=== PATIENT | male | born 1945 | race Caucasian/White ===

== ENCOUNTER → 2016-08-21 19:12 | Outpatient (CLI) | payer OTHER, MEDICAID ==
[2015-01-04 08:40] VITALS: BMI 33.6
[~2016-08-21 19:12] MED LIST: ECOTRIN325 MG PO; HYDROCHLOROTHIA25 MG GT; LANTUS SOL100 UNIT/1; NOVOLOG MIX 70/10 ML SQ; PLAVIX75 MG PO; PLETAL50 MG PO; TRIGLIDE160 MG PO; ZESTRIL40 MG PO; ZOCOR40 MG PO
== END | disposition home or self-care (01) ==
LOC: D.LABREF 19:12
DX: R82.71 Bacteriuria (principal)

== ENCOUNTER 2016-09-04 15:16 | Inpatient (IN) | payer MEDICARE, MEDICAID ==
[~2016-09-04] VITALS: Ht 188 cm; Wt 127.0 kg
--- NOTE | 2016-09-04 15:43 | NUR ---
1535-RECEIVED VIA DIRECT ADMIT IN WHEELCHAIR TO ROOM WITH PATIENT TELLING ME "MY SPEECH IS SLURRED". WHEN ASKED HE SAID THAT IT STARTED THIS AM. SMALL SCAB AREA SEEN TO UPPER BACK, HEALING SCABBED AREA UNDER RIGHT CHIN AREA (STATES HE CUTS HIMSELF SHAVING). LEFT HAND SUPREME COURT JUDGE AND LEFT PUSHING WITH FOOT IS SLIGHLTY WEAKER THAN RIGHT. LEFT HAND IS 2-3+ THAN RIGHT. RIGHT HAND 1-2+ EDEMA. INSTRCUTED TO USE CALL LIGHT FOR ALL NEEDS, BED ALARM SET. NON SKID SOCKS PLACED ON PATIENT ALONG WITH YELLOW ARM BAND. WILL ADMIT.
[2016-09-04] MEDS ORDERED: LANTUS SOL100 UNIT/1 SC ×2 (15:50→15:51)
[2016-09-04] MEDS ORDERED: NOVOLIN 70/30 110 ML SC (15:52)
[2016-09-04 15:53] VITALS: BP 146/88; BMI 36.0
[2016-09-04 16:12] LABS: BASOPHILS 0.4 % (0-2); EOSINOPHILS 4.2 % (0-7); HEMATOCRIT 35.9 % (42.0-54.0); HEMOGLOBIN 11.8 g/dL (13.5-17.5); IMMATURE GRANULOCYTES 0.3 % (0-5); MCH 30.7 pg (26.0-34.0); MCHC 32.9 g/dL (31.0-37.0); MCV 93.5 fL (80.0-100.0); MEAN PLATELET VOLUME 11.6 fL (7.4-10.4); NEUTROPHILS 68.1 % (40-80); PLATELET COUNT 204 10x3/uL (130-400); RBC 3.84 10x6/uL (4.20-6.10); RDW 13.1 % (11.5-14.5)
--- NOTE | 2016-09-04 16:16 | NUR ---
SALINE LOCK X 1 STICK WITH 22G PER CHAYA SINHA, RN
[2016-09-04 16:30] LABS: ALBUMIN 3.6 g/dL (3.4-5.0); ALKALINE PHOSPHATASE 57 U/L (46-116); ALT (SGPT) 26 U/L (10-68); BILIRUBIN - TOTAL 0.34 mg/dL (0.2-1.3); CALC OSMOLALITY 297 mosm/kg (275-300); CALCIUM 8.5 mg/dL (8.5-10.1); CARBON DIOXIDE 22.9 mmol/L (21.0-32.0); CHLORIDE - SERUM 109 mmol/L (98-107); CREATININE - SERUM 2.6 mg/dL (0.6-1.3); POTASSIUM - SERUM 5.6 mmol/L (3.5-5.1); PROTEIN - SERUM 6.9 g/dL (6.4-8.2); SODIUM 141 mmol/L (136-145); UREA NITROGEN 55 mg/dL (7-18); eGFR NON AFRICAN AMERICAN 26 mL/min (90-120)
[2016-09-04 16:31] LABS: GLUCOSE 132 mg/dL (74-106)
[2016-09-04 16:36] VITALS: BP 146/88
[2016-09-04 16:41] LABS: CKMB 6.2 U/L (0.0-3.6); CREATINE KINASE 236 UL (21-232); PRO BNP 863 pg/mL (0-125); THYROID STIMULATING HORMONE 1.38 uIU/mL (0.36-3.74)
[2016-09-04 16:44] LABS: TROPONIN-I < 0.017 ng/mL (0.000-0.060)
[2016-09-04 19:00] VITALS: BP 146/63
--- NOTE | 2016-09-04 19:49 | NUR ---
ASSESSMENT COMPLETE, PT A&O. RESPERATIONS EVEN ON RA. IV TO LEFT AC WITH NS INFUSING AT KVO. SITE CLEAN AND DRY. PT ASKING FOR ASSIST TO BR, ASKED IF HE WOULD USE HIS URINAL, PT INSISTED ON GETTING UP TO BR. GOT SECOND NURSE, STOOD PT WITH MAX ASSIST, PT WEAK, BUT STILL INSISTED ON WALKING TO BR. PT VOIDED 300 CC INTO URINAL. BACK TO BED WITH 2 PEOPLE ASSIST.
[2016-09-04 22:37] LABS: CREATINE KINASE 213 UL (21-232)
[2016-09-04 22:38] LABS: TROPONIN-I < 0.017 ng/mL (0.000-0.060)
[2016-09-05] VITALS: BP 163/75
--- NOTE | 2016-09-05 01:00 | NUR ---
CALL LIGHT IN REACH, WILL CONTINUE WITH PLAN OF CARE.
[2016-09-05 04:00] VITALS: BP 106/70
[2016-09-05 05:55] LABS: BASOPHILS 0.4 % (0-2); EOSINOPHILS 4.7 % (0-7); HEMATOCRIT 35.7 % (42.0-54.0); IMMATURE GRANULOCYTES 0.3 % (0-5); MCH 31.3 pg (26.0-34.0); MCHC 33.6 g/dL (31.0-37.0); MONOCYTES 9.1 % (2-11); NEUTROPHILS 62.5 % (40-80); PLATELET COUNT 191 10x3/uL (130-400); RBC 3.84 10x6/uL (4.20-6.10); WBC 7.5 10x3/uL (4.8-10.8)
[2016-09-05 07:19] LABS: ALBUMIN 3.3 g/dL (3.4-5.0); ALKALINE PHOSPHATASE 63 U/L (46-116); ALT (SGPT) 27 U/L (10-68); BILIRUBIN - TOTAL 0.31 mg/dL (0.2-1.3); CALCIUM 8.5 mg/dL (8.5-10.1); CARBON DIOXIDE 20.8 mmol/L (21.0-32.0); CHLORIDE - SERUM 104 mmol/L (98-107); CKMB 4.7 U/L (0.0-3.6); CREATINE KINASE 211 UL (21-232); CREATININE - SERUM 2.2 mg/dL (0.6-1.3); POTASSIUM - SERUM 5.3 mmol/L (3.5-5.1); PRO BNP 467 pg/mL (0-125); PROTEIN - SERUM 6.9 g/dL (6.4-8.2); SODIUM 136 mmol/L (136-145); UREA NITROGEN 52 mg/dL (7-18); eGFR NON AFRICAN AMERICAN 32 mL/min (90-120)
[2016-09-05 07:20] LABS: CALC OSMOLALITY 294 mosm/kg (275-300); GLUCOSE 269 mg/dL (74-106); TROPONIN-I < 0.017 ng/mL (0.000-0.060)
[2016-09-05 08:11] VITALS: BP 158/61
--- NOTE | 2016-09-05 08:27 | NUR ---
IV FLUIDS INCREASED TO 75 CC/HR ORDERED.
[2016-09-05 10:25] VITALS: Ht 188 cm; Wt 127.0 kg
[2016-09-05 12:08] VITALS: BP 167/55
[2016-09-05 15:17] VITALS: BP 159/60
--- NOTE | 2016-09-05 15:28 | NUR ---
SCD'S ON EUGENIO LE
--- NOTE | 2016-09-05 17:42 | NUR ---
SALINE LOCK REMOCED WITH CATH TIP INTACT. VERBAL AND WRITTEN DISCHARGE INSTRUCTIONS GIVEN TO PATIENT. DISCHARGED HOME VIA WHEELCHAIR.
--- NOTE | 2016-09-05 18:13 | NUR ---
Patient Name: STEW AARON Admission Status: Urgent Accout number: [id number] Admission Date: 09-04-2016 : 1945 Admission Diagnosis:SHORTNESS OF BREATH Attending: LUCINA Current LOS: 1 Anticipated DC Date: 09-05-2016 Planned Disposition: Home Primary Insurance: [facility] LATE ENTRY: Discharge Planning Comments: * Is the patient Alert and Oriented? Yes 0 * How many steps to enter\exit or inside your home? 3 0 * PCP DR. JOHN 0 * Pharmacy [facility] 0 * Preadmission Environment Home Alone 0 * ADLs Independent 0 * Equipment Cane Shower Chair Walker 0 * Other Equipment NO MEDICAL EQUIPMENT PROVIDER PREFERENCE 0 * List name and contact numbers for known caregivers / representatives who currently or will assist patient after discharge: JULIETA CHAPA, BROTHER IN LAW, (LIVES NEXT DOOR TO PT) 0 * Community resources currently utilized None 0 * Please name any agencies selected above. NONE 0 * Additional services required to return to the preadmission environment? No 0 * Can the patient safely return to the preadmission environment? Yes 0 * Has this patient been hospitalized within the prior 30 days at any hospital? No 0 CM MET WITH PT IN ROOM TO DISCUSS DISCHARGE PLANNING AND NEEDS. PT REPORTS LIVING AT HOME INDEPENDENTLY AND ALONE. PT HAS CANE, SHOWER CHAIR AND WALKER. PT HAS NO OUTSIDE SERVICES ASSISTING IN THE HOME. CM DISCUSSED AVAILABILITY OF HOME HEALTH, REHAB SERVICES AND MEDICAL EQUIPMENT. PT DENIES DISCHARGE NEEDS, REPORTS IS DRIVING HIMSELF HOME AT DISCHARGE TODAY. Oil [employer] Caser: Shar Osborn
--- NOTE | 2016-09-08 15:02 | CN ---
PATIENT NAME:STEW AARON MEDICAL RECORD: [id number] : [birth year] LOCATION:D.M2 D.2104 ADMIT DATE: 09/04/16 ACCOUNT: [id number] CONSULTING PHYSICIAN: DOMINIC LYNCH MD REFERRING PHYSICIAN: VERONICA JOHN DO DATE OF CONSULTATION: 09/04/2016 Cardiology Consultation DIAGNOSES: 1. Dyspnea on exertion and shortness of breath. 2. Coronary artery disease. 3. Previous cardiac stenting. 4. Hypertension. 5. Hyperlipidemia. HISTORY OF PRESENT ILLNESS: This is a gentleman who was previously followed by Dr. Narayan, PTCA stent 1 year ago and he has been short of breath; however, after the stent, the shortness of breath did not change. He is markedly overweight and out of shape. He has not had any chest pain or chest discomfort. Troponin is normal. EKG is with no acute ST-T abnormalities. Blood pressure is controlled on Zestril, hyperlipidemia is controlled on Zocor. He does remain on aspirin and Plavix. PHYSICAL EXAMINATION: GENERAL APPEARANCE: Well-nourished, well-developed, appears stated age. Level of distress, comfortable. PSYCHIATRIC: Mental status, alert, normal affect. Orientation, oriented to time, place and person. EYES: Lids and conjunctiva, noninjected. No discharge, no pallor. ENT: Lips, teeth, gums, normal dentition. Oropharynx, no cyanosis, no pallor. NECK: Carotid arteries, bilateral normal upstroke, no bruits, no thrills. JUGULAR VEINS: No jugular venous pressure or distention. CERVICAL LYMPH NODES: Nontender, nonenlarged. THYROID: Not enlarged. Nontender. No nodules. LUNGS: Respiratory effort, unlabored. CHEST: Normal curvature. No thoracic deformity. No chest wall tenderness. Percussion, resonant. Auscultation, clear. No wheezes, no rales, no rhonchi. CARDIOVASCULAR: Precordial exam, nondisplaced. No heaves or pericardial thrills. Rate and rhythm, regular. Heart sounds, normal S1, normal S2. No S3, no gallop, no rub. Systolic murmur, not heard. Diastolic murmur, not heard. EXTREMITIES: No cyanosis, no edema. Peripheral pulses, full and equal in all extremities, except as noted. No bruits appreciated. ABDOMEN: Soft, nondistended. Normal aorta. No bruit. Nontender. No masses. Liver, nontender, no hepatomegaly. Spleen, nontender, no splenomegaly. MUSCULOSKELETAL: No joint tenderness. No joint swelling. No erythema. NEUROLOGICAL: Normal gait, normal strength, normal tone. SKIN: Warm and dry. REVIEW OF SYSTEMS: The patient reports easy bruising but reports no swollen glands. The patient reports no fever, no night sweats, no significant weight gain, no significant weight loss. No significant exercise tolerance. The patient reports no dry eyes, no irritation, no vision change. Patient reports no difficulty hearing and no ear pain. Patient reports no frequent nose bleeds or nose and sinus problems. Patient reports on arm pain on exertion. No CONSULT REPORT [id number] STEW AARON shortness of breath while lying down. No history of heart murmur. Patient reports no cough, no wheezing or coughing up blood. Patient reports no abdominal pain, no vomiting. Normal appetite. No diarrhea and not vomiting blood. No nausea and no constipation. Patient reports no incontinence. No difficulty urinating. No hematuria. No increased frequency. Patient reports no muscle aches. No weakness, no arthralgias, no back pain. No swelling of the extremities. Patient reports no abnormal mole, no jaundice, no rashes. Reports no loss of consciousness. No weakness and no numbness. No seizures, dizziness, or headaches. The patient reports no depression, no sleep disturbance, feeling safe in a relationship and no alcohol abuse. Patient reports on fatigue. Reports no runny nose or sinus pressure. No itching, no hives, and no frequent sneezing. OVERALL IMPRESSION: Shortness of breath, dyspnea on exertion, this is more of chronic issue. According to his history, this is nothing acute and has not worsened with no chest pain and shortness of breath was no different after the percutaneous transluminal coronary angioplasty stent for single-vessel disease. I do not feel strongly that he needs continued workup from the standpoint of ischemic heart disease. I do not think that his shortness of breath is secondary to his ongoing ischemic heart disease. TRANSINT:[id number] Voice Confirmation ID: [id number] DOCUMENT ID: [id number] DOMINIC LYNCH MD at [id number] CC: [id number] DICTATION DATE: 09/04/16 165 STUDENT DEVELOPMENT SPECIALIST: 09/05/16 0036 DIS IN 09/05/16 [facility] [address] [place], [facility]
== END 2016-09-05 17:43 | disposition home or self-care (01) | DRG 684 ==
LOC: D.M2 15:16
PROVIDERS: ADMIT Family Medicine
DX: N19 Unspecified kidney failure (principal); I25.10 Atherosclerotic heart disease of native coronary artery without angina pectoris; I10 Essential (primary) hypertension; E78.5 Hyperlipidemia, unspecified; E11.9 Type 2 diabetes mellitus without complications; Z95.5 Presence of coronary angioplasty implant and graft; Z86.73 Personal history of transient ischemic attack (TIA), and cerebral infarction without residual deficits; Z87.891 Personal history of nicotine dependence

== ENCOUNTER → 2016-10-02 20:22 | Outpatient (CLI) | payer MEDICARE, MEDICAID ==
[2016-09-05 10:25] VITALS: BMI 35.9
[~2016-10-02 20:22] MED LIST changes: +LANTUS SOL100 UNIT/1 SC; +NOVOLIN 70/30 110 ML SC
== END | disposition home or self-care (01) ==
LOC: D.LABREF 20:22
DX: Z13.89 Encounter for screening for other disorder (principal)

== ENCOUNTER 2016-11-10 14:48 | Inpatient (IN) | payer MEDICARE, MEDICAID ==
[~2016-11-10] VITALS: Ht 188 cm; Wt 122.3 kg
[~2016-11-10 14:48] MED LIST changes: -HYDROCHLOROTHIA25 MG GT; +HYDROCHLOROTHIA25 MG PO
[2016-11-10 15:51] LABS: BASOPHILS 0.2 % (0-2); EOSINOPHILS 2.2 % (0-7); HEMATOCRIT 37.6 % (42.0-54.0); HEMOGLOBIN 12.1 g/dL (13.5-17.5); IMMATURE GRANULOCYTES 0.3 % (0-5); LYMPHOCYTES 11.5 % (15-50); MCH 30.4 pg (26.0-34.0); MCHC 32.2 g/dL (31.0-37.0); MCV 94.5 fL (80.0-100.0); MEAN PLATELET VOLUME 10.9 fL (7.4-10.4); MONOCYTES 8.8 % (2-11); PLATELET COUNT 298 10x3/uL (130-400); RBC 3.98 10x6/uL (4.20-6.10); RDW 12.7 % (11.5-14.5); WBC 12.2 10x3/uL (4.8-10.8)
[2016-11-10 16:00] VITALS: BP 155/74
--- NOTE | 2016-11-10 17:01 | NUR ---
WOUND CARE CONSULT: LARGE NECROTIC WOUND NOTED TO LATERAL HEEL OF LEFT FOOT. FOUL SMELLING. MEASURES APPROX 10CM X 10CM X NECROTIC WET BLACK TISSUE. PERIWOUND IS RED WITH OOZING PUSTULES. WOUND CULTURES OBTAINED PER ORDERS AFTER CLEANSING WELL. APPLIED MAXORB AG TO WOUND BED COVERED WITH 4X4S AND SECURED WITH KERLIX. PT TOLERATED WELL.
[2016-11-10 17:09] LABS: ALBUMIN 3.7 g/dL (3.4-5.0); BILIRUBIN - TOTAL 0.3 mg/dL (0.2-1.3); CALCIUM 9.4 mg/dL (8.5-10.1); CARBON DIOXIDE 23.1 mmol/L (21.0-32.0); CREATININE - SERUM 2.7 mg/dL (0.6-1.3); POTASSIUM - SERUM 5.1 mmol/L (3.5-5.1); PROTEIN - SERUM 7.8 g/dL (6.4-8.2)
[2016-11-10 18:56] VITALS: BP 155/74; BMI 35.2
--- NOTE | 2016-11-10 19:35 | NUR ---
PT IN BED WITH HOB UP FOR COMFORT. WATCHING TV. ALERT & ORIENTED. NO O2. RIGHT AC NS @ 100ML/HR. UNITED AUBURN. BED IN LOWEST POSITION AND CALL LIGHT WITHIN REACH.
[2016-11-10 20:08] VITALS: BP 173/68
[2016-11-11 01:09] VITALS: BP 139/43
[2016-11-11 04:00] VITALS: BP 126/40
[2016-11-11 04:53] LABS: BASOPHILS 0.3 % (0-2); HEMATOCRIT 34.3 % (42.0-54.0); HEMOGLOBIN 10.9 g/dL (13.5-17.5); IMMATURE GRANULOCYTES 0.2 % (0-5); LYMPHOCYTES 17.5 % (15-50); MCH 29.8 pg (26.0-34.0); MCHC 31.8 g/dL (31.0-37.0); MCV 93.7 fL (80.0-100.0); MEAN PLATELET VOLUME 10.8 fL (7.4-10.4); MONOCYTES 9.1 % (2-11); NEUTROPHILS 69.9 % (40-80); PLATELET COUNT 248 10x3/uL (130-400); RBC 3.66 10x6/uL (4.20-6.10); RDW 12.6 % (11.5-14.5); WBC 10.6 10x3/uL (4.8-10.8)
[2016-11-11 05:27] LABS: ALBUMIN 2.9 g/dL (3.4-5.0); ANION GAP 14.4 mmol/L (8-16); BILIRUBIN - TOTAL 0.4 mg/dL (0.2-1.3); CALCIUM 8.9 mg/dL (8.5-10.1); CARBON DIOXIDE 22.5 mmol/L (21.0-32.0); CREATININE - SERUM 2.5 mg/dL (0.6-1.3); POTASSIUM - SERUM 4.9 mmol/L (3.5-5.1); PROTEIN - SERUM 6.9 g/dL (6.4-8.2)
--- NOTE | 2016-11-11 05:55 | NUR ---
RIGHT AC INFILTRATED. D/C WITH CATH TIP INTACT.
[2016-11-11 06:00] LABS: ERYTHROCYTE SEDIMENTATION RATE 48 mm/hr (0-20)
--- NOTE | 2016-11-11 06:11 | NUR ---
LEFT HAND 22GAUGE INSERTED ON X1 ATTEMPT BY JASWANT BASURTO.
[2016-11-11 08:00] VITALS: BP 143/56
[2016-11-11 09:57] VITALS: Ht 188 cm; Wt 122.3 kg
[2016-11-11 12:00] VITALS: BP 176/77
[2016-11-11 16:00] VITALS: BP 192/82
--- NOTE | 2016-11-11 16:03 | NUR ---
ALERT AND ORIENTED X4. RESTING IN BED WATCHING TV. LT FOOT DRESSING CHANGE COMPLETE PER ORDER. DENIES PAIN OR SOB. REFUSE SCDs. BED LOCKED AND LOW. CALL LIGHT IN REACH. TWO SIDERAILS UP.
[2016-11-11 19:00] VITALS: BP 154/61
--- NOTE | 2016-11-11 19:17 | NUR ---
Received patient in bed watching TV. Alert and oriented x 4. PIV in back of left hand, currently infusing Vancomycin IVPB. Dressing to left foot is C/D/I and dated. Denies any pain or discomfort at this time. Will continue to monitor.
--- NOTE | 2016-11-11 21:39 | NUR ---
HS Blood sugar = 317, given 12 Units of Regular Humulin insulin per sliding scale and given routine dose of 65 Units of Lantus. Last BP = 154/61, was 192/82 on previous shift and had been given Lisinopril 40mg @1820. Continues to deny pain or discomfort.
[2016-11-12] VITALS (7 sets, daily range): BP systolic 111–157; BP diastolic 52–79
--- NOTE | 2016-11-12 01:12 | NUR ---
Resting comfortably in bed, respirations unlabored, eyes closed, quiet, deemed to be sleeping.
--- NOTE | 2016-11-12 04:41 | NUR ---
Continues sleeping, no signs of distress.
[2016-11-12 05:09] LABS: BASOPHILS 0.4 % (0-2); EOSINOPHILS 4.5 % (0-7); HEMATOCRIT 34.2 % (42.0-54.0); IMMATURE GRANULOCYTES 0.2 % (0-5); LYMPHOCYTES 15.1 % (15-50); MCHC 32.2 g/dL (31.0-37.0); MCV 93.2 fL (80.0-100.0); MEAN PLATELET VOLUME 10.6 fL (7.4-10.4); MONOCYTES 9.4 % (2-11); NEUTROPHILS 70.4 % (40-80); PLATELET COUNT 240 10x3/uL (130-400); RBC 3.67 10x6/uL (4.20-6.10); RDW 12.5 % (11.5-14.5); WBC 8.9 10x3/uL (4.8-10.8)
[2016-11-12 05:16] LABS: HEMOGLOBIN A1C 10.1 % (4.8-6.0)
[2016-11-12 05:20] LABS: ANION GAP 15.5 mmol/L (8-16); BILIRUBIN - TOTAL 0.3 mg/dL (0.2-1.3); CALCIUM 8.5 mg/dL (8.5-10.1); CARBON DIOXIDE 24.4 mmol/L (21.0-32.0); CREATININE - SERUM 2.4 mg/dL (0.6-1.3); POTASSIUM - SERUM 4.9 mmol/L (3.5-5.1); PROTEIN - SERUM 6.6 g/dL (6.4-8.2); VANCOMYCIN - TROUGH 16.3 ug/mL (10.0-20.0)
--- NOTE | 2016-11-12 15:57 | NUR ---
ALERT AND ORIENTED X4. RESTING IN BED. CONSENTS FOR LT FOOT DEBRIDEMENT SIGNED ON CHART. SHOWER AND LINEN CHANGE COMPLETE. DENIES ANY NEEDS. BED LOCKED AND LOW. CALL LIGHT IN REACH. TWO SIDERAILS UP.
--- NOTE | 2016-11-12 17:00 | NUR ---
TAKEN TO PROCEDURE VIA BED. CONTINUE PLAN OF CARE AND SAFETY PRECAUTIONS.
--- NOTE | 2016-11-12 18:49 | NUR ---
ALERT AND ORIENTED X4. RETURN TO ROOM VIA BED FROM PROCEDURE. NS INFUSING LT HAND IV AT 100mL/HR. INSTRUCTED FROM OR-DOCTOR TO MAKE PATIENT CONTACT ISO. BP-147/67, T-97.8, R-18, O2-95% RA, P-70. ELEVATE LT FOOT ON PILLOW. DENIES PAIN. FOOT WRAPPED WITH RAVI BANDAGE. REPORT OFF TO SB GANDHI TO TAKE OVER PLAN OF CARE. BED LOCKED AND LOW. CALL LIGHT IN REACH. TWO SIDERAILS UP.
--- NOTE | 2016-11-12 20:35 | NUR ---
NURSE ROUNDS @ 19:30 - PT TRYING TO AMBULATE AFTER JUST RETURNING FROM SURGERY FOR I&D TO LEFT FOOT. I INSTRUCTED PT TO ALWAYS CALL WHEN NEEDING ANY ASSISTANCE, THE BLOCK IN HIS FOOT/LEG IS STILL ACTIVE AND HE IS AT GREAT RISK FOR FALLING. PT WAS ASSISTED TO BATHROOM BY TELECOMMUNICATION SYSTEMS DESIGNER AND RETURNED TO BED WITHOUT ANY DIFFICULTY. WILL ENCOURAGE PT TO USE A URINAL UNTIL HE IS MORE STABLE TO WALK. PT C/O BEING HUNGRY, SO I DID GIVE HIM A TURKEY SANDWICH WITH GRAPES AND DIET COLA. PT DENIES ANY NEEDS, DRESSING/WRAP CLEAN, DRY, AND INTACT. CONTINUE TO MONITOR PT CLOSELY. BED ALARM ON. BED LOW, CALL LIGHT IN REACH, SIDE RAILS X 2, HOB 40 DEGREES SO PT CAN EAT.
[2016-11-13] VITALS: BP 129/42
--- NOTE | 2016-11-13 01:24 | NUR ---
PT RESTING COMFORTABLY, EASILY ROUSABLE TO VERBAL STIMULI, DENIES ANY NEEDS. CONTINUE TO MONITOR CLOSELY. PT STATES HIS FOOT IS STILL "" FROM RECENT SURGERY AND NERVE BLOCK USED. CONTINUE TO MONITOR CLOSELY. BED LOW, CALL LIGHT IN REACH, SIDE RAILS X 2, HOB 20 DEGREES.
[2016-11-13 04:00] VITALS: BP 157/69
[2016-11-13 04:59] LABS: BASOPHILS 0.2 % (0-2); EOSINOPHILS 3.9 % (0-7); HEMATOCRIT 33.1 % (42.0-54.0); HEMOGLOBIN 10.8 g/dL (13.5-17.5); IMMATURE GRANULOCYTES 0.2 % (0-5); LYMPHOCYTES 14.3 % (15-50); MCH 30.2 pg (26.0-34.0); MCHC 32.6 g/dL (31.0-37.0); MCV 92.5 fL (80.0-100.0); MEAN PLATELET VOLUME 10.8 fL (7.4-10.4); MONOCYTES 8.6 % (2-11); NEUTROPHILS 72.8 % (40-80); PLATELET COUNT 258 10x3/uL (130-400); RBC 3.58 10x6/uL (4.20-6.10); RDW 12.5 % (11.5-14.5); WBC 9.1 10x3/uL (4.8-10.8)
[2016-11-13 05:24] LABS: ALBUMIN 2.7 g/dL (3.4-5.0); ANION GAP 12.3 mmol/L (8-16); BILIRUBIN - TOTAL 0.25 mg/dL (0.2-1.3); CALCIUM 8.3 mg/dL (8.5-10.1); CARBON DIOXIDE 26.2 mmol/L (21.0-32.0); CREATININE - SERUM 2.1 mg/dL (0.6-1.3); POTASSIUM - SERUM 4.5 mmol/L (3.5-5.1)
--- NOTE | 2016-11-13 08:08 | NUR ---
AM ROUNDS - PT IN BED AND APPEARS TO BE SLEEPING AT THIS TIME WITH EQUALA ND NON LABORED BREATHING. IV TO LEFT HAND, NS AT 100. PT ON CONTACT ISOLATION. PT IS ON ROOM AIR. WILL CONTINUE TO MONITOR
[2016-11-13 09:12] VITALS: BP 128/60
--- NOTE | 2016-11-13 10:43 | OP ---
PATIENT NAME: STEW CAVANAUGH MEDICAL RECORD: [id number] :[birth year] LOCATION:D. D.2105 ADMISSION DATE:11/10/16 SURGEON: JAYLAN DING DO DATE OF OPERATION: 11/12/2016 PROCEDURE PERFORMED: Left foot necrotic wound debridement. PREOPERATIVE DIAGNOSIS: Left foot, necrotic wound. POSTOPERATIVE DIAGNOSIS: Left foot, necrotic wound. INDICATIONS: Mr. Cavanaugh is a 71-year-old diabetic, who presented to the hospital 2 days ago after having been run over by a shopping cart 3 weeks prior, had had a wound on his left lateral foot. He did not seek any attention or any kind of care until it started to smell bad and he went to his primary care. The primary care admitted him to the hospital and that is where I saw him with a left lateral foot wound that had had some granulation tissue over it and a necrotic area of the inferior margin of the lateral foot just distal to the lateral malleolus and kind of over the lateral calcaneus. MRI was done, which did not show any osteomyelitis, it just showed wound and it was decided to do a debridement of the wound with cultures. He was consented for this procedure. SURGEON: Jaylan Ding DO. ASSISSTANT: None. DESCRIPTION OF PROCEDURE: The patient was given a popliteal block by anesthesia. He was then taken to the operative suite, placed in supine position and given some MAC anesthesia and he was prepped and draped in the left leg up to the knee with Betadine. A timeout was then performed. Everyone was in agreement. The patient has already been on antibiotics on the floor, which have been continued. The left lateral foot was then debrided all the excess skin and the granulation tissue was scraped with a curette to have bleeding surfaces and irrigated well. Then, a small area of necrosis at the inferior margin of that lateral foot just on the calcaneus, the necrotic tissue was debrided and curetted as well, curetted down to what appeared to be the calcaneal fat pad and all necrotic tissue was taken out at that time. Wound was then copiously irrigated. Once the necrotic tissue was all removed and the whole wound was scrubbed with a scrub brush and actually saline was used and then irrigate again. Cultures were taken prior to the irrigation. Three cultures, aerobic, anaerobic as well as Gram stain were all done at that time, three of each. The wound was then irrigated copiously and wet to dry dressing was placed after an Adaptic was placed over the wound and Tavo wraps placed on top of that, wet to dry 4 x 4s and Kerlix and Tavo wrap. The patient was then taken back to the PACU for recovery. Blood loss was minimal. TRANSINT:[id number] Voice Confirmation ID: [id number] DOCUMENT ID: [id number] OPERATIVE REPORT [id number] STEW CAVANAUGH,JAYLAN Buckner DO at 1043 CC: [id number] DICTATION DATE: 11/12/16 183 PORTAINER OPERATOR: 11/13/16 0056 ADM IN [place] [id number] [place] [address]
[2016-11-13 11:33] VITALS: BP 173/80
--- NOTE | 2016-11-13 13:36 | NUR ---
Patient Name: STEW AARON Admission Status: Urgent Accout number: [id number] Admission Date: 11-10-2016 : 1945 Admission Diagnosis:CELLULITIS OF LEFT LOWER LIMB Attending: VERONICA JOHN Current LOS: 3 Anticipated DC Date: 11-14-2016 Planned Disposition: Home with Home Health Primary Insurance: [facility] PLANNED EXTERNAL PROVIDER: [facility] Discharge Planning Comments: * Is the patient Alert and Oriented? Yes 0 * How many steps to enter\exit or inside your home? 3 0 * PCP DR. JOHN 0 * Pharmacy [facility] ON [address] 0 * Preadmission Environment Home Alone 0 * ADLs Independent 0 * Equipment Cane Shower Chair Walker 0 * Other Equipment NO MEDICAL EQUIPMENT PROVIDER PREFERENCE 0 * List name and contact numbers for known caregivers / representatives who currently or will assist patient after discharge: JULIETA CHAPA, BROTHER IN LAW, (LIVES NEXT DOOR TO PT) 0 * Community resources currently utilized None 0 * Please name any agencies selected above. NONE 0 * Additional services required to return to the preadmission environment? Yes * Can the patient safely return to the preadmission environment? Yes 0 * Has this patient been hospitalized within the prior 30 days at any hospital? No [address] JOHN WHO PROVIDED ORDER FOR DIABETIC SHOES AND WOULD LIKE THEM DELIVERED TO HOSPITAL IF POSSIBLE. CM MET WITH PT IN ROOM TO DISCUSS DISCHARGE PLANNING AND NEEDS. PT REPORTS LIVING AT HOME INDEPENDENTLY AND ALONE. PT HAS CANE, SHOWER CHAIR AND WALKER WITH NO MEDICAL EQUIPMENT PROVIDER PREFERENCE. PT HAS NO OUTSIDE SERVICES ASSISTING IN THE HOME. CM DISCUSSED AVAILABILITY OF HOME HEALTH, REHAB SERVICES AND MEDICAL EQUIPMENT. PT HAS NO PREFERENCE ON HOME HEALTH PROVIDER IF HE NEEDS IT, CHOICE SIGNED. PT HAS NO PROVIDER PREFERNCE FOR DIABETIC SHOES. PT REPORTS HE IS DRIVING HIMSELF HOME FOR DISCHARGE. IMPORTANT MESSAGE FROM MEDICARE PROVIDED AND EXPLAINED. KAYLA CALLED [employer], , SPOKE TO NERISSA AND DISCUSSED ORDER. NERISSA ADVISED THAT PT WILL HAVE TO BE FITTED AND SHOES ORDERED, CAN TAKE A WEEK AND A HALF TO GET THEM IN. NERISSA WOULD LIKE TO PLACE A WOUND SHOE ON PT'S INURED FOOT UNTIL THE SHOES CAN BE OBTAINED. KAYLA INFORMED DR. JOHN WHO REPORTS THIS TO BE OK. CM CALLED [facility], NOTIFIED NERISSA VIA MESSAGE AND FAXED ORDER AND SUPPORTING DOCUMENTS TO SHANE AT [phone]. CM CALLED [facility], , NOTIFIED PT IS OUT OF NETWORK WITH INSURANCE. CM CALLED [facility], , SPOKE TO SURYA WHO REPORTS TO BE IN NETWORK WITH INSURANCE; SHE WILL FORWARD REFERRAL TO [facility] FOR ADMIT ON DISCHARGE. CM FAXED REFERRAL TO [facility] AT [place], . CM WAITING [facility] TO FIT PT WITH WOUND SHOE FOR LEFT FOOT; [facility] TO FIT AND ORDER DIABETIC SHOES FOR PT. FOR DISCHARGE WITH [facility], SPECIFIC HOME HEALTH ORDERS WILL BE NEEDED TO NOTIFY [facility] AT [phone], FAX ORDERS AND INSTRUCTIONS TO [place] AT [phone]. Final Inspector And Tester: Shar Osborn
--- NOTE | 2016-11-13 15:26 | NUR ---
DRESSING CHANGE TO LEFT LAT FOOT. WOUND APPROX SIZE IS 4CM X 2CM. PINK IN COLOR. SEROSANGUINEOUS DRAINAGE. WILL CONTINUE TO MONITOR
[2016-11-13 16:13] VITALS: BP 152/74
--- NOTE | 2016-11-13 18:14 | NUR ---
PT RESTING IN BED WITH NO NEEDS AT THIS TIME. WILL CONTINUE TO MONITOR
[2016-11-13 19:00] VITALS: BP 142/68
--- NOTE | 2016-11-13 20:39 | NUR ---
PT LYING IN BED, AWAKE, ALERT, ORIENTED, DENIES ANY NEEDS. PT STATES HE HAS AMBULATED TODAY WITHOUT DIFFICULTY. PT DENIES PAIN IN HIS LEFT FOOT, BUT STATES IT IS SORE AT TIMES. CONTINUE TO MONITOR CLOSELY. BED LOW, CALL LIGHT IN REACH, SIDE RAILS X 2, HOB 20 DEGREES.
--- NOTE | 2016-11-13 22:27 | NUR ---
DURING PTS INSULIN ADMINISTRATION @ 20:30, I NOTICED PTS IV TO LEFT HAND WAS LEAKING. UPON FURTHER ASSESSMENT, PT'S IV HAS IN FACT INFILTRATED DURING HIS ZOSYN ADMINISTRATION. WILL RESITE AND START HIS VANCOMYCIN SOON POSSIBLE.
[2016-11-13 22:37] LABS: APPEARANCE HAZY (CLEAR); BILIRUBIN NEGATIVE (NEGATIVE); COLOR STRAW (YELLOW); GLUCOSE 500 mg/dL (NEGATIVE); KETONE NEGATIVE (NEGATIVE); LEUKOCYTE ESTERASE 1+ (NEGATIVE); NITRITE NEGATIVE (NEGATIVE); PROTEIN 1+ mg/dL (NEGATIVE); SPECIFIC GRAVITY 1.015 (1.005-1.020); UROBILINOGEN NORMAL (NORMAL)
[2016-11-13 22:40] LABS: EPITHELIAL CELLS 0-5 /hpf (0-5); RED CELLS - URINE 0-5 /hpf (0-5); WHITE CELLS - URINE 25-50 /hpf (0-5)
[2016-11-13 22:41] LABS: BACTERIA MODERATE /hpf (NONE SEEN); YEAST RARE /hpf (NONE SEEN)
[2016-11-14] VITALS: BP 157/49
--- NOTE | 2016-11-14 00:06 | NUR ---
IV RESITED TO RIGHT FOREARM, 20 GAUGE, 1 ATTEMPT BY JASWANT BASURTO. VANCOMYCIN NOW RUNNING @ 100MLS/HR. PT TOLERATED WELL, CONTINUE TO MONITOR CLOSELY.
--- NOTE | 2016-11-14 05:15 | NUR ---
PT RESTING COMFORTABLY, EASILY ROUSABLE TO VERBAL STIMULI, DENIES ANY NEEDS. I HAD TO CHANGE PTS ZOSYN TIME, EVERYTHING GOT OFF TRACK WHEN PTS IV INFILTRATED TO LEFT HAND. ALSO NEEDED TO COORDINATE THE 4 HOUR ZOSYN INFUSION TO NOT OVER LAP WITH THE VANCOMYCIN INFUSION. CONTINUE TO MONITOR CLOSELY. BED LOW, CALL LIGHT IN REACH, SIDE RAILS X 2, HOB 10 DEGREES.
[2016-11-14 05:33] LABS: HEMATOCRIT 32.3 % (42.0-54.0); HEMOGLOBIN 10.4 g/dL (13.5-17.5)
[2016-11-14 07:59] VITALS: BP 171/63
--- NOTE | 2016-11-14 08:03 | NUR ---
AM ROUNDS - PT IN BED AND APPEARS TO BE SLEEPING WITH EQUAL AND NON LABORED BREATHING. IV TO RIGHT RA, NS AT 100CC/HR. PT IS ON CONTACT ISOLATION. BED AT LOWEST POSITION. CALL COKER IN USE/REACH. SIDE RAILS UP X2. WILL CONTINUE TO MONITOR
[2016-11-14 11:52] VITALS: BP 190/78
--- NOTE | 2016-11-14 13:32 | NUR ---
Nutrition Follow Up: Pt was asleep at the time of RD visit. Interview deferred at this time. Pt is eating 100% meal avg on a diabetic diet. +BM 11/11/16. Wt stable. Labs reviewed. Meds noted. Rec continue current diet. RD following.
--- NOTE | 2016-11-14 15:11 | NUR ---
ANKLE FOOT ORTHOSES, AFO, BOOT PLACE ON PT'S LEFT FOOT. HEAL IS FLOATING WITH NO PREASURE. WILL CONTINUE TO MONITOR
--- NOTE | 2016-11-14 15:46 | NUR ---
Rehab Note- Acute Rehab Prescreen order received. The patient has [facility] insrance and will require a PreAuth prior to acute rehab stay. Will begin PreAuth process. Will follow at this time. Thank you for this referral! Citlalli Brown RN Clinical Liaison, [facility] Rehab
[2016-11-14 16:12] VITALS: BP 157/83
--- NOTE | 2016-11-14 16:12 | NUR ---
Rehab Note- Began PreAuth process with [facility], Reference #[id number]. Will await contact for requested clinicals from [facility]. Will continue to follow at this time. Citlalli Brown RN Clinical Liaison, [facility] Rehab
--- NOTE | 2016-11-14 16:26 | NUR ---
Patient Name: STEW AARON Encounter No: [id number] : 1945 Primary Insurance: [id number] Anticipated DC Date: 11-14-2016 Planned Disposition: Home with Home Health External Planned Provider: [facility] DCP follow-up note: NERISSA ARRIVED, REPORTED SPEAKING TO DR. JOHN AND RECEIVING ORDERS; NERISSA FITTED PT WITH "AFO" BOOT ON LEFT FOOT AND WILL FIT PT FOR DIABETIC SHOES AND ORDER ONCE FOOT WOUND IS HEALED. CM RECEIVED ORDERS FOR INPATIENT REHAB PRESCREENING; CM MET WITH PT IN ROOM AND DISCUSSED INPATIENT REHAB LOCATIONS AND AVAILABILITY. PT INITIALLY STATED THAT HE WOULD LIKE TO BE CONSIDERED FOR REHAB HERE AT [place]. CM LATER SPOKE TO PHYSICAL THERAPIST WHO REPORTED THAT PT TOLD HIM THAT HE HAS BILLS TO PAY AND JUST WANTS TO GO HOME; CM MET WITH PT IN ROOM, PT REPORTS HE PREFERS TO GO HOME WITH HOME HEALTH; PT WILL NOT CONSIDER GOING TO [facility] FACILITY. CM CALLED [facility], , SPOKE TO MARTI WHO PUT PT ON SCHEDULE FOR WEEKEND IN CASE OF DISCHARGE. FOR DISCHARGE WITH HOME HEALTH, SPECIFIC HOME HEALTH ORDERS WILL BE NEEDED TO NOTIFY [facility] AT [phone], FAX ORDERS AND INSTRUCTIONS TO [facility] AT [phone]. Licensed Optician: Shar Osborn
--- NOTE | 2016-11-14 18:38 | NUR ---
PT IN BED WITH NO NEEDS AT THIS TIME. WILL CONTINUE TO MONITOR
[2016-11-14 19:00] VITALS: BP 199/80
--- NOTE | 2016-11-14 23:13 | NUR ---
NURSE ROUNDS 21:00 - PT AWAKE, ALERT, ORIENTED, DENIES ANY NEEDS. CONTINUE TO MONITOR CLOSELY. BED LOW, CALL LIGHT IN REACH, SIDE RAILS X 2, HOB 20 DEGREES.
[2016-11-15] VITALS: BP 172/71
--- NOTE | 2016-11-15 01:00 | NUR ---
PTS IV IN RIGHT FOREARM HAS INFILTRATED DURING THE ZOSYN INFUSION. IV REMOVED WITH CATH TIP INTACT. WILL RESITE.
--- NOTE | 2016-11-15 01:23 | NUR ---
IV RESITED TO LEFT FOREARM BY MERLE BASURTO, 20 GAUGE X 1 STICK.
[2016-11-15 04:00] VITALS: BP 167/68
[2016-11-15 04:47] LABS: BASOPHILS 0.6 % (0-2); EOSINOPHILS 4.6 % (0-7); HEMATOCRIT 32.4 % (42.0-54.0); HEMOGLOBIN 10.7 g/dL (13.5-17.5); IMMATURE GRANULOCYTES 0.4 % (0-5); LYMPHOCYTES 21.8 % (15-50); MCH 30.1 pg (26.0-34.0); MEAN PLATELET VOLUME 10.3 fL (7.4-10.4); MONOCYTES 8.3 % (2-11); NEUTROPHILS 64.3 % (40-80); PLATELET COUNT 271 10x3/uL (130-400); RBC 3.56 10x6/uL (4.20-6.10); RDW 12.4 % (11.5-14.5); WBC 8.1 10x3/uL (4.8-10.8)
[2016-11-15 05:26] LABS: ALBUMIN 2.7 g/dL (3.4-5.0); ANION GAP 10.7 mmol/L (8-16); BILIRUBIN - TOTAL 0.22 mg/dL (0.2-1.3); CALCIUM 8.4 mg/dL (8.5-10.1); CARBON DIOXIDE 26.1 mmol/L (21.0-32.0); CREATININE - SERUM 2.1 mg/dL (0.6-1.3); POTASSIUM - SERUM 3.8 mmol/L (3.5-5.1); PROTEIN - SERUM 6.8 g/dL (6.4-8.2)
--- NOTE | 2016-11-15 07:15 | NUR ---
Received report, assumed care of patient. Pt has no c/o pain and is alert and oriented with patent IV to left forearm. Chart to be reviewed for orders.
[2016-11-15 08:38] VITALS: BP 134/62
--- NOTE | 2016-11-15 10:43 | NUR ---
Pt is alert and oriented with no c/o pain. 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 Pt has no s/s of hypo- or hyperglycemia and consumed 100% of breakfast. AM glucose 198. Insulin administered sub-q to left arm as well as upper rt thigh with 2nd nurse witness, per protocol. Left forarm IV patent at this time. Pt is up ad sunitha in room, able to make needs known. PM shift reports this AM that pt is a possible discharge for today.
[2016-11-15 12:54] VITALS: BP 156/81
--- NOTE | 2016-11-15 13:37 | NUR ---
Per Dr. Hardwick request, spoke with Dr. Shultz who agrees to discharge today with IV antibiotics, to be prescribed by Dr. Hardwick. Paged Dr. Hardwick via his on-call service at 1340 to request new orders.
--- NOTE | 2016-11-15 14:47 | NUR ---
Orders received and processed for discharge. Per pt he drove himself from doctor's office to hospital for direct admit and has POV in front parking lot, will drive himself home. dry starch operator on unit and will correlate with pt. Home health agency is [facility], contact is Bryan at [phone], Pt understands his antibiotics will be PO rather than IV and his pharmacy is [facility] on [address]. Pt has no current c/o pain and IV will continue until discharge. Peripheral IV will be removed at that time. Per Dr. Hardwick, pt is weight-bearing with heel-touch. New orders processed for Augentin and Bactrim DS PO for 14 days (BID and qday, respectively).
[2016-11-15] MEDS ORDERED: AUGMENTIN 875-11 TAB PO (16:15)
[2016-11-15] MEDS ORDERED: BACTRIM DS TABL1 TAB PO (16:17)
[2016-11-15 16:37] VITALS: BP 169/76
--- NOTE | 2016-11-15 17:20 | NUR ---
PATIENT SITTING IN BED. PATIENT REMAINS IN CONTACT ISOLATION WHILE ON UNIT. PATIENT IS BEIN DISCHARGED TO HOME. NO DISTRESS AT THIS TIME.
--- NOTE | 2016-11-15 18:09 | NUR ---
1720: Peripheral IV removed with cath tip intact, bleeding controlled with "bandaid" dressing. 1725: Reviewed discharge instructions with pt, who verbalized understanding and willingness to make follow up appts with Drs. Shultz and Ronen. Meds called to pharmacy of choice ([address]) previously, and pt verbalized understanding of medications, will obtain from pharmacy on his way home, start first dose this evening. Pt will transport self via POV, was taken at 1730 downstairs via wheelchair with discharge papers and personal belongings, with no c/o pain, no bleeding, no obvious distress.
== END 2016-11-15 17:40 | disposition home health service (06) | DRG 264 ==
LOC: D.M2 14:48
PROVIDERS: Orthopaedic Surgery; Student in an Organized Health Care Education/Training Program; ADMIT Family Medicine
PROC: 0HBNXZZ Excision of Left Foot Skin, External Approach (ICD-10-PCS; principal; 2016-11-12 16:00)
DX: E11.52 Type 2 diabetes mellitus with diabetic peripheral angiopathy with gangrene (principal); L03.116 Cellulitis of left lower limb; E11.40 Type 2 diabetes mellitus with diabetic neuropathy, unspecified; E11.22 Type 2 diabetes mellitus with diabetic chronic kidney disease; I12.9 Hypertensive chronic kidney disease with stage 1 through stage 4 chronic kidney disease, or unspecified chronic kidney disease; N18.9 Chronic kidney disease, unspecified; B95.2 Enterococcus as the cause of diseases classified elsewhere; B96.4 Proteus (mirabilis) (morganii) as the cause of diseases classified elsewhere; B95.61 Methicillin susceptible Staphylococcus aureus infection as the cause of diseases classified elsewhere; N28.9 Disorder of kidney and ureter, unspecified; Z86.73 Personal history of transient ischemic attack (TIA), and cerebral infarction without residual deficits; Z87.891 Personal history of nicotine dependence

== ENCOUNTER 2016-12-15 12:25 | Inpatient (IN) | payer MEDICARE, MEDICAID ==
[~2016-12-15 12:25] MED LIST changes: +AUGMENTIN 875-11 TAB PO; +BACTRIM DS TABL1 TAB PO
[2016-12-15 16:24] LABS: HEMATOCRIT 33.6 % (42.0-54.0); HEMOGLOBIN 11.1 g/dL (13.5-17.5); MCH 29.9 pg (26.0-34.0); MCV 90.6 fL (80.0-100.0); MEAN PLATELET VOLUME 10.6 fL (7.4-10.4); PLATELET COUNT 394 10x3/uL (130-400); RBC 3.71 10x6/uL (4.20-6.10); RDW 13.2 % (11.5-14.5); WBC 24.6 10x3/uL (4.8-10.8)
[2016-12-15 16:34] LABS: ALBUMIN 2.8 g/dL (3.4-5.0); ANION GAP 19.1 mmol/L (8-16); BILIRUBIN - TOTAL 0.35 mg/dL (0.2-1.3); CALCIUM 9.2 mg/dL (8.5-10.1); CARBON DIOXIDE 23.4 mmol/L (21.0-32.0); CREATININE - SERUM 4.9 mg/dL (0.6-1.3); POTASSIUM - SERUM 5.5 mmol/L (3.5-5.1); PROTEIN - SERUM 7.5 g/dL (6.4-8.2)
--- NOTE | 2016-12-15 18:10 | NUR ---
ER CALLED REPORT ON PT. PT CURRENTLY STILL IN ER, ROOM SET UP AND WILL CPOC PER ORDERS.
[2016-12-15 18:33] LABS: EOSINOPHILS 2 % (0-7); LYMPHOCYTES 10 % (15-50); MONOCYTES 2 % (2-11); NEUTROPHILS 86 % (40-80)
[2016-12-15 18:34] LABS: PLATELET ESTIMATE NORMAL
[2016-12-15 19:13] VITALS: BP 128/78
--- NOTE | 2016-12-15 19:15 | NUR ---
PT ARRIVED TO ROOM FROM ER. PT A&O AND WE ORIENTED HIM TO ROOM AND OUR UNIT. SHIFT REPORT GIVEN TO NIGHTSHIFT NURSE SANJANA. PT WILL NEED ENTIRE ADMISSION WORK-UP.
[2016-12-15] MEDS ORDERED: DOXYCYCLINE HY100 M2 (19:49)
--- NOTE | 2016-12-15 19:59 | NUR ---
RECEIVED REPORT, WILL ASSUME CARE OF PT, PT SITTING UP EATING, BED IS LOW, SRX2, CALL LIGHT IN REACH, WILL CONTINUE PLAN OF CARE
--- NOTE | 2016-12-15 20:30 | NUR ---
ANSWERED CALL LIGHT ASSISTED PT TO RESTROOM AND BACK TO BED
[2016-12-16] VITALS: BP 118/51
--- NOTE | 2016-12-16 04:02 | NUR ---
PT IS SLEEPING, BED IS LOW, SRX2, CALL LIGHT IN REACH, WILL CONTINUE PLAN OF CARE
[2016-12-16 04:06] LABS: BASOPHILS 0.2 % (0-2); EOSINOPHILS 0.6 % (0-7); HEMATOCRIT 30.9 % (42.0-54.0); HEMOGLOBIN 10.1 g/dL (13.5-17.5); IMMATURE GRANULOCYTES 0.9 % (0-5); LYMPHOCYTES 9.4 % (15-50); MCH 29.6 pg (26.0-34.0); MCHC 32.7 g/dL (31.0-37.0); MCV 90.6 fL (80.0-100.0); MEAN PLATELET VOLUME 10.7 fL (7.4-10.4); NEUTROPHILS 81.9 % (40-80); PLATELET COUNT 393 10x3/uL (130-400); RBC 3.41 10x6/uL (4.20-6.10); RDW 13.4 % (11.5-14.5); WBC 19.3 10x3/uL (4.8-10.8)
[2016-12-16 04:25] LABS: ALBUMIN 2.4 g/dL (3.4-5.0); ANION GAP 14.3 mmol/L (8-16); BILIRUBIN - TOTAL 0.3 mg/dL (0.2-1.3); CALCIUM 8.6 mg/dL (8.5-10.1); CARBON DIOXIDE 23.9 mmol/L (21.0-32.0); CREATININE - SERUM 4.2 mg/dL (0.6-1.3); POTASSIUM - SERUM 4.2 mmol/L (3.5-5.1); PROTEIN - SERUM 7.2 g/dL (6.4-8.2)
--- NOTE | 2016-12-16 04:25 | NUR ---
SUPERVISOR VENDOR QUALITY AT BEDSIDE TO OBTAIN VITALS, CALL LIGHT IN REACH. WILL CONTINUE WITH PLAN OF CARE.
[2016-12-16 04:28] VITALS: BP 116/42
--- NOTE | 2016-12-16 07:00 | NUR ---
RECEIVED REPORT. ASSUMED CARE OF PATIENT. CALL LIGHT WITHIN REACH. DENIES NEEDS. IV FLUIDS INFUSING ORDERED. PATIENT ALERT/ORIENTED, RESP EVEN AND UNLABORED. NO DISTRESS.
[2016-12-16 07:58] VITALS: BP 125/50
[2016-12-16 09:33] VITALS: BMI 35.9
[2016-12-16 11:16] VITALS: BP 152/63
--- NOTE | 2016-12-16 12:02 | NUR ---
FSBS 301. 8 UNITS HUMULIN ADMINISTERED ORDERED AT THIS TIME. NO DISTRESS.
[2016-12-16 15:41] VITALS: BP 151/64
--- NOTE | 2016-12-16 16:30 | NUR ---
FSBS 304. 8 UNITS HUMULIN ADMINISTERED PER SLIDING SCALE.
[2016-12-16 19:00] VITALS: BP 145/56
--- NOTE | 2016-12-16 19:19 | NUR ---
RECEIVED REPORT, WILL ASSUME CARE OF PT, PT WATCHING TV, DENIES ANY NEEDS, BED IS LOW, SRX2, CALL LIGHT IN REACH, WILL CONTINUE TO MONITOR
[2016-12-17] VITALS: BP 119/42
--- NOTE | 2016-12-17 02:43 | NUR ---
ASSESSMENT COMPLETE, SEE FLOWSHEET, PT SLEEPING, NO DISTRESS NOTICED, BED IS LOW, SRX2, CALL LIGHT IN REACH, WILL CONTINUE PLAN OF CARE
--- NOTE | 2016-12-17 03:11 | NUR ---
PT LYING IN BED ON HIS RIGHT SIDE, RESPIRATIONS EVEN AND UNLABORED. CONTINUE TO MONITOR PT CLOSELY. BED LOW, CALL LIGHT IN REACH, SIDE RAILS X 2, HOB FLAT AT THIS TIME.
[2016-12-17 04:00] VITALS: BP 129/60
[2016-12-17 05:07] LABS: BASOPHILS 0.2 % (0-2); EOSINOPHILS 1.8 % (0-7); HEMATOCRIT 31.2 % (42.0-54.0); HEMOGLOBIN 10.1 g/dL (13.5-17.5); IMMATURE GRANULOCYTES 1.1 % (0-5); LYMPHOCYTES 9.2 % (15-50); MCH 29.4 pg (26.0-34.0); MCHC 32.4 g/dL (31.0-37.0); MEAN PLATELET VOLUME 10.5 fL (7.4-10.4); NEUTROPHILS 80.7 % (40-80); PLATELET COUNT 423 10x3/uL (130-400); RBC 3.43 10x6/uL (4.20-6.10); RDW 13.2 % (11.5-14.5); WBC 18.1 10x3/uL (4.8-10.8)
[2016-12-17 05:23] LABS: ANION GAP 13.3 mmol/L (8-16); CALCIUM 8.2 mg/dL (8.5-10.1); CARBON DIOXIDE 23.6 mmol/L (21.0-32.0); CREATININE - SERUM 3.2 mg/dL (0.6-1.3); GENTAMICIN - TROUGH 0.3 ug/mL (0.5-2.0); MAGNESIUM - SERUM 2.4 mg/dL (1.8-2.4)
[2016-12-17 05:36] LABS: POTASSIUM - SERUM 4.9 mmol/L (3.5-5.1)
--- NOTE | 2016-12-17 06:17 | NUR ---
UNABLE TO GIVE GENTAMICIN AT THIS TIME, WAITING FOR PHARMACY TO BRING
[2016-12-17 07:51] VITALS: BP 136/57
[2016-12-17 15:32] VITALS: BP 160/61
--- NOTE | 2016-12-17 17:14 | NUR ---
ALERT AND ORIENTED X4. RESTING IN BED. CONSENTS FOR PROCEDURE SIGNED ON CHART. DENIES SOB OR PAIN. DRESSING CHANGED BY DOCTOR. CONTINUE PLAN OF CARE AND SAFETY PRECAUTIONS.
--- NOTE | 2016-12-17 19:17 | NUR ---
PT IS LYING IN BED ON LEFT SIDE, BED IN LOW POSITION, CALL LIGHT IN REACH PT STATED NO NEEDS AT THIS TIME, CONTINUE WITH PLAN OF CARE
[2016-12-17 20:00] VITALS: BP 161/63
--- NOTE | 2016-12-18 02:07 | NUR ---
CALL LIGHT IN REACH, WILL CONTINUE WITH PLAN OF CARE.
[2016-12-18 04:00] VITALS: BP 115/56
--- NOTE | 2016-12-18 04:13 | NUR ---
PT IS LYING ON RT SIDE, ASKED TO BE COVERED UP, BED IN LOW POSITION NO OTHER NEEDS VOICED AT THIS TIME
[2016-12-18 04:25] LABS: BASOPHILS 0.2 % (0-2); EOSINOPHILS 1.3 % (0-7); HEMATOCRIT 31.2 % (42.0-54.0); HEMOGLOBIN 10.1 g/dL (13.5-17.5); IMMATURE GRANULOCYTES 1.2 % (0-5); LYMPHOCYTES 9.9 % (15-50); MCH 29.5 pg (26.0-34.0); MCHC 32.4 g/dL (31.0-37.0); MCV 91.2 fL (80.0-100.0); MEAN PLATELET VOLUME 10.4 fL (7.4-10.4); MONOCYTES 5.8 % (2-11); NEUTROPHILS 81.6 % (40-80); PLATELET COUNT 436 10x3/uL (130-400); RBC 3.42 10x6/uL (4.20-6.10); WBC 19.4 10x3/uL (4.8-10.8)
[2016-12-18 04:56] LABS: ALBUMIN 2.1 g/dL (3.4-5.0); ANION GAP 12.3 mmol/L (8-16); BILIRUBIN - TOTAL 0.27 mg/dL (0.2-1.3); CALCIUM 8.3 mg/dL (8.5-10.1); CARBON DIOXIDE 24.1 mmol/L (21.0-32.0); CREATININE - SERUM 2.8 mg/dL (0.6-1.3); GENTAMICIN - TROUGH 1.6 ug/mL (0.5-2.0); MAGNESIUM - SERUM 2.2 mg/dL (1.8-2.4); POTASSIUM - SERUM 4.4 mmol/L (3.5-5.1); VANCOMYCIN - RANDOM 22.3 ug/mL (10.0-20.0)
--- NOTE | 2016-12-18 07:15 | NUR ---
RECIEVED REPORT ON PATIENT, PATIENT IS ALERT AND ORIENTED AT THIS TIME. PATIENT HAS A L AC IV WITH NS INFUSING AT 100ML/HR. PATIENT DENIES ANY NEEDS OR PAIN AT THIS TIME. BED LOW AND LOCKED. CALL LIGHT IN REACH. CPOC
[2016-12-18 08:00] VITALS: BP 146/55
--- NOTE | 2016-12-18 08:25 | NUR ---
PATIENT PREOP AND READY FOR SURGERY. CPOC
--- NOTE | 2016-12-18 08:45 | NUR ---
PATIENT GONE FOR SURGERY. CPOC
--- NOTE | 2016-12-18 11:50 | NUR ---
PATIENT BACK TO ROOM FROM SURGERY, PATIENT IS ALERT AND ORIENTED. VS STABLE. DRESSING APPLIED TO L FOOT. PATIENT DENIES ANY NEEDS. CPOC
[2016-12-18 11:52] VITALS: BP 137/62
[2016-12-18 12:00] VITALS: BP 137/62
--- NOTE | 2016-12-18 12:57 | NUR ---
Nutrition Consult: Consult received for DM education. Pt was in surgery at the time of RD visit. Written information was left in pt room and RD will attempt edu again at a later time. Pt is eating 96% meal avg on a diabetic diet. +BM 12/16/16. Wt stable. Meds and labs reviewed. Rec resuming diabetic diet when medically feasible. RD following.
--- NOTE | 2016-12-18 14:43 | NUR ---
SPOKE WITH ISSA AT DR JOHN OFFICE, PATIENT IS REQUESTING PAIN MEDICATION AND THERE IS NOT ANY ORDERED. WAITING FOR CALL BACK. CPOC
--- NOTE | 2016-12-18 15:00 | NUR ---
SPOKE WITH DR HOPE REGARDING PATIENT FOOT IS BLEEDING THROUGH DRESSING, HE STATED TO REINFORCE DRESSING WITH ABD PAD, AND CONT TO MONITOR. HE EXPECTS BLEEDING. FOOT ELEVATED AT THIS TIME. CPOC
[2016-12-18 16:00] VITALS: BP 123/63
--- NOTE | 2016-12-18 16:34 | NUR ---
PATIENT BLOOD SUGAR TOO HIGH TO READ ON GLUCOMETER, ORDERED A GLUCOSE FOR LAB TO CHECK. CPOC
--- NOTE | 2016-12-18 16:35 | NUR ---
Patient Name: STEW AARON Admission Status: ER Accout number: [id number] Admission Date: 12-15-2016 : 1945 Admission Diagnosis:CELLULITIS OF LEFT LOWER LIMB Attending: VERONICA JOHN Current LOS: 3 Anticipated DC Date: Planned Disposition: Chcf Facility Primary Insurance: [facility] PLANNED EXTERNAL PROVIDER: [facility], MEDICARE REHAB BED Discharge Planning Comments: * Is the patient Alert and Oriented? Yes 0 * How many steps to enter\\exit or inside your home? 3 0 * PCP DR. JOHN 0 * Pharmacy [facility] [address] * Preadmission Environment Home Alone 0 * ADLs Independent 0 * Equipment Cane Other Shower Chair Walker 0 * Other Equipment [facility] [employer] AFO BOOT 0 * List name and contact numbers for known caregivers / representatives who currently or will assist patient after discharge: JULIETA CHAPA, BROTHER IN LAW, 0 * Community resources currently utilized Home Health 0 * Please name any agencies selected above. [facility] 0 * Additional services required to return to the preadmission environment? Yes * Can the patient safely return to the preadmission environment? Yes 0 * Has this patient been hospitalized within the prior 30 days at any hospital? Yes 0 CM RECEIVED ORDER FOR REHAB PLACEMENT. CM MET WITH PT IN ROOM TO DISCUSS DISCHARGE PLANNING AND NEEDS. PT REPORTS LIVING AT HOME INDEPENDENTLY AND ALONE. PT HAS CANE, SHOWER CHAIR, WALKER AND THAT "WORTHLESS BOOT" (AFO BOOT) FROM [facility]. PT HAS HOME HEALTH WITH [facility]. CM DISCUSSED AVAILABILITY OF HOME HEALTH, REHAB SERVICES AND MEDICAL EQUIPMENT. PT IS AGREEABLE WITH [facility]ENTIARY REHAB, CHOICE SIGNED FOR [facility]. IMPORTANT MESSAGE FROM MEDICARE PROVIDED AND EXPLAINED. CM CALLED [facility], CLINICAL LIAISON FOR [facility], , ASKED FOR ASSESSMENT FOR REHAB ADMISSION. CM FAXED REFERRAL TO [facility] VIA [facility] AT [phone]. Email Producer: Shar Osborn
--- NOTE | 2016-12-18 17:15 | NUR ---
20 UNITS OF HUMULIN GIVEN PER DR JOHN FOR BS OF 432. ALSO ORDERED TO INCREASE LANTUS TO 75UNITS QHS. CPOC
--- NOTE | 2016-12-18 17:45 | NUR ---
PATIENT EATING DINNER, DENIES ANY NEEDS OR PAIN. BED IS LOW AND LOCKED. CALL LIGHT IN REACH. CPOC
[2016-12-18 19:00] VITALS: BP 179/76
--- NOTE | 2016-12-19 01:23 | NUR ---
PT IN BED RESTING. EVEN AND UNLABORED RESPIRATIONS NOTED.
--- NOTE | 2016-12-19 03:40 | NUR ---
CALL LIGHT IN REACH, WILL CONTINUE WITH PLAN OF CARE.
[2016-12-19 04:00] VITALS: BP 105/37
[2016-12-19 06:10] LABS: ANION GAP 13.5 mmol/L (8-16); BILIRUBIN - TOTAL 0.33 mg/dL (0.2-1.3); CALCIUM 7.8 mg/dL (8.5-10.1); POTASSIUM - SERUM 4.5 mmol/L (3.5-5.1); PROTEIN - SERUM 6.8 g/dL (6.4-8.2); VANCOMYCIN - TROUGH 27.7 ug/mL (10.0-20.0)
[2016-12-19 06:21] LABS: BASOPHILS 0.2 % (0-2); EOSINOPHILS 0.7 % (0-7); HEMATOCRIT 30.2 % (42.0-54.0); HEMOGLOBIN 9.5 g/dL (13.5-17.5); IMMATURE GRANULOCYTES 0.8 % (0-5); MCHC 31.5 g/dL (31.0-37.0); MCV 92.1 fL (80.0-100.0); MEAN PLATELET VOLUME 10.6 fL (7.4-10.4); MONOCYTES 5.1 % (2-11); NEUTROPHILS 84.2 % (40-80); PLATELET COUNT 403 10x3/uL (130-400); RBC 3.28 10x6/uL (4.20-6.10); WBC 21.8 10x3/uL (4.8-10.8)
--- NOTE | 2016-12-19 07:00 | NUR ---
RECIEVED REPORT ON PATIENT, PATIENT IS ALERT AND ORIENTED AT THIS TIME. PATIENT HAD LEFT FOOT DANGLING AT BEDSIDE, INFORMED PATIENT HE HAS TO KEEP HIS FOOT ELEVATED ABOVE HIS HEART. ELEVATED PATIENTS FOOT. DRESSING IS CLEAN AT THIS TIME. PATIENT HAS A L AC IV WITH NS INFUSING AT 100ML/HR. PATIENT C/O OF PAIN 5/10. WILL GET PATIENT PAIN MEDICATION. DENIES ANY OTHER NEEDS. CPOC
--- NOTE | 2016-12-19 07:21 | NUR ---
NORCO GIVEN FOR PAIN 5/10 IN FOOT, DULL PAIN THAT COMES AND GOES. WILL CONT TO MONITOR. CPOC
[2016-12-19 08:00] VITALS: BP 130/45
--- NOTE | 2016-12-19 09:00 | NUR ---
PATIENT RESTING IN BED, DENIES ANY NEEDS AT THIS TIME. WILL CONT TO MONITOR PATIENT. CPOC
--- NOTE | 2016-12-19 11:08 | NUR ---
FSBS 362. 10 UNITS OF HUMULIN GIVEN. CPOC
[2016-12-19 12:00] VITALS: BP 155/57
--- NOTE | 2016-12-19 13:00 | NUR ---
PATIENT RESTING, EYES CLOSED. AROUSES TO VOICE. PATIENT DENIES ANY NEEDS. CPOC
[2016-12-19 15:39] VITALS: BP 170/60
--- NOTE | 2016-12-19 16:58 | NUR ---
PATIENT FSBS WAS 415, DR JOHN NOTIFIED AND ORDERED TO GIVE 20UNITS. AND INCREASE LANTUS TO 80 UNITS QHS. WILL CONT TO MONITOR PATIENT. CPOC
--- NOTE | 2016-12-19 17:24 | NUR ---
OT NOTE: PT COMPLETED BUE AROM EXS FOR INCREASED I WITH BED MOB. THANK YOU, SOFIA DAVIS/Nakia
--- NOTE | 2016-12-19 18:29 | NUR ---
PATIENT EATING DINNER, DENIES ANY NEEDS. CPOC. BED LOW AND LOCKED CALL LIGHT IN REACH
--- NOTE | 2016-12-19 18:30 | NUR ---
PATIENT RESTING, AROUSES TO VOICE DENIES ANY NEEDS. CPOC
[2016-12-19 19:00] VITALS: BP 162/64
--- NOTE | 2016-12-19 19:31 | NUR ---
PT IN BED WATCHING TELEVISION. DENIES NEEDS AT THIS TIME.
[2016-12-20] VITALS: BP 125/38
--- NOTE | 2016-12-20 01:46 | NUR ---
PT RESTING QUEITLY IN BED. WILL CONTINUE WITH CARE PLAN. BED IN LOW POSITION, CALL LIGHT WITHIN REACH.
[2016-12-20 04:00] VITALS: BP 132/61
[2016-12-20 08:00] VITALS: BP 125/48
--- NOTE | 2016-12-20 08:10 | NUR ---
AM ROUNDS - PT IS AWAKE AND IN BED AT THIS TIME. NON SKID SOCKS ON RIGHT FOOT. DRESSING TO LEFT FOOT. IV TO LEFT AC, NS AT 100CC/HR. IV IS OFF AT THIS TIME DO TO IV PUMP ALARMING OCCLUSION. WILL REASSESS IV. BED AT LOWEST POSITION. CALL COKER IN USE/REACH. SIDE RAILS UP X2. NO NEEDS AT THSI TIME. WILL CONTINUE TO MONITOR.
[2016-12-20 09:20] LABS: BASOPHILS 0.1 % (0-2); EOSINOPHILS 0.8 % (0-7); HEMATOCRIT 29.3 % (42.0-54.0); HEMOGLOBIN 9.3 g/dL (13.5-17.5); IMMATURE GRANULOCYTES 0.7 % (0-5); LYMPHOCYTES 6.2 % (15-50); MCH 29.2 pg (26.0-34.0); MCHC 31.7 g/dL (31.0-37.0); MCV 91.8 fL (80.0-100.0); MEAN PLATELET VOLUME 9.8 fL (7.4-10.4); MONOCYTES 5.6 % (2-11); NEUTROPHILS 86.6 % (40-80); PLATELET COUNT 376 10x3/uL (130-400); RBC 3.19 10x6/uL (4.20-6.10); RDW 13.1 % (11.5-14.5)
[2016-12-20 09:28] LABS: ANION GAP 12.9 mmol/L (8-16); CALCIUM 7.7 mg/dL (8.5-10.1); CARBON DIOXIDE 22.4 mmol/L (21.0-32.0); CREATININE - SERUM 2.8 mg/dL (0.6-1.3); POTASSIUM - SERUM 4.3 mmol/L (3.5-5.1); VANCOMYCIN - RANDOM 18.1 ug/mL (10.0-20.0)
[2016-12-20 12:00] VITALS: BP 134/52
--- NOTE | 2016-12-20 12:53 | NUR ---
PATIENT GIVEN NORCO FOR PAIN 5/10 IN L FOOT. DENIES ANY FURTHER NEEDS. CPOC
--- NOTE | 2016-12-20 14:58 | NUR ---
PT IN BED WITH NO NEEDS AT THIS TIME. WILL CONTINUE TO MONITOR
[2016-12-20 16:39] VITALS: BP 131/53
[2016-12-20 20:00] VITALS: BP 140/48
--- NOTE | 2016-12-20 23:58 | NUR ---
PT RESTING WELL WITHOUT C/O OR DISTRESS NOTED. FEW NEEDS VOICED. CALL LIGHT WITHIN REACH.
[2016-12-21 04:00] VITALS: BP 130/59
[2016-12-21 05:13] LABS: BASOPHILS 0.2 % (0-2); EOSINOPHILS 1.4 % (0-7); HEMOGLOBIN 9.2 g/dL (13.5-17.5); IMMATURE GRANULOCYTES 0.4 % (0-5); LYMPHOCYTES 6.9 % (15-50); MCH 29.1 pg (26.0-34.0); MCHC 31.7 g/dL (31.0-37.0); MCV 91.8 fL (80.0-100.0); MEAN PLATELET VOLUME 10.2 fL (7.4-10.4); MONOCYTES 6.4 % (2-11); NEUTROPHILS 84.7 % (40-80); PLATELET COUNT 386 10x3/uL (130-400); RBC 3.16 10x6/uL (4.20-6.10); RDW 12.8 % (11.5-14.5); WBC 18.4 10x3/uL (4.8-10.8)
[2016-12-21 05:18] LABS: ANION GAP 15.5 mmol/L (8-16); BILIRUBIN - TOTAL 0.24 mg/dL (0.2-1.3); CALCIUM 7.9 mg/dL (8.5-10.1); CARBON DIOXIDE 23.8 mmol/L (21.0-32.0); CREATININE - SERUM 2.3 mg/dL (0.6-1.3); POTASSIUM - SERUM 4.3 mmol/L (3.5-5.1); PROTEIN - SERUM 6.4 g/dL (6.4-8.2)
--- NOTE | 2016-12-21 06:06 | NUR ---
WOUND DRESSING CHANGED ON LEFT FOOT.
--- NOTE | 2016-12-21 07:19 | NUR ---
AM ROUNDS - PT IN BED AND APPEARS TO BE SLEEPING WITH EQUAL AND NON LABORED BREATHING. IV TO LEFT AC, SL. PT REFUSES IV FLUIDS. DRESSING TO LEFT FOOT. BED AT LOWEST POSITION. SIDE RAILS UP X2. CALL COKER IN USE/REACH. WILL CONTINUE TO MONITOR
[2016-12-21 09:09] VITALS: BP 128/65
[2016-12-21 12:42] VITALS: BP 127/42
--- NOTE | 2016-12-21 14:50 | NUR ---
PT IN BED AND APPEARS TO BE SLEEPING AT THIS TIME WITH EQUAL AND NON LABORED BREATHING. IV MED CURRENTLY RUNNING. NON SKID SOCK ON. BED AT LOWEST POSITION. CALL COKER IN USE/REACH. SIDE RAILS UP X2. WILL CONTINUE TO MONITOR
[2016-12-21 16:39] VITALS: BP 158/45
[2016-12-21 19:00] VITALS: BP 139/41
--- NOTE | 2016-12-21 19:38 | NUR ---
PT IN ROOM ASLEEP. RESPIRATIONS EVEN AND UNLABORED. PT HAS NO S/S OF DISTRESS. BED LOW AND CALL LIGHT IN REACH WILL CPOC
[2016-12-22] VITALS: BP 108/36; BP 142/62
--- NOTE | 2016-12-22 02:43 | NUR ---
PT RESTING IN BED. ZOSYN STILL INFUSING AAT 12.5. PT DENIES ANY NEEDS AT THIS TIME. NO S/S OF DISTRESS. WILL CPOC
[2016-12-22 04:38] LABS: BASOPHILS 0.2 % (0-2); EOSINOPHILS 2.1 % (0-7); HEMATOCRIT 29.9 % (42.0-54.0); HEMOGLOBIN 9.7 g/dL (13.5-17.5); IMMATURE GRANULOCYTES 0.5 % (0-5); LYMPHOCYTES 8.7 % (15-50); MCH 29.5 pg (26.0-34.0); MCHC 32.4 g/dL (31.0-37.0); MCV 90.9 fL (80.0-100.0); MEAN PLATELET VOLUME 10.2 fL (7.4-10.4); MONOCYTES 5.3 % (2-11); NEUTROPHILS 83.2 % (40-80); PLATELET COUNT 439 10x3/uL (130-400); RBC 3.29 10x6/uL (4.20-6.10); RDW 12.9 % (11.5-14.5); WBC 16.5 10x3/uL (4.8-10.8)
[2016-12-22 04:58] LABS: ANION GAP 11.9 mmol/L (8-16); BILIRUBIN - TOTAL 0.3 mg/dL (0.2-1.3); CALCIUM 8.4 mg/dL (8.5-10.1); CARBON DIOXIDE 25.8 mmol/L (21.0-32.0); CREATININE - SERUM 2.4 mg/dL (0.6-1.3); POTASSIUM - SERUM 3.7 mmol/L (3.5-5.1); PROTEIN - SERUM 7.1 g/dL (6.4-8.2)
--- NOTE | 2016-12-22 07:20 | NUR ---
REPORT RECIEVED. RR EVEN AND UNLABORED. PT IS REPORTING SORENESS OF THE LEFT FOOT. WILL GIVE PRN PAIN MED WITH MORNING MEDS. PT RESTING QUIETLY, WILL CTM.
[2016-12-22 08:00] VITALS: BP 141/59
[2016-12-22 12:00] VITALS: BP 117/48
--- NOTE | 2016-12-22 13:19 | NUR ---
Nutrition Follow Up: Pt was asleep at the time of RD visit. Interview deferred. Noted pt to have I&D 12/23/16. Pt is eating 86% meal avg on a renal ADA diet. Wt loss noted. +BM 12/20/16. Labs reviewed - Glucose elevated. Meds noted. Rec continue current diet. Will send Pasquale BID to promote wound healing. RD following.
--- NOTE | 2016-12-22 15:00 | NUR ---
PTS IV LEAKING. RESITED 22 G IV TO RIGHT FA X2 STICK. PTS ABX STARTED. WILL CTM.
[2016-12-22 16:00] VITALS: BP 154/57
--- NOTE | 2016-12-22 18:22 | NUR ---
PT RESTING QUIELTY, RR EVEN AND UNLABORED. PT DENIES NEEDS AT THIS TIME. WILL GIVE REPORT ON PT CONDTION FOR THE DAY.
--- NOTE | 2016-12-22 19:30 | NUR ---
PT IN BED RESTING QUIETLY. BREATHING EVEN AND UNLABORED. IV SALINE LOCKED AT THIS TIME. PT DENIES ANY PAIN OR NEEDS AT THIS TIME. BED IN LOW POSITION, CALL LIGHT WITHIN REACH.
[2016-12-22 20:45] VITALS: BP 144/45
--- NOTE | 2016-12-22 23:27 | NUR ---
PT IN BED RESTING QUEITLY. IV ZOSYN RESTARTED AT 12.5ML/HR TO INFUSE OVER 4 HRS. DENIES ANY PAIN OR NEEDS AT THIS TIME.
--- NOTE | 2016-12-23 00:18 | NUR ---
IV RESITED TO LEFT ARM. 22G. ONE ATTEMPT. ZOSYN INFUSING AT 12.5ML/HR PER ORDER. DENIES ANY PAIN OR NEEDS AT THIS TIME. BED IN LOW POSITION, CALL LIGHT WITHIN REACH.
[2016-12-23 00:37] VITALS: BP 144/39
--- NOTE | 2016-12-23 02:51 | NUR ---
PT IN BED RESTING QUIETLY. DENIES ANY NEEDS AT THIS TIME. BED IN LOW POSITION, CALL LIGHT WITHIN REACH.
[2016-12-23 04:21] LABS: BASOPHILS 0.2 % (0-2); EOSINOPHILS 0.9 % (0-7); HEMATOCRIT 29.2 % (42.0-54.0); HEMOGLOBIN 9.4 g/dL (13.5-17.5); IMMATURE GRANULOCYTES 0.4 % (0-5); LYMPHOCYTES 9.5 % (15-50); MCH 29.1 pg (26.0-34.0); MCHC 32.2 g/dL (31.0-37.0); MCV 90.4 fL (80.0-100.0); MEAN PLATELET VOLUME 10.4 fL (7.4-10.4); MONOCYTES 5.6 % (2-11); NEUTROPHILS 83.4 % (40-80); PLATELET COUNT 444 10x3/uL (130-400); RBC 3.23 10x6/uL (4.20-6.10); RDW 12.9 % (11.5-14.5); WBC 17.7 10x3/uL (4.8-10.8)
[2016-12-23 04:38] VITALS: BP 150/57
[2016-12-23 04:43] LABS: ANION GAP 13.4 mmol/L (8-16); BILIRUBIN - TOTAL 0.3 mg/dL (0.2-1.3); CALCIUM 8.3 mg/dL (8.5-10.1); CARBON DIOXIDE 24.3 mmol/L (21.0-32.0); CREATININE - SERUM 2.6 mg/dL (0.6-1.3); POTASSIUM - SERUM 3.7 mmol/L (3.5-5.1); PROTEIN - SERUM 7.1 g/dL (6.4-8.2)
[2016-12-23 05:40] LABS: ERYTHROCYTE SEDIMENTATION RATE 135 mm/hr (0-20)
--- NOTE | 2016-12-23 06:09 | NUR ---
PT GIVEN 2 UNITS INSULIN PER SLIDING SCALE FOR FSBS OF 183. ZOSYN STARTED AT 12.5 ML/HR TO INFUSE OVER 4 HOURS PER ORDER. PT IN BED RESTING QUEITLY. DENIES ANY PAIN OR NEEDS AT THIS TIME. BED IN LOW POSITION, CALL LIGHT WITHIN REACH.
--- NOTE | 2016-12-23 07:00 | NUR ---
REPORT RECIEVED FROM OFF GOING NURSE. SEE ASSESSMENT FLOW SHEET FOR MORE DETAILS. PT RESTING IN BED. BREATHING NORMALLY AND UNLABORED. DENIES PAIN VERBALLY. 0 S/SX OF DISTRESS/DISCOMFORT NOTED. DRESSING TO LEFT FOOT C/D/I. PT MISSING THE TIP OF HIS LEFT POINTER FINGER. 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 REMAINS NPO FOR DEBRIDMENT OF LEFT FOOT. WILL CONT POC.
[2016-12-23 07:38] VITALS: BP 128/49
[2016-12-23 11:47] VITALS: BP 163/75
--- NOTE | 2016-12-23 12:00 | NUR ---
PT RESTING IN BED WATCHINGTV. DENIES PAIN AT THIS TIME. BREATHING NORMAL AND UNLABORED. CALL LIGHT IN REACH. WILL CONT POC.
--- NOTE | 2016-12-23 13:17 | NUR ---
Patient Name: STEW AARON Admission Status: ER Accout number: [id number] Admission Date: 12-15-2016 : 1945 Admission Diagnosis:CELLULITIS OF LEFT LOWER LIMB Attending: VERONICA JOHN Current LOS: 8 Anticipated DC Date: Planned Disposition: Correction Facility Primary Insurance: [facility] PLANNED EXTERNAL PROVIDER: [facility] DCP FOLLOW UP Comments: CM RECEIVED DISCHARGE PLANNING ORDER, NOTIFIED [facility], , CLINICAL LIAISON FOR THE [facility], OF PENDING DISCHARGE IN NEXT COUPLE OF DAYS; CM FAXED UPDATE TO THE [facility] VIA [facility] AT [phone]. PT HAS MANAGED MEDICARE, THE [facility] TO SUBMIT FOR REHAB AUTHORIZATION; CM WAITING INSURANCE AUTHORIZATION FOR REHAB AT [facility]. Chief Chemist: Shar Osborn
--- NOTE | 2016-12-23 16:00 | NUR ---
AT BED SIDE FOR DRESSING CHANGE. DRESSING C/D/I. WILL CONT POC
[2016-12-23 16:24] VITALS: BP 184/80
--- NOTE | 2016-12-23 17:02 | NUR ---
REPORT CALLED INTO [facility]A IN REHAB. IV DC'D WITH CATHETER TIP INTACT. PT AWARE OF GOING DOWN FOR REHAB. PT BREATHING NORMAL AND UNLABORED. TRANSFERED VIA BED.
--- NOTE | 2016-12-23 17:50 | NUR ---
REQUESTED PAIN PILL FOR PAIN TO LEFT FOOT. DRESSING C/D/I. BREATHING NORMAL AND UNLABORED. CALL LIGHT IN REACH. WILL CONT POC
--- NOTE | 2016-12-23 19:43 | NUR ---
PT IN BED RESTING QUEITLY. BED RAILS UP X2. DENIES ANY PAIN OR NEEDS AT THIS TIME. ZOSYN INFUSING AT 12.5 ML/HR PER ORDER. BED IN LOW POSITION, CALL LIGHT WITHIN REACH.
[2016-12-23 20:46] VITALS: BP 167/52
--- NOTE | 2016-12-23 22:34 | NUR ---
WENT IN PTS ROOM TO START ZOSYN IV INFUSION. NOTICED THAT PREVIOUS BAG HAD NOT RUN DUE TO BEING CLAMPED. UNCLAMPED AND STARTED AT 12.5ML/HR TO INFUSE OVER 4 HRS PER ORDER. PT DENIES ANY NEEDS AT THIS TIME. BED IN LOW POSITION, CALL LIGHT WITHIN REACH.
[2016-12-24 00:46] VITALS: BP 126/54
--- NOTE | 2016-12-24 00:56 | NUR ---
PT IN BED RESTING QUIETLY. DENIES ANY PAIN OR NEEDS AT THIS TIME. BED RAILS UP X2. BED IN LOW POSITION, CALL LIGHT WITHIN REACH.
[2016-12-24 04:25] VITALS: BP 131/57
[2016-12-24 05:09] LABS: BASOPHILS 0.2 % (0-2); EOSINOPHILS 1.3 % (0-7); HEMATOCRIT 29.4 % (42.0-54.0); HEMOGLOBIN 9.4 g/dL (13.5-17.5); IMMATURE GRANULOCYTES 0.3 % (0-5); LYMPHOCYTES 8.3 % (15-50); MCH 29.1 pg (26.0-34.0); MEAN PLATELET VOLUME 10.1 fL (7.4-10.4); MONOCYTES 7.5 % (2-11); NEUTROPHILS 82.4 % (40-80); PLATELET COUNT 423 10x3/uL (130-400); RBC 3.23 10x6/uL (4.20-6.10); RDW 13.1 % (11.5-14.5); WBC 16.2 10x3/uL (4.8-10.8)
[2016-12-24 05:25] LABS: ALBUMIN 1.9 g/dL (3.4-5.0); ANION GAP 12.7 mmol/L (8-16); BILIRUBIN - TOTAL 0.3 mg/dL (0.2-1.3); CALCIUM 8.7 mg/dL (8.5-10.1); CARBON DIOXIDE 26.2 mmol/L (21.0-32.0); CREATININE - SERUM 2.2 mg/dL (0.6-1.3); POTASSIUM - SERUM 3.9 mmol/L (3.5-5.1); PROTEIN - SERUM 7.2 g/dL (6.4-8.2)
--- NOTE | 2016-12-24 06:30 | NUR ---
PT IN BED RESTING QUIETLY. 4 UNITS INSULIN GIVEN FOR FSBS OF 238 PER SLIDING SCALE. ZOSYN IV INFUSION STARTED AT 12.5 ML/HR TO INFUSE OVER 4 HRS PER ORDER. DENIES ANY NEEDS AT THIS TIME. BED RAILS UP X2. BED IN LOW POSITION, CALL LIGHT WITHIN REACH.
--- NOTE | 2016-12-24 07:00 | NUR ---
REPORT RECEIEVED FROM OFF GOING NURSE. PT IN ROOM REMAINS NPO. SEE ASSESSMENT FLOW SHEET. PREOP MEDICATION GIVEN AND BEET END SUPERVISOR AT BED SIDE. PREOP CHECK LIST COMPLETED. LEFT VIA BED TO OR FOR LEFT FOOT DEBRIDMENT. BREATHING NORMAL AND UNLABORED. 0 S/SX OF DISTRESS/DISCOMFORT NOTED.
[2016-12-24 08:04] VITALS: BP 141/55
--- NOTE | 2016-12-24 10:55 | NUR ---
REPORT RECEIEVED FROM AUBREY FROM RECOVERY. PT BACK IN ROOM VIA BED. C/O LEFT FOOT PAIN. PRN DILAUDID GIVEN PER ORERS. NO S/SX OF ASE NOTED. VSS. DRESSING TO LEFT HEEL C/D/I. BREATHING NORMAL AND UNLABORED. CALL LIGHT IN REACH. WILL CONT POC
[2016-12-24 11:37] VITALS: BP 148/68
--- NOTE | 2016-12-24 12:00 | NUR ---
PT RESTING IN BED WATCHING TV. DENIES PAIN. LEFT FOOT ELEVATED ON PILLOWS. DRESSING REMAINS C/D/I. BREATHING NORMAL AND UNLABORED. CALL LIGHT IN REACH. WILL CONT POC.
[2016-12-24 15:31] VITALS: BP 182/76
--- NOTE | 2016-12-24 15:42 | NUR ---
IN BED WATCHING TV. DENIES PAIN. BREATHING NORMAL AND UNLABORED. LEFT FOOT ELEVATED. DRESSING C/D/I. CALL LIGHT IN REACH. WILL CONT POC
--- NOTE | 2016-12-24 16:12 | NUR ---
BP 193/78, PULSE 101. DR JOHN NOTIFED. DR JOHN STATED HE WILL ADD MEDICATIONS FROM HIS OFFICE. WAITING FOR NEW ORDERS.
--- NOTE | 2016-12-24 16:13 | NUR ---
PT RESTING WITH EYES CLOSED. DENIES PAIN.
--- NOTE | 2016-12-24 16:30 | NUR ---
Patient Name: STEW AARON Encounter No: [id number] : 1945 Primary Insurance: [facility] Anticipated DC Date: Planned Disposition: Retirement Facility External Planned Provider: [facility], MEDICARE REHAB BED DCP follow-up note: CM RECEIVED ORDER TO CONTACT DR. HOPE TO FACILITATE DISCHARGE PLANNING. KAYLA CALLED DR. HOPE IN CLINIC, . DR. HOPE ADVISED THAT HE PLANS TO CLOSE PT'S WOUND NEXT WEEK ON THURSDAY OR THURSDAY OF NEXT WEEK DEPENDING ON OR AVAILABILITY AND HAS NO PLAN FOR WOUND VAC. DR. HOPE ALSO ADVISED THAT PT'S CULTURE HAS GROWN SOMETHING ELSE AND PT HAS HAD A CHANGE IN ANTIBIOTIC. CM CALLED DR. JOHN[facility]S CLIN[facility], NOTIFIED DR. JOHN'S NURSE OF ABOVE. CM RECEIVED A CALL A SHORT TIME LATER FROM NURSE TARANGO OF DR. JOHN'S OFFICE; DR. JOHN DIRECTED CM TO HAVE DR. HOPE CALL HIM AT CLINIC. CM CALLED DR. HOPE'S CLINIC, LEFT REQUEST AND DR. JOHN'S NUMBER FOR DR. HOPE TO CALL. CM NOTIFIED NAY, , CLINICAL LIAISON FOR THE [facility], OF PENDING DISCHARGE IN NEXT WEEK. CM FAX DISCHARGE WHEN CLOSER TO DISCHARGE AND NEEDS ARE KNOWN. PT HAS MANAGED MEDICARE, THE [facility] WILL HAVE TO SUBMIT FOR FOR REHAB AUTHORIZATION WHICH IS TYPICALLY GOOD FOR 48 HOURS ONCE RECEIVED. Cost Accounting Clerk: Shar Osborn
--- NOTE | 2016-12-24 17:17 | NUR ---
R/T HYPERTENSION. DR JOHN PRESCRIBED SCHEDUALED COREG 6.25 BID. TAKEN FIRST DOSE
--- NOTE | 2016-12-24 18:29 | NUR ---
BP 157/69
[2016-12-24 19:00] VITALS: BP 147/61
--- NOTE | 2016-12-24 20:16 | NUR ---
PT IN BED RESTING QUEITLY. VSS. BREATHING EVEN AND UNLABORED. DENIES ANY PAIN OR NEEDS AT THIS TIME. BED RAILS UP X2. BED IN LOW POSITION, CALL LIGHT WITHIN REACH.
[2016-12-25] VITALS: BP 123/49
--- NOTE | 2016-12-25 03:02 | NUR ---
PT IN BED RESTING QUEITLY. IV HAS BEEN SALINE LOCKED PER PT REQUEST SO THAT HE COULD SLEEP. DENIES ANY OTHER NEEDS AT THIS TIME. BED IN LOW POSITION, CALL LIGHT WITHIN REACH.
[2016-12-25 04:00] VITALS: BP 114/53
[2016-12-25 05:21] LABS: BASOPHILS 0.1 % (0-2); EOSINOPHILS 0.7 % (0-7); HEMATOCRIT 26.3 % (42.0-54.0); HEMOGLOBIN 8.3 g/dL (13.5-17.5); IMMATURE GRANULOCYTES 0.4 % (0-5); LYMPHOCYTES 9.6 % (15-50); MCH 28.8 pg (26.0-34.0); MCHC 31.6 g/dL (31.0-37.0); MCV 91.3 fL (80.0-100.0); MEAN PLATELET VOLUME 10.3 fL (7.4-10.4); NEUTROPHILS 82.2 % (40-80); PLATELET COUNT 419 10x3/uL (130-400); RBC 2.88 10x6/uL (4.20-6.10); RDW 13.1 % (11.5-14.5); WBC 16.9 10x3/uL (4.8-10.8)
[2016-12-25 05:38] LABS: ALBUMIN 1.7 g/dL (3.4-5.0); ANION GAP 11.5 mmol/L (8-16); BILIRUBIN - TOTAL 0.27 mg/dL (0.2-1.3); CARBON DIOXIDE 24.3 mmol/L (21.0-32.0); CREATININE - SERUM 2.6 mg/dL (0.6-1.3); POTASSIUM - SERUM 3.8 mmol/L (3.5-5.1); PROTEIN - SERUM 6.7 g/dL (6.4-8.2)
[2016-12-25 08:00] VITALS: BP 108/36
--- NOTE | 2016-12-25 08:21 | NUR ---
AM ROUNDS COMPLETED. INTRODUCED MYSELF PRIMARY RN FOR TODAYS SHIFT. PT A&O SITTING UP ON EDGE OF BED RESTING EATING BREAKFAST. INTIATED PTS IVPB ANBX INFUSING OVER 30 MINS VIA L.FA PIV. ACCESS CDI AND SWAB CAPS IN USE, ALL TUBING CHANGED PER POLICY [id number] AND DATE AND INTIALED APPROPRIATELY. PT HAS DRSG TO HIS L.FOOT HE STATES ONLY THE DOCTOR CAN TOUCH, WILL CHECK FOR ORDERS. PT DENIES ANY CURRENT PAIN OR NEEDS AT THIS TIME. CL IN REACH, BED IN LOWEST, SIDE RAILS X2 WILL CPOC.
--- NOTE | 2016-12-25 09:15 | NUR ---
CUPOLA REPAIRER AT BEDSIDE PERFORMING WOUND DRSG CHANGE. PT TOLERATING WITHOUT ANY ISSUES AND STATES HE CANT FEEL IT. PT DENIES ANY CURRENT NEEDS. WILL CPOC.
--- NOTE | 2016-12-25 11:41 | NUR ---
FSBS 222 PT REC'D 4 UNITS OF SS INSULIN. PT LYING BACK IN BED RESTING QUIETLY AND WAITING ON LUNCH TRAY. CL IN REACH. WILL CPOC.
[2016-12-25 12:00] VITALS: BP 122/39
--- NOTE | 2016-12-25 15:36 | NUR ---
Nutrition Follow Up: Pt stated that his appetite is good. He agreed to try Pasquale BID. Noted pt is POD 1 I&D. Pt is eating 79% meal avg on a diabetic diet. Wt stable. +BM 12/22/16. Meds noted. Labs reviewed. Rec continue current diet. Will send Pasquale BID to promote wound healing. RD following.
[2016-12-25 16:00] VITALS: BP 131/44
--- NOTE | 2016-12-25 17:30 | NUR ---
PT SITTING UP IN BED EATING DINNER RESTING QUIETLY. PT DENIES ANY CURRENT PAIN OR NEEDS AT THIS TIME CL IN REACH, WILL CPOC.
--- NOTE | 2016-12-25 19:39 | NUR ---
TUBE MAN AT BEDSIDE TO OBTAIN VITALS, CALL LIGHT IN REACH. WILL CONTINUE WITH PLAN OF CARE.
--- NOTE | 2016-12-25 19:45 | NUR ---
PT IN BED. AROUSES TO VOICE. REQUESTS CREAM FOR LEFT HIP. SMALL PINK SPOT NOTED WITH SCAB. DENIES FURTHER NEEDS AT THIS TIME.
[2016-12-26] VITALS: BP 127/45
[2016-12-26 04:00] VITALS: BP 132/54
--- NOTE | 2016-12-26 07:39 | NUR ---
AM ROUNDS - PT IS IN BED AND AWAKE AT THIS TIME. BED AT LOWEST POSITION. CALL COKER IN USE/REACH. SIDE RAILS UP X2. IV TO LEFT FA, NS AT 100CC/HR. NO NEEDS AT THIS TIME. WILL CONINUTE TO MONITOR
[2016-12-26 08:03] VITALS: BP 122/41
--- NOTE | 2016-12-26 09:47 | NUR ---
Patient Name: STEW AARON Admission Status: ER Accout number: [id number] Admission Date: 12-15-2016 : 1945 Admission Diagnosis:CELLULITIS OF LEFT LOWER LIMB Attending: VERONICA JOHN Current LOS: 11 Anticipated DC Date: 12-26-2016 Planned Disposition: Fdc Facility Primary Insurance: [facility] PLANNED EXTERNAL PROVIDER: [facility], MEDICARE SKILLED BED Discharge Planning Comments: CM UPDATED NAY, , CLINICAL LIAISON FOR THE [facility], OF PENDING DISCHARGE IN NEXT WEEK. CM FAXED UPDATE FOR THE [facility] AND INSURANCE AUTHORIZATION. PT HAS MANAGED MEDICARE, THE [facility] WILL HAVE TO SUBMIT FOR REHAB AUTHORIZATION WHICH IS TYPICALLY GOOD FOR 48 HOURS ONCE RECEIVED. Record Pressman: Shar Osborn
[2016-12-26 10:18] LABS: BASOPHILS 0.2 % (0-2); EOSINOPHILS 1.4 % (0-7); HEMATOCRIT 26.6 % (42.0-54.0); HEMOGLOBIN 8.4 g/dL (13.5-17.5); IMMATURE GRANULOCYTES 0.2 % (0-5); LYMPHOCYTES 10.3 % (15-50); MCH 28.9 pg (26.0-34.0); MCHC 31.6 g/dL (31.0-37.0); MCV 91.4 fL (80.0-100.0); MEAN PLATELET VOLUME 9.8 fL (7.4-10.4); MONOCYTES 7.1 % (2-11); NEUTROPHILS 80.8 % (40-80); PLATELET COUNT 392 10x3/uL (130-400); RBC 2.91 10x6/uL (4.20-6.10); RDW 13.2 % (11.5-14.5)
[2016-12-26 10:28] LABS: WBC 12.6 10x3/uL (4.8-10.8)
[2016-12-26 10:42] LABS: % SATURATION 16 % (15-55); IRON 19 ug/dl (35-150); TOTAL IRON BIND CAPACITY 117 ug/dl (260-445); UNSAT IRON BIND CAPACITY 98 ug/dl (150-375)
[2016-12-26 10:50] LABS: ALBUMIN 1.7 g/dL (3.4-5.0); ANION GAP 12.7 mmol/L (8-16); BILIRUBIN - TOTAL 0.18 mg/dL (0.2-1.3); CARBON DIOXIDE 23.3 mmol/L (21.0-32.0); PHOSPHOROUS 3.1 mg/dL (2.5-4.9); PROTEIN - SERUM 6.7 g/dL (6.4-8.2)
[2016-12-26 10:59] LABS: CREATININE - SERUM 1.9 mg/dL (0.6-1.3)
[2016-12-26 12:38] VITALS: BP 161/57
--- NOTE | 2016-12-26 14:24 | NUR ---
PT IN BED AT THIS TIME AND APPEARS TO BE SLEEPING WITH EQUAL AND NON LABORED BREATHING. WILL CONTINUE TO MONITOR
[2016-12-26 16:14] VITALS: BP 177/64
--- NOTE | 2016-12-26 19:36 | NUR ---
PT IN BED RESTING. AROUSES TO VOICE. DENIES NEEDS AT THIS TIME.
[2016-12-26 20:00] VITALS: BP 153/47
[2016-12-27] VITALS: BP 135/54
--- NOTE | 2016-12-27 01:06 | NUR ---
PT RESTING COMFORTABLY ON LEFT SIDE, EYES CLOSED, RESPIRATIONS EVEN AND UNLABORED. CONTINUE TO MONITOR CLOSELY.
[2016-12-27 04:00] VITALS: BP 159/55
[2016-12-27 06:13] LABS: FOLATE (FOLIC ACID) - SERUM 4.7 ng/mL (>3.0)
[2016-12-27 06:20] LABS: BASOPHILS 0.2 % (0-2); EOSINOPHILS 2.2 % (0-7); HEMATOCRIT 29.5 % (42.0-54.0); HEMOGLOBIN 9.4 g/dL (13.5-17.5); IMMATURE GRANULOCYTES 0.4 % (0-5); LYMPHOCYTES 11.1 % (15-50); MCHC 31.9 g/dL (31.0-37.0); MONOCYTES 6.7 % (2-11); NEUTROPHILS 79.4 % (40-80); PLATELET COUNT 436 10x3/uL (130-400); RBC 3.24 10x6/uL (4.20-6.10); WBC 12.7 10x3/uL (4.8-10.8)
[2016-12-27 06:44] LABS: ANION GAP 14.7 mmol/L (8-16); BILIRUBIN - TOTAL 0.17 mg/dL (0.2-1.3); CALCIUM 8.6 mg/dL (8.5-10.1); CARBON DIOXIDE 22.6 mmol/L (21.0-32.0); CREATININE - SERUM 1.8 mg/dL (0.6-1.3); POTASSIUM - SERUM 4.3 mmol/L (3.5-5.1); PROTEIN - SERUM 7.7 g/dL (6.4-8.2)
[2016-12-27 08:00] VITALS: BP 165/53
--- NOTE | 2016-12-27 09:35 | NUR ---
MORNING ROUNDS COMPLETED. AM MEDICATIONS GIVEN. PT A&O RESTING QUIETLY IN BED AND STATES HE IS FEELING GOOD AND HAD A GOOD NIGHT. INTIATED PTS IVPB ANBX INFUSING OVER 30 MINS VIA R.FA PIV ACCESS. DRSG CDI AND SWAB CAPS IN USE WITH TUBING DATED. PTS L.FOOT DRSG CDI WILL NEED CHANGED TODAY THE ASSISTANT ART DIRECTOR HAS ORDERED, HE HAS BEEN CHANGING DURING THE WEEK BUT NURSES DO IT OVER THE WEEKEND. WILL CHANGE IT TODAY. EMPTIED BEDSIDE URINAL OF 375ML CLEAR YELLOW URINE. PT DENIES ANY CURRENT PAIN OR NEEDS. CL IN REACH, BED IN LOWEST, SIDE RAILS X2. WILL CPOC.
[2016-12-27 12:00] VITALS: BP 134/42
--- NOTE | 2016-12-27 12:00 | NUR ---
URINE SPECIMEN COLLECTED AND SENT TO LAB ORDERED.
--- NOTE | 2016-12-27 12:26 | NUR ---
FSBS 223 PT REC'D 12 UNITS OF INSULIN PER SS. PT C/O HIS L.FOOT HURTING, WANTS ME TO CHANGE DRSG AT A LATER TIME, PRN PAIN PILL PROVIDED FOR PAIN. PT SITTING UP ON EDGE OF BED EATING LUNCH AND DENIES ANY FURTHER NEEDS AT THIS TIME. CL IN REACH, BED IN LOWEST, SIDE RAILS X2, WILL CPOC.
[2016-12-27 12:39] LABS: CREATININE - URINE 51.7 mg/dL (30-125); PROTEIN - URINE 93.3 mg/dL (0.0-11.9)
[2016-12-27 16:00] VITALS: BP 160/67
--- NOTE | 2016-12-27 16:50 | NUR ---
FSBS 267 PT REC'D 16UNITS PER SS AND IS SITTING ON EDGE OF BED EATING DINNER. DRSG CHANGE STILL NEEDS DONE AND PT PREFERS AFTER A SHOWER AND DINNER. WILL TRY TO GET TO THIS IS POSSIBLE BEFORE MY SHIFT ENDS, IF NOT WILL PASS TO NIGHTSHIFT R/T IT HAS TO BE DONE DAILY OVER THE WEEKEND.
--- NOTE | 2016-12-27 19:42 | NUR ---
RECEIVED REPORT, WILL ASSUME CARE OF PT, PT SLEEPING, BED IS LOW,SRX2, CALL LIGHT IN REACH, WILL CONTINUE PLAN OF CARE
[2016-12-27 20:00] VITALS: BP 122/56
--- NOTE | 2016-12-27 21:33 | NUR ---
DRESSING CHANGE TO L. HEEL PER ORDER
--- NOTE | 2016-12-28 00:19 | NUR ---
ASSESSMENT COMPLETE, SEE FLOWSHEET, PT SLEEPING, BED IS LOW, SRX2, CALL LIGHT IN REACH, WILL CONTINUE PLAN OF CARE
[2016-12-28 04:00] VITALS: BP 156/51
[2016-12-28 04:45] LABS: BASOPHILS 0.4 % (0-2); EOSINOPHILS 2.3 % (0-7); HEMATOCRIT 27.5 % (42.0-54.0); HEMOGLOBIN 8.6 g/dL (13.5-17.5); IMMATURE GRANULOCYTES 0.4 % (0-5); LYMPHOCYTES 13.7 % (15-50); MCH 28.6 pg (26.0-34.0); MCHC 31.3 g/dL (31.0-37.0); MCV 91.4 fL (80.0-100.0); MEAN PLATELET VOLUME 9.9 fL (7.4-10.4); MONOCYTES 9.5 % (2-11); NEUTROPHILS 73.7 % (40-80); PLATELET COUNT 412 10x3/uL (130-400); RBC 3.01 10x6/uL (4.20-6.10); RDW 13.1 % (11.5-14.5)
[2016-12-28 04:46] LABS: WBC 9.2 10x3/uL (4.8-10.8)
[2016-12-28 05:07] LABS: ALBUMIN 1.9 g/dL (3.4-5.0); ANION GAP 10.9 mmol/L (8-16); BILIRUBIN - TOTAL 0.2 mg/dL (0.2-1.3); CALCIUM 8.5 mg/dL (8.5-10.1); CARBON DIOXIDE 25.9 mmol/L (21.0-32.0); CREATININE - SERUM 1.5 mg/dL (0.6-1.3); POTASSIUM - SERUM 3.8 mmol/L (3.5-5.1)
--- NOTE | 2016-12-28 07:24 | NUR ---
AM ROUNDS- PT IN BED, WITH EYES CLOSED, EASILY AROUSES TO VOICE. RESP EVEN AND UNLABORED, RT FA INFUSING NS AT 30CC/HR. PT DENIES ANY NEEDS AT THIS TIME. BED LOW AND WHEELS LOCKED, BEDSIDE RAILS X2, CALL LIGHT IN REACH, NAD NOTED, WILL CONTINUE TO MONITOR.
[2016-12-28 08:00] VITALS: BP 157/59
--- NOTE | 2016-12-28 08:24 | NUR ---
AM MEDS GIVEN AT THIS TIME. PT IN BED, WATCHING TV, DENIES ANY NEEDS AT THIS TIME. CALL LIGHT IN REACH, NAD NOTED, WILL CONTINUE TO MONITOR.
--- NOTE | 2016-12-28 11:39 | NUR ---
BLOOD SUGAR OF 199, 8UNITS OF HUMULIN GIVEN PER S/S. ALSO PROVIDED DRESSING CHANGE TO BOTTOM OF LEFT FOOT. CLEANED SITE WITH BETADINE AND PACKED WITH 1/2 IN OF IODOFORM GAUZE AND COVERED WITH 4X4, ABD AND KERLIX. SIGNED AND DATED. PT TOLERATED PROCEDURE WELL, DENIES ANY NEEDS AT THIS TIME. CALL LIGHT IN REACH, NAD NOTED, WILL CONTINUE TO MONITOR.
[2016-12-28 16:00] VITALS: BP 167/66
--- NOTE | 2016-12-28 16:13 | NUR ---
BLOOD SUGAR OF 222, 12UNITS OF HUMULIN R GIVEN PER S/S. ALSO EMPTIED PT'S URINAL. PT DENIES ANY NEEDS AT THIS TIME. CALL LIGHT IN REACH, NAD NOTED, WILL CONTINUE TO MONITOR.
[2016-12-28 20:00] VITALS: BP 132/64
--- NOTE | 2016-12-28 22:12 | NUR ---
INITIAL ROUNDS COMPLETED AT 1920 HRS. PT DENIED ANY DISCOMFORT. ASSESSMENT COMPLETED T 2015 HRS. VSS. IV TO RFA/AC WITH NS AT 30CC/HR. IV PATENT. LUNGS DIMINISHED IN BASES BILAT. DRESSING TO L FOOT CLEAN, DRY AND INTACT. PM MEDS GIVEN. PM SNACK SERVED. PM FSBS 302. 20 UNITS HUMULIN R GIVEN SUB-Q TO UPPER L ABD. PT CURENTLY WATCHING TV. WILL CONTINUE TO MONITOR. SR UP X2, CALL LIGHT WITHIN REACH.
--- NOTE | 2016-12-28 23:54 | NUR ---
PT AWAKE; DENIES ANY DISCOMFORT. WILL CONTINUE TO MONITOR.
[2016-12-29] VITALS: BP 129/57; BP 158/52
--- NOTE | 2016-12-29 02:32 | NUR ---
PT RESTING WITH EYES CLOSED. RESP EVEN AND REGULAR. SR UP X2, CALL LIGHT WITHIN REACH.
--- NOTE | 2016-12-29 04:29 | NUR ---
PT RESTING WITH EYES CLOSED. RESP EVEN AND REGULAR. SR UP X2, CALL LIGHT WITHIN REACH.
[2016-12-29 04:35] LABS: BASOPHILS 0.5 % (0-2); EOSINOPHILS 2.3 % (0-7); HEMATOCRIT 28.7 % (42.0-54.0); IMMATURE GRANULOCYTES 0.4 % (0-5); LYMPHOCYTES 16.6 % (15-50); MCH 28.8 pg (26.0-34.0); MCHC 31.4 g/dL (31.0-37.0); MCV 91.7 fL (80.0-100.0); MEAN PLATELET VOLUME 9.8 fL (7.4-10.4); MONOCYTES 8.1 % (2-11); NEUTROPHILS 72.1 % (40-80); PLATELET COUNT 428 10x3/uL (130-400); RBC 3.13 10x6/uL (4.20-6.10); RDW 13.2 % (11.5-14.5); WBC 8.5 10x3/uL (4.8-10.8)
[2016-12-29 04:53] LABS: ALBUMIN 1.9 g/dL (3.4-5.0); ANION GAP 10.6 mmol/L (8-16); BILIRUBIN - TOTAL 0.2 mg/dL (0.2-1.3); CALCIUM 8.7 mg/dL (8.5-10.1); CARBON DIOXIDE 28.2 mmol/L (21.0-32.0); CREATININE - SERUM 1.4 mg/dL (0.6-1.3); POTASSIUM - SERUM 3.8 mmol/L (3.5-5.1); PROTEIN - SERUM 6.9 g/dL (6.4-8.2)
--- NOTE | 2016-12-29 06:02 | NUR ---
PT REQUESTING PAIN MEDS. NO PAIN MEDS AT THIS TIME. DR. ORONA PAGED.
--- NOTE | 2016-12-29 06:18 | NUR ---
MD RETURNS CALL AT 0610. EXPLAINED PAIN MEDS FELL OF PER PHARMACY. NEW ORDERS RECEIVED AND NOTED. NOCO 5/325 PO GIVEN FOR C/O L FOOT PAIN 4/10. AM FSBS 142. NO COVERGE NEEDED. BED BATH DONE, BED LINENS CAHNGED. NEEDS MET; WILL CONTINUE TO MONITOR.
[2016-12-29 07:03] VITALS: BP 146/43
[2016-12-29 08:05] VITALS: BP 149/44
[2016-12-29 12:07] VITALS: BP 124/46
[2016-12-29 15:42] VITALS: BP 153/59
--- NOTE | 2016-12-29 17:01 | NUR ---
ALERT AND ORIENTED X4. RESTING IN BED. REFUSE TO USE BEDSIDE COMMODE. AMBULATES TO RESTROOM ASSISTED BY WALKER. RT FA IV INFUSING NS KVO. FSBS 238 TREATED WITH 12 UNITS HUMULIN R ORDERED. DENIES ANY NEEDS AT THIS TIME. BED LOCKED AND LOW. CALL LIGHT IN REACH. TWO SIDERAILS UP.
[2016-12-29 19:00] VITALS: BP 145/41
--- NOTE | 2016-12-29 19:21 | NUR ---
RECEIVED REPORT, WILL ASSUME CARE OF PT, DENIES ANY NEEDS AT THIS TIME, BED IS LOW, SR2, CALL LIGHT IN REACH, WILL CONTINUE PLAN OF CARE
--- NOTE | 2016-12-30 02:21 | NUR ---
PT ASLEEP. RESPIRATIONS EVEN AND UNLABORED. NS INFUSING @ 30 TO RIGHT FOREARM. PT HAS NO S/S OF DISTRESS. BED LOW AND CALL LIGHT IN REACH. WILL CPOC
--- NOTE | 2016-12-30 03:13 | NUR ---
ASSESSMENT COMPLETE, SEE FLOWSHEET, PT SLEEPING, BEEN NPO SINCE MIDNIGHT, BED IS LOW, SR2, CALL LIGHT IN REACH, WILL CONTINUE PLAN OF CARE
[2016-12-30 04:00] VITALS: BP 144/47
[2016-12-30 04:17] LABS: BASOPHILS 0.5 % (0-2); EOSINOPHILS 2.3 % (0-7); HEMATOCRIT 28.4 % (42.0-54.0); HEMOGLOBIN 8.8 g/dL (13.5-17.5); IMMATURE GRANULOCYTES 0.5 % (0-5); LYMPHOCYTES 17.8 % (15-50); MCH 28.7 pg (26.0-34.0); MCV 92.5 fL (80.0-100.0); MONOCYTES 8.6 % (2-11); NEUTROPHILS 70.3 % (40-80); PLATELET COUNT 394 10x3/uL (130-400); RBC 3.07 10x6/uL (4.20-6.10); RDW 13.1 % (11.5-14.5); WBC 8.2 10x3/uL (4.8-10.8)
[2016-12-30 04:39] LABS: ALBUMIN 1.8 g/dL (3.4-5.0); ANION GAP 11.5 mmol/L (8-16); BILIRUBIN - TOTAL 0.13 mg/dL (0.2-1.3); CALCIUM 8.5 mg/dL (8.5-10.1); CARBON DIOXIDE 27.4 mmol/L (21.0-32.0); CREATININE - SERUM 1.5 mg/dL (0.6-1.3); POTASSIUM - SERUM 3.9 mmol/L (3.5-5.1); PROTEIN - SERUM 6.9 g/dL (6.4-8.2)
--- NOTE | 2016-12-30 07:23 | NUR ---
AM ROUNDS - PT IN BED AT THIS TIME AND APPEARS TO BE SLEEPING WITH EQUAL AND NON LABORED BREATHING. IV TO RIGHT FA, NS @ 30CC/HR. BED AT LOWEST POSITION. CALL COKER IN USE/REACH. SIDE RAILS UP 2. WILL CONTINUE TO MONITOR
[2016-12-30 08:06] VITALS: BP 143/48
--- NOTE | 2016-12-30 09:04 | NUR ---
Patient Name: STEW AARON Encounter No: [id number] : 1945 Primary Insurance: [employer] Anticipated DC Date: 12-26-2016 Planned Disposition: Half-Way Facility External Planned Provider: [facility], MEDICARE REHAB BED DCP follow-up note: CM RECEIVED DISCHARGE PLANNING ORDER FOR TODAY; CM UPDATED NAY, , CLINICAL LIAISON FOR [facility], OF PENDING DISCHARGE POSSIBLY TODAY AFTER SURGERY. CM FAXED UPDATE TO THE [facility] FOR INSURANCE AUTHORIZATION. PT HAS MANAGED MEDICARE, [facility] WILL SUBMIT FOR REHAB / SKILLED CARE AUTHORIZATION FROM PT'S INSURANCE. Product Support Manager: Shar Osborn
--- NOTE | 2016-12-30 11:49 | NUR ---
CONCENTS ARE SIGNED AND IN THE CHART. PT HAS BEEN PROPED. WILL CONTINUE TO MONITOR
[2016-12-30 12:08] VITALS: BP 156/49
--- NOTE | 2016-12-30 12:54 | NUR ---
PT LEFT FLOOR VIA BED WITH OR STAFF FOR PROCEDURE.
--- NOTE | 2016-12-30 13:56 | NUR ---
PT IS CURRENTLY AT A PROCEDURE.
[2016-12-30 17:18] VITALS: BP 180/81
--- NOTE | 2016-12-30 19:30 | NUR ---
PT PULLED IV OUT AT THIS TIME. IV RESITED TO R FOREARM PT TOLERATED WELL
--- NOTE | 2016-12-30 19:30 | NUR ---
PT PULLED IV OUT AT THIS TIME. UNABLE TO RESITE WILL CONTINUE TO TRY
[2016-12-30 19:33] VITALS: BP 170/72
--- NOTE | 2016-12-30 23:15 | NUR ---
PT LYING IN BED ON HIS LEFT SIDE, EYES CLOSED, RESPIRATIONS EVEN AND UNLABORED. CONTINUE TO MONITOR CLOSELY.
[2016-12-31 00:30] VITALS: BP 139/51
--- NOTE | 2016-12-31 04:47 | NUR ---
IV RESITED TO RIGHT AC
[2016-12-31 04:49] VITALS: BP 141/49
[2016-12-31 05:51] LABS: BASOPHILS 0.5 % (0-2); EOSINOPHILS 2.2 % (0-7); HEMATOCRIT 29.9 % (42.0-54.0); HEMOGLOBIN 9.1 g/dL (13.5-17.5); IMMATURE GRANULOCYTES 0.4 % (0-5); LYMPHOCYTES 11.5 % (15-50); MCH 28.6 pg (26.0-34.0); MCHC 30.4 g/dL (31.0-37.0); MEAN PLATELET VOLUME 10.4 fL (7.4-10.4); MONOCYTES 9.9 % (2-11); NEUTROPHILS 75.5 % (40-80); PLATELET COUNT 430 10x3/uL (130-400); RBC 3.18 10x6/uL (4.20-6.10); RDW 13.2 % (11.5-14.5)
[2016-12-31 06:00] LABS: WBC 10.8 10x3/uL (4.8-10.8)
[2016-12-31 06:25] LABS: ANION GAP 11.4 mmol/L (8-16); BILIRUBIN - TOTAL 0.13 mg/dL (0.2-1.3); CALCIUM 8.5 mg/dL (8.5-10.1); CARBON DIOXIDE 28.7 mmol/L (21.0-32.0); CREATININE - SERUM 1.7 mg/dL (0.6-1.3); POTASSIUM - SERUM 4.1 mmol/L (3.5-5.1); PROTEIN - SERUM 7.6 g/dL (6.4-8.2)
--- NOTE | 2016-12-31 07:00 | NUR ---
AM ROUNDS- PT IN BED, DENIES ANY NEEDS AT THIS TIME. RESP EVEN AND UNLABORED, RT AC INFUSING NS AT 50CC/HR. BED LOW AND WHEELS LOCKED, SCD'S ON BILAT, BEDSIDE RAILS X2, CALL LIGHT IN REACH, NAD NOTED, WILL CONTINUE TO MONITOR.
[2016-12-31 08:11] VITALS: BP 143/50
--- NOTE | 2016-12-31 08:12 | NUR ---
AM MEDS GIVEN AT THIS TIME, ALSO GAVE 5MG OF NORCO FOR PAIN LEVEL OF 4/10. PT UP TO SIDE OF BED, EATING BREAKFAST, DENIES ANY NEEDS. CALL LIGHT IN REACH, NAD NOTED, WILL CONTINUE TO MONITOR.
--- NOTE | 2016-12-31 09:30 | NUR ---
Nutrition Follow Up: Pt is eating 96% meal avg on a diabetic diet. Pt is POD 1 I&D with closure. Wt stable. +BM 12/29/16. Meds and labs reviewed. Rec continue current diet. Will send Pasquale BID. RD following.
--- NOTE | 2016-12-31 09:54 | NUR ---
Patient Name: STEW AARON Encounter No: [id number] : 1945 Primary Insurance: [employer] Anticipated DC Date: 12-31-2016 Planned Disposition: Detention Facility External Planned Provider: [facility], MEDICARE SKILLED BED DCP follow-up note: CM RECEIVED ORDER FOR DISCHAGE PLANNING FOR TODAY. CM CALLED NAY, CLINICAL LIAISON FOR [facility], , WHO ADVISED HAVING INSURANCE AUTHORIZATION FOR SKILLED SERVICES AT [facility]. CM FAXED UPDATE TO [facility] VIA NAY AT [phone]. PATIENT WILL REQUIRE PICC LINE FOR IV ANTIBIOTICS. CM CALLED DR. RUFFIN OFFICE TO ASK FOR DISCHARGE ORDERS/PLAN, SPOKE TO NURSE DASIA WHO REPORTS DR. HOPE TO BE IN SURGERY AND HE IS OK WITH DISCHARGE FOR TODAY AND WILL COME TO FLOOR SHORTLY TO PROVIDE INSTRUCTIONS AND ORDERS. CM NOTIFIED DR. JOHN, ASKED FOR ORDER FOR PICC LINE. FOR DISCHARGE TO [facility], FAX DISCHARGE INFORMATION TO [facility] AT [phone]; NURSE REPORT TO BE CALLED TO [facility] AT [phone]. [facility] TO ARRANGE VAN TRANSPORATION. Shar Osborn, CASE MANAGEMENT
[2016-12-31] MEDS ORDERED: LISINOPRIL5 MG PO (10:02)
[2016-12-31] MEDS ORDERED: COREG6.25 MG PO (10:02)
[2016-12-31] MEDS ORDERED: LANTUS INSULIN10 ML SC (10:03)
[2016-12-31] MEDS ORDERED: MAXIPIME 2 GM/D52 G1 IV (10:18)
[2016-12-31 12:14] VITALS: BP 146/60
--- NOTE | 2016-12-31 12:16 | NUR ---
BLOOD SUGAR OF 215- 12UNITS GIVEN PER S/S. PT UP TO SIDE OF BED, FIXING TO EAT LUNCH, DENIES ANY NEEDS AT THIS TIME. CALL LIGHT IN REACH, NAD NOTED, WILL CONTINUE TO MONITOR.
--- NOTE | 2016-12-31 12:56 | NUR ---
Patient Name: STEW AARON Encounter No: [id number] : 1945 Primary Insurance: [employer] Anticipated DC Date: 12-31-2016 Planned Disposition: Long Term Facility External Planned Provider: [facility], MEDICARE SKILLED BED DCP follow-up note: CM SPOKE TO PT IN ROOM, IN AGREEMENT WITH DISCHARGE TO [facility] FOR REHAB AND SKILLED CARE. CM FAXED DISCHARGE INFORMATION TO [facility] AT [phone]. NURSE REPORT TO BE CALLED TO [facility] AT [phone]. [facility] TO ARRANGE VAN TRANSPORATION FOR 2PM TODAY. FLOW COODINATOR NURSE NOTIFIED. Shar Osborn, CASE MANAGEMENT
[2016-12-31] MEDS ORDERED: HUMULIN R100 U/ML SC (12:57)
--- NOTE | 2016-12-31 13:42 | NUR ---
PROVIDED VERBAL AND WRITTEN D/C TEACHING TO PT, PT VERBALIZED UNDERSTANDING REGARDING TEACHING. D/C RT AC IV, TIP INTACT. HELPED PT GET BELONGINGS READY. PHONE, WALLET, GLASSES, BELT, SHOES, AND CLOTHING PLACED IN BAG. PT DENIES ANY NEEDS AT THIS TIME. CALL LIGHT IN REACH, NAD NOTED, WILL CONTINUE TO MONITOR.
--- NOTE | 2016-12-31 14:12 | NUR ---
CALLED THE [facility], GAVE REPORT TO JOSÉ NOLASCO WHO WILL BE TAKING CARE OF PT. BRIA WILL PICK PT AROUND [phone].
--- NOTE | 2016-12-31 14:51 | NUR ---
[facility] DIAMOND POWDER TECHNICIAN HERE TO SHIPYARD HELPER PT. PT LEFT UNIT VIA WHEELCHAIR, NAD NOTED.
[2017-02-19] MEDS ORDERED: FERRETTS324 MG PO (15:38)
[2017-02-19] MEDS ORDERED: ASCORBIC ACID500 MG PO (15:38)
== END 2016-12-31 15:15 | DRG 638 ==
LOC: D.ER 12:25 → D.M2 16:57
PROVIDERS: Emergency Medicine; Family Medicine; Internal Medicine; Internal Medicine Nephrology; Nurse Practitioner Acute Care; Podiatrist Foot & Ankle Surgery; ADMIT Family Medicine
PROC: 0HBNXZZ Excision of Left Foot Skin, External Approach (ICD-10-PCS; 2016-12-24)
PROC: 0H9NXZZ Drainage of Left Foot Skin, External Approach (ICD-10-PCS; principal; 2016-12-24 08:00)
PROC: 0H9NXZZ Drainage of Left Foot Skin, External Approach (ICD-10-PCS; 2016-12-30)
PROC: 02HV33Z Insertion of Infusion Device into Superior Vena Cava, Percutaneous Approach (ICD-10-PCS; 2016-12-31)
PROC: B548ZZA Ultrasonography of Superior Vena Cava, Guidance (ICD-10-PCS; 2016-12-31)
DX: E11.69 Type 2 diabetes mellitus with other specified complication (principal); M86.172 Other acute osteomyelitis, left ankle and foot; Z79.4 Long term (current) use of insulin; I12.9 Hypertensive chronic kidney disease with stage 1 through stage 4 chronic kidney disease, or unspecified chronic kidney disease; E11.22 Type 2 diabetes mellitus with diabetic chronic kidney disease; N18.3 Chronic kidney disease, stage 3 (moderate); N17.9 Acute kidney failure, unspecified; Z86.73 Personal history of transient ischemic attack (TIA), and cerebral infarction without residual deficits; Z87.891 Personal history of nicotine dependence; B96.1 Klebsiella pneumoniae [K. pneumoniae] as the cause of diseases classified elsewhere; B96.5 Pseudomonas (aeruginosa) (mallei) (pseudomallei) as the cause of diseases classified elsewhere; E88.09 Other disorders of plasma-protein metabolism, not elsewhere classified

== ENCOUNTER 2017-01-03 07:00 | Emergency (ER) | payer MEDICARE, MEDICAID ==
[~2017-01-03 07:00] MED LIST changes: +COREG6.25 MG PO; +DOXYCYCLINE HY100 M2; +HUMULIN R100 U/ML SC; +LANTUS INSULIN10 ML SC; +LISINOPRIL5 MG PO; +MAXIPIME 2 GM/D52 G1 IV
[2017-02-19] MEDS ORDERED: ASCORBIC ACID500 MG PO (15:38)
[2017-02-19] MEDS ORDERED: FERRETTS324 MG PO (15:38)
== END 2017-01-03 11:00 | disposition home or self-care (01) ==
LOC: D.ER 07:00
DX: T82.898A Other specified complication of vascular prosthetic devices, implants and grafts, initial encounter (principal); L03.90 Cellulitis, unspecified; E11.9 Type 2 diabetes mellitus without complications; Z79.4 Long term (current) use of insulin; I10 Essential (primary) hypertension

== ENCOUNTER 2017-01-10 00:19 | Emergency (ER) | payer MEDICARE, MEDICAID ==
[2017-02-19] MEDS ORDERED: FERRETTS324 MG PO (15:38)
[2017-02-19] MEDS ORDERED: ASCORBIC ACID500 MG PO (15:38)
== END 2017-01-10 00:40 | disposition home or self-care (01) ==
LOC: D.ER 00:19
DX: Z45.2 Encounter for adjustment and management of vascular access device (principal); Z79.2 Long term (current) use of antibiotics

== ENCOUNTER → 2017-01-15 10:20 | Outpatient (CLI) | payer MEDICARE, MEDICAID ==
[~2017-01-15 10:20] MED LIST changes: +ACETAMINOPHEN325 MG PO; +ACIDOPHILUS LAC1 CAP PO; +ASCORBIC ACID500 MG PO; +CIPRO500 MG PO; +FERRETTS324 MG PO; +SENNA8.6 MG PO; +ULTRAM50 MG PO; +VANCOMYCIN 1 GM/1 G1 IV; +VIBRAMYCIN 100100 MG PO; +ZOFRAN4 MG PO
--- NOTE | 2017-01-15 11:04 | NUR ---
1100--PT STATES "I NEED MY BLOOD SUGAR CHECKED, I FELT LIKE I WAS GOING TO THROW UP A LITTLE BIT AGO AND LIKE I WAS DIZZY, THAT'S HOW I FEEL WHEN MY BLOOD SUGAR IS LOW." FSBS COMPLETE--287. HGRAVES RN
[2017-01-15 11:24] VITALS: BMI 32.9
--- NOTE | 2017-01-15 13:19 | NUR ---
PICC LINE PLACEMENT PICC LINE IN PLACE PER RADIOLOGY. CHAYA NOTIFIED.
== END | disposition home or self-care (01) ==
LOC: D.OPS 10:20
DX: L03.90 Cellulitis, unspecified (principal)

== ENCOUNTER 2017-02-20 05:29 | Day surgery (SDC) | payer MEDICARE, MEDICAID ==
[~2017-02-20] VITALS: Ht 188 cm; Wt 114.3 kg
[~2017-02-20 05:29] MED LIST changes: -ACETAMINOPHEN325 MG PO; -ACIDOPHILUS LAC1 CAP PO; -CIPRO500 MG PO; -SENNA8.6 MG PO; -ULTRAM50 MG PO; -VANCOMYCIN 1 GM/1 G1 IV; -VIBRAMYCIN 100100 MG PO; -ZOFRAN4 MG PO
[2017-02-20 06:33] VITALS: BP 131/68; Ht 188 cm; Wt 114.3 kg
[2017-02-20 06:38] LABS: HEMATOCRIT 30.1 % (42.0-54.0); HEMOGLOBIN 9.5 g/dL (13.5-17.5); MCH 28.2 pg (26.0-34.0); MCHC 31.6 g/dL (31.0-37.0); MCV 89.3 fL (80.0-100.0); MEAN PLATELET VOLUME 10.5 fL (7.4-10.4); RBC 3.37 10x6/uL (4.20-6.10); RDW 13.7 % (11.5-14.5); WBC 9.6 10x3/uL (4.8-10.8)
--- NOTE | 2017-02-20 13:43 | NUR ---
1100--PT VOIDS, IV DC'D. HECTOR BASURTO 1120--DISCHARGE INSTRUCTIONS GIVEN, PT VERBALIZES UNDERSTANDING. PT OFF UNIT VIA WC. HECTOR BASURTO
== END 2017-02-20 11:20 | disposition home or self-care (01) ==
LOC: D.OPS 05:29
PROVIDERS: Anesthesiology
DX: I96 Gangrene, not elsewhere classified (principal); I10 Essential (primary) hypertension; E11.9 Type 2 diabetes mellitus without complications; Z01.812 Encounter for preprocedural laboratory examination

== ENCOUNTER 2017-02-22 16:18 | Inpatient (IN) | payer MEDICARE, MEDICAID ==
[~2017-02-22] VITALS: Ht 188 cm; Wt 113.7 kg
--- NOTE | ~2017-02-22 | CN ---
PATIENT NAME:STEW AARON MEDICAL RECORD: [id number] : [birth year] LOCATION:[facility] [id number] ADMIT DATE: 02/22/17 ACCOUNT: [id number] CONSULTING PHYSICIAN: DOMINIC LYNCH MD REFERRING PHYSICIAN: VERONICA JOHN DO DATE OF CONSULTATION: 02/24/2017 DIAGNOSES: 1. Shortness of breath, dyspnea on exertion. 2. Elevated troponin. 3. Blood cultures positive for Gram-negative rods. 4. Hypertension. 5. Hyperlipidemia. HISTORY OF PRESENT ILLNESS: This is a gentleman with no previous cardiac history who presents with shortness of breath, has some mildly elevated troponin. EKG is with nonspecific ST-T abnormalities, no acute changes. He has a normal ejection fraction at 50% with no significant valvular disease. Chest x-ray is compatible with an infiltrate and possibly pulmonary edema as well. He has no previous history of cardiac disease. PHYSICAL EXAMINATION: GENERAL APPEARANCE: Well-nourished, well-developed, appears stated age. Level of distress, comfortable. PSYCHIATRIC: Mental status, alert, normal affect. Orientation, oriented to time, place and person. EYES: Lids and conjunctiva, noninjected. No discharge, no pallor. ENT: Lips, teeth, gums, normal dentition. Oropharynx, no cyanosis, no pallor. NECK: Carotid arteries, bilateral normal upstroke, no bruits, no thrills. JUGULAR VEINS: No jugular venous pressure or distention. CERVICAL LYMPH NODES: Nontender, nonenlarged. THYROID: Not enlarged. Nontender. No nodules. LUNGS: Respiratory effort, unlabored. CHEST: Normal curvature. No thoracic deformity. No chest wall tenderness. Percussion, resonant. Auscultation, clear. No wheezes, no rales, no rhonchi. CARDIOVASCULAR: Precordial exam, nondisplaced. No heaves or pericardial thrills. Rate and rhythm, regular. Heart sounds, normal S1, normal S2. No S3, no gallop, no rub. Systolic murmur, not heard. Diastolic murmur, not heard. EXTREMITIES: No cyanosis, no edema. Peripheral pulses, full and equal in all extremities, except as noted. No bruits appreciated. ABDOMEN: Soft, nondistended. Normal aorta. No bruit. Nontender. No masses. Liver, nontender, no hepatomegaly. Spleen, nontender, no splenomegaly. MUSCULOSKELETAL: No joint tenderness. No joint swelling. No erythema. NEUROLOGICAL: Normal gait, normal strength, normal tone. SKIN: Warm and dry. REVIEW OF SYSTEMS: The patient reports easy bruising but reports no swollen glands. The patient reports no fever, no night sweats, no significant weight gain, no significant weight loss. No significant exercise tolerance. The patient reports no dry eyes, no irritation, no vision change. Patient reports no difficulty hearing and no ear pain. Patient reports no frequent nose bleeds or nose and sinus problems. Patient reports on arm pain on exertion. No shortness of breath while lying down. No history of heart murmur. Patient reports no cough, no wheezing or coughing up blood. Patient reports no abdominal pain, no vomiting. Normal appetite. No diarrhea and not vomiting CONSULT REPORT [id number] STEW AARON blood. No nausea and no constipation. Patient reports no incontinence. No difficulty urinating. No hematuria. No increased frequency. Patient reports no muscle aches. No weakness, no arthralgias, no back pain. No swelling of the extremities. Patient reports no abnormal mole, no jaundice, no rashes. Reports no loss of consciousness. No weakness and no numbness. No seizures, dizziness, or headaches. The patient reports no depression, no sleep disturbance, feeling safe in a relationship and no alcohol abuse. Patient reports on fatigue. Reports no runny nose or sinus pressure. No itching, no hives, and no frequent sneezing. OVERALL IMPRESSION: Elevated troponin, very well likely has hemodynamically significant underlying coronary artery disease and would benefit from coronary angiography and revascularization; however, with Gram-negative rods, we will allow few more days of IV antibiotics prior to that. As well he has renal insufficiency, we will recheck his renal function. Plan for cardiac catheterization in the near future. TRANSINT:[id number] Voice Confirmation ID: [id number] DOCUMENT ID: [id number] DOMINIC LYNCH MD at 1215 CC: [id number] DICTATION DATE: 02/24/17 1019 BAGMAN/WOMAN: 02/24/17 1049 ADM IN [place] [id number] [place] [address]
--- NOTE | ~2017-02-22 | HP ---
PATIENT: STEW AARON MEDICAL RECORD: [id number] ACCOUNT: [id number] LOCATION:[address] : [birth year] ADMISSION DATE: 02/22/17 HISTORY AND PHYSICAL EXAMINATION Admission History and Physical HISTORY OF PRESENT ILLNESS: A 71-year-old male who presents from the longterm with progressive shortness of breath, orthopnea. The patient has a wound VAC on his left foot from a nonhealing wound. PAST MEDICAL HISTORY: Also significant for recurrent cellulitis, hypertension, insulin-dependent diabetes mellitus, peripheral vascular disease, and hyperlipidemia. Also history of chronic kidney disease. MEDICATIONS: Triglide 160 mg daily, lisinopril 5 mg daily, simvastatin 40 mg at bedtime, Lantus 90 units at bedtime, hydrochlorothiazide 25 mg daily, Plavix 75 mg daily, cefepime 2 grams per 50 mL b.i.d., Coreg 6.25 mg b.i.d., aspirin 325 mg daily. REVIEW OF SYSTEMS: GENERAL: The patient is somewhat limited historian. Reports that his breathing has improved a little bit since he arrived. HEENT: Denies cephalgia, visual changes, tinnitus, epistaxis, or dysphagia. CARDIOVASCULAR: History as above. PULMONARY: Denies hemoptysis. GASTROINTESTINAL: Denies hematemesis, hematochezia or melena. GENITOURINARY: Denies dysuria. MUSCULOSKELETAL: Nonhealing wound of left foot with wound VAC. PHYSICAL EXAMINATION: VITAL SIGNS: Temperature 100.2, blood pressure is 142/76, heart rate 94, respirations 24, and O2 sat 87% on room air. GENERAL: Alert and oriented, no present distress at rest. HEENT: Normocephalic and atraumatic. Eyes: Pupils equally round and reactive to light and accommodation. Extraocular muscles are intact. Conjunctivae are not injected. Ears: Canals patent. TMs are intact. Nose: Nares patent without drainage. Throat: No erythema, no exudates. NECK: Supple. No lymphadenopathy. No JVD. HEART: Regular rate and rhythm. No S3, S4. No rub. LUNGS: Breathing is nonlabored. No rhonchi. No wheeze. ABDOMEN: Soft, obese, and nontender. Bowel sounds in all 4 quadrants. EXTREMITIES: Present times 4. Trace edema. NEUROLOGIC: Intact. SKIN: Warm and dry. No rash. He has a nonhealing wound with wound VAC, left foot. EKG shows normal sinus rhythm, rate of 83, diffuse ST and T-wave abnormality, abnormal EKG, concern for lateral ischemia. LABORATORY DATA: Rapid influenza A and B is negative. CBC: White count 12.9, hemoglobin 8.7, hematocrit 27.2, platelets 241, neutrophils 84.5. D-dimer is elevated. VQ scan was negative. Sodium 138, potassium 4.2, chloride 102, bicarbonate 26.1, BUN 35, creatinine 1.9. CK-MB is 0.7. Troponin 0.208. ProBNP is significantly elevated at 10,489. Echocardiogram: LV function appeared normal with EF 55%. Chest x-ray: No acute cardiopulmonary process. Blood cultures are pending. HISTORY AND PHYSICAL [id number] STEW AARON ASSESSMENT AND PLAN: 1. Congestive heart failure with elevated enzymes, abnormal EKG. We will consult cardiology. For congestive heart failure, we will cautiously diurese. 2. Leukocytosis, febrile illness, nonhealing wound of left foot. Cultures are pending. Continue antibiotics. Await culture results. 3. Anemia. Stool for occult blood was likely related to wound VAC long-term, monitor. 4. Chronic kidney disease, improved from prior. TRANSINT:[id number] Voice Confirmation ID: [id number] DOCUMENT ID: [id number] BIRGIT ORONA DO at 0737 CC: [id number] DICTATION DATE: 02/23/17 1345 ENVIRONMENTAL ENGINEERING MANAGER: 02/23/17 1525 ADM IN [facility] [address] [place] [address]
--- NOTE | ~2017-02-22 | HEMODYNAMI ---
PATIENT:STEW AARON MEDICAL RECORD: [id number] : 49 LOCATION:D. [id number] ADMISSION DATE: 02/22/17 Generatedon:02/27/201713:59 Patient name: STEW AARON Patient #: [id number] SSN: DO B: 1945 Date of study: 02/27/2017 Page: Of Hemodynamic Procedure Report Patient Data Patient Demographics Procedure consent was obtained First Name: STEW Gender: Male Last Name: GALEN : 1945 Middle Initial: D Age: 71 year(s) Patient #: [id number] Race: Additional ID: [id number] Contact details Address: [address] [place] [address] State: [place] City: [place] Zip code: [address] Past Medical History Allergies: No known allergies Admission Admission Data Admission Date: 02/22/2017 Admission Time: 23:10 Admit Source: Other Room #: D.2228 Lab Results Lab Result Date: 02/27/2017 Lab Result Time: 4:46 Biochemistry Name Units Result Min Max BUN mg/dl 46 --(----)-* 7 18 Creatinine mg/dl 2.1 --(----)-* 0.6 1.3 CBC Name Units Result Min Max Hematocrit % 30.3 *-(----)-- 42 54 Hemoglobin g/dl 9.5 *-(----)-- 13.5 17.5 Procedure Procedure Types Cath Procedure Diagnostic Procedure C [facility] w/Coronaries PCI Procedure Coronary Stent Coronary Stent Initial Miscellaneous Procedures Moderate Sedation up to 15 minutes Procedure Description Procedure Date Procedure Date: 02/27/2017 Procedure Start Time: 13:40 Procedure End Time: 13:58 Procedure Staff Name Function Enrique Brock MD Performing Physician Ba Fowler RT Monitor Maria G Woods RT Scrub Carrie Hall RN Nurse Roselia Stahl RN Nurse Procedure Data Cath Procedure Fluoroscopy Diagnostic fluoroscopy Total fluoroscopy Time: 2.3 time: 2.3 min min Diagnostic fluoroscopy Total fluoroscopy dose: 726 dose: 726 mGy mGy Contrast Material Contrast Material Type Amount (ml) Isovue 300 40 Entry Location Entry Primary Successful Side Size Upsize Upsize Entry Closure Succes sful Closure Location (Fr) 1 (Fr) 2 (Fr) Remarks Device Remarks Femoral Right 5 Fr 6 Fr Exoseal artery Short Estimated blood loss: 10 ml Diagnostic catheters Device Type Used For End Catheter Placement MULTIPACK Pigtail 5 Fr Procedure catheter MULTIPACK JL 4.0 5Fr Procedure catheter MULTIPACK 3DRC 5Fr Procedure catheter Procedure Complications No complications Procedure Medications Medication Administration Route Dosage Oxygen NC 2 l/min Lidocaine 2% added to field 20 Heparin Flush Bag added to field 2 bags (1000units/500ml NS) 0.9% NaCl I.V. 300 ml/hr Versed I.V. 0.5 mg Fentanyl I.V. 25 mcg Heparin Bolus I.V. 4000 units Hemodynamics Rest HGB: 9.5 (g/dl) Heart Rate: 66 (bpm) Snapshots Pre Cath Intra NCS Post Cath Vital Signs Time Heart Resp SPO2 etCO2 NIBP (mmHg) Rhythm Pain Sedation Rate (ipm) (%) (mmHg) Status Level (bpm) 13:26:03 65 15 98 0 148/73(118) NSR 0 (11) 9(A) , No pain 13:30:29 64 16 98 33.1 156/75(116) NSR 0 (11) 9(A) , No pain 13:34:58 63 14 99 41.4 164/75(118) NSR 0 (11) 9(A) , No pain 13:39:16 62 14 98 40.6 136/61(109) NSR 0 (11) 9(A) , No pain 13:43:42 62 13 98 40.6 137/58(108) NSR 0 (11) 9(A) , No pain 13:48:08 70 15 98 42.1 132/59(100) NSR 0 (11) 9(A) , No pain 13:52:26 61 15 97 37.6 104/46(69) NSR 0 (11) 9(A) , No pain 13:56:46 39.9 No Cuff NSR 0 (11) 9(A) , No pain Medications Time Medication Route Dose Verified Delivered Reason Notes Effectiveness by by 13:40:16 Oxygen NC 2 Enrique Buffie used for l/min Vinod Hall RN procedure 13:40:23 Lidocaine 2% added 20ml Enrique Enrique for local to vial Vinod Brock MD anesthetic field 13:40:28 Heparin Flush added 2 Enriquemariana Nunez used for Bag to bags Vinod Brock MD procedure (1000units/500ml field NS) 13:40:37 0.9% NaCl I.V. 300 Enriquemariana Restrepoie Per physician ml/hr Vinod Hall RN 13:40:46 Versed I.V. 0.5 Enrique Buffie for sedation pt mg Vinod Hall RN appears drowsy upon arrival to cardiac cath tech, will answer questions when asked. 13:40:54 Fentanyl I.V. 25 Enrique Buffie for sedation mcg Vinod Hall RN 13:44:39 Heparin Bolus I.V. 4000 Enrique Buffie for verifi ed units Vinod Hall RN anticoagulation with dr brock Procedure Log Time Note 12:57:41 Informed consent obtained and on chart 12:59:01 Admit Source: Other 12:59:07 Time tracking: Regular hours 12:59:11 Plan of Care:Hemodynamics will remain stable., Cardiac rhythm will remain stable., Comfort level will be maintained., Respiratory function will remain adequate., Patient/ family verbilizes understanding of procedure., Procedure tolerated without complication., Recovers from procedure without complications.. 13:00:35 Ba Fowler RT(R) sent for patient. Start room use. 13:24:46 Patient received from Med/Surg to CCL 2 Alert and oriented. Tansferred to table in Supine position. 13:24:47 Warm blankets applied, and yvonne hugger turned on for patient comfort. 13:24:47 Correct patient and procedure confirmed by team. 13:24:48 ECG and BP/O2 sat monitors applied to patient. 13:24:49 Full Disclosure recording started 13:24:50 Vital chart was started 13:26:51 Baseline sample Acquired. 13:26:57 Rhythm: sinus rhythm 13:27:10 H&P Date Dictated: 02/24/2017 Within 30 days and on chart.. 13:27:12 Pre-procedure instructions explained to patient. 13:27:12 Pre-op teaching completed and patient verbalized understanding. 13:27:15 Family unavailable. 13:27:17 Patient NPO since Midnight. 13:27:23 Patient allergic to No known allergies 13:28:10 Is the patient allergic to Iodine/contrast media? No. 13:28:10 Is patient on blood thinner?Yes 13:28:12 ACC The patient was administered the following blood thiners within the last 24 hours: ACCPlavix 13:28:14 Patient diabetic? Yes. 13:28:15 If diabetic: On Metformin? No 13:28:22 Previous problem with sedation/anesthesia? No ? 13:28:23 Snore? No 13:28:24 Sleep apnea? No 13:28:25 Deviated septum? No 13:28:26 Opens mouth fully? Yes 13:28:27 Sticks out tongue? Yes 13:28:28 Airway obstruction? No ? 13:28:31 Dentures? Yes out 13:28:40 Pre procedure: right dorsailis pedis pulse 1+ Palpable, but thready & weak; easily obliterated 13:28:41 Patient pain scale 0/10 ?. 13:29:28 Lab Result : BUN 46 mg/dl 13:29:28 Lab Result : Creatinine 2.1 mg/dl 13:29:28 Lab Result : Hemoglobin 9.5 g/dl 13:29:28 Lab Result : Hematocrit 30.3 % 13:29:32 Lab results completed and on chart. 13:29:36 Right groin area was prepped with chlora-prep and draped in sterile fashion 13:29:37 Alarms reviewed by R. N. 13:29:38 Sharps counted by scrub and verified by R.N. 13:29:41 Use device set Femoral Dx 13:29:43 ACIST Syringe (94389) opened to sterile field. 13:29:45 Medline Cath Pack ([id number]) opened to sterile field. 13:29:45 Bag Decanter () opened to sterile field. 13:29:47 ACIST Hand Control (91504) opened to sterile field. 13:29:47 ACIST Manifold (02341) opened to sterile field. 13:29:50 Tegaderm 4 x 4 (1626W) opened to sterile field. 13:29:51 PERCUTANEOUS ENTRY 19GA needle opened to sterile field. 13:29:53 DIAGNOSTIC WIRE .035 260cm J wire (264764) opened to sterile field. 13:29:54 SHEATH 5FR [place] (JQC750) opened to sterile field. 13:29:55 DIAGNOSTIC Multipack 5Fr catheter set (UE9183) opened to sterile field. 13:34:28 IV Right upper arm D/C'd due to infiltration. 13:34:45 IV started by Carrie Hall RN inleft forearm with a 22 gauge IV catheter with 0.9% NaCl at KVO. 13:34:59 IV CATHETER 22g opened to sterile field. 13:35:04 IV Extension Set opened to sterile field. 13:37:38 Physician arrived 13:37:39 --------ALL STOP TIME OUT------ 13:37:40 Final Timeout: patient, procedure, and site verified with staff and physician. All members of the team are in agreement. 13:37:41 Right groin site verified by team. 13:37:43 Physical assessment completed. ASA score P 2 - A patient with mild systemic disease as per Enrique Brock MD. 13:37:47 Sedation plan: IV Moderate Sedation Medication:Versed, Fentanyl 13:39:53 Zero performed for pressure channel P1 13:40:00 Zero performed for pressure channel P1 13:40:02 Zero performed for pressure channel P1 13:40:16 Oxygen 2 l/min NC was administered by Carrie Hall RN; used for procedure; 13:40:23 Lidocaine 2% 20ml vial added to field was administered by Enrique Brock MD; for local anesthetic; 13:40:28 Heparin Flush Bag (1000units/500ml NS) 2 bags added to field was administered by Enrique Brock MD; used for procedure; 13:40:37 0.9% NaCl 300 ml/hr I.V. was administered by Carrie Hall RN; Per physician; 13:40:46 Versed 0.5 mg I.V. was administered by Carrie Hall RN; for sedation; pt appears drowsy upon arrival to cardiac cath tech, will answer questions when asked. 13:40:52 Procedure started. 13:40:54 Fentanyl 25 mcg I.V. was administered by Carrie Hall RN; for sedation; 13:40:55 Local anesthetic to right femoral artery with Lidocaine 2% by Enrique Brock MD.INITIAL ACCESS ONLY 13:41:06 A 5 Fr sheath was inserted into the Right Femoral artery 13:41:15 A MULTIPACK Pigtail 5 Fr catheter was advanced over the wire and used for Procedure. 13:41:22 LV gram done using ADAME 13:41:25 Injector settings: Ml/sec: 10, Volume: 20, 13:41:29 EF : 60 % 13:41:31 Catheter exchanged over wire. 13:41:36 A MULTIPACK JL 4.0 5Fr catheter was advanced over the wire and used for Procedure. 13:42:00 LCA angiography performed. 13:43:07 INFLATOR Merit BasixCompak (EE3277) opened to sterile field. 13:43:08 SHEATH 6FR [place] (LMF861) opened to sterile field. 13:43:14 Catheter exchanged over wire. 13:43:25 A MULTIPACK 3DRC 5Fr catheter was advanced over the wire and used for Procedure. 13:43:57 RCA angiography performed. 13:44:39 Heparin Bolus 4000 units I.V. was administered by Carrie Hall RN; for anticoagulation; verified with dr brock 13:45:10 Catheter removed. 13:45:59 GUIDE 6FR XBLAD 3.5 catheter ([id number]) opened to sterile field. 13:46:24 Sheath upsized to a 6 Fr Short. 13:46:32 6 Fr xblad 3.5 guide catheter was inserted over the wire 13:46:53 WHISPER 190cm wire ([id number]) opened to sterile field. 13:47:31 whiper wire advanced. 13:47:32 Wire advanced across lesion. 13:48:16 Inflation Number: 1 A INTEGRITY RX 2.75 x 18 stent ([id number]) was prepped and advanced across the Mid LAD. The stent was deployed at 15 GABY for 0:10 (min:sec). 13:48:20 Stent catheter was removed intact over wire. 13:48:21 Wire removed. 13:48:21 Guide catheter removed. 13:48:26 EXOSEAL 6Fr (EX600) opened to sterile field. 13:48:34 Sheath removed intact; hemostasis achieved with Exoseal to the Right Femoral artery. 13:48:35 Procedure ended.(Physican Out) 13:53:42 Fluoroscopy time 02.30 minutes. 13:53:46 Fluoroscopy dose: 726 mGy 13:53:46 Flurop Dose total: 726 13:53:49 Contrast amount:Isovue 300 40ml. 13:53:50 Sharps counted by scrub and verified by R.N. 13:53:52 Insertion/operative site no bleeding no hematoma. 13:53:54 Post-op/insertion site Right Femoral artery dressed using a 4 x 4 and Tegaderm. 13:53:58 Post right femoral artery:stable, soft, clean and dry 13:53:59 Post Procedure Pulses reassessed and unchanged 13:54:02 Post-procedure physical assessment completed. ASA score P 2 - A patient with mild systemic disease as per Enrique Brock MD. 13:54:04 Post procedure rhythm: unchanged. 13:54:22 Estimated blood loss: 10 ml 13:54:24 Post procedure instruction explained to patient.Patient verbalizes understanding. 13:54:34 Patient needs reinforcement of post procedure teaching. 13:54:42 Procedure type changed to Cath procedure, Diagnostic procedure, LHC, LHC w/Coronaries, PCI procedure, Coronary Stent, Coronary Stent Initial, Miscellaneous Procedures, Moderate Sedation up to 15 minutes 13:58:06 Procedure and supply charges have been captured, reviewed, submitted and are correct. 13:58:09 Procedure Complication : No complications 13:58:12 Vital chart was stopped 13:58:12 See physician's report for complete and final results. 13:58:13 Report given to Pre/Post Procedure Room. 13:58:16 Patient transfered to Pre/Post Procedure Room with Stretcher. 13:58:19 Procedure ended. 13:58:19 Full Disclosure recording stopped 13:58:25 End room use (Document Last) Intervention Summary Intervention Notes Time ActionType Lesion and Equipment Action# Pressure Duration Attributes Used 13:48:16 Place stent Mid LAD INTEGRITY RX 1 15 00:10 2.75 x 18 stent ([id number]) Device Usage Item Name Manufacture Quantity Catalog Hospital Part Current Minimal Lot# / Number Charge Number Stock Stock Serial# Code ACIST Acist 1 19960 768373 308098 622470 20 Syringe [employer] (59755) Nano Terra Inc Medline Cath Cardinal 1 [id number] 839690 80811 027672 5 Pack [employer]ics ([id number]) Bag Decanter Microtek 1 676874 42401 916633 5 (2002S) Medical Inc. ACIST Hand Acist 1 94030 663038 741287 008194 5 Control Medical (98158) Systems Inc ACIST Acist 1 46404 445292 909714 559110 5 Manifold Medical (78737) Systems Inc Tegaderm 4 x 3M 1 1626W 689720 824657 166815 5 4 (1626W) PERCUTANEOUS [facility] 1 X75018 337396 980826 5 ENTRY 19GA needle DIAGNOSTIC St Med 1 051998 578544 715968 092025 30 WIRE .035 260cm J wire (273977) SHEATH 5FR Terumo 1 CDS519 358542 908555 511663 40 [place] (TRG470) DIAGNOSTIC Cardinal 1 CS6175 287991 14392 675433 30 Multipack Health 5Fr catheter set (PQ0651) IV CATHETER B. Sharp 1 8274257-17 576157 482262 345157 5 22g IV Extension Hospira 1 52225-33 636646 97676 585160 5 Set MULTIPACK Cardinal 1 986921 5 Pigtail 5 Fr Health catheter MULTIPACK JL Cardinal 1 489027 5 4.0 5Fr Health catheter INFLATOR Merit 1 TX2858 836373 974691 545611 15 [employer] BasixCompak (DL3980) SHEATH 6FR Terumo 1 MLK082 471506 224140 347959 40 [place] (CEH343) MULTIPACK Cardinal 1 691447 5 3DRC 5Fr Health catheter GUIDE 6FR Cardinal 1 97749370 976064 568341 303207 10 XBLAD 3.5 Health catheter (11462430) WHISPER Rivear 1 [id number] 764340 555406 947525 5 190cm wire Vascular (2359222FE) INTEGRITY RX Medtronic 1 [id number] 031651 517042 471185 5 [id number] 2.75 x 18 stent ([id number]) EXOSEAL 6Fr Cardinal 1 EX600 428506 471019 585356 10 (EX600) Health Signature Audit [place] Stage Time Signature Unsigned Intra-Procedure 02/27/2017 Ba Fowler 1:58:59 PM RT(R) Signatures Monitor : Ba Fowler RT Signature : Date : Time : [address] [place] [address]
--- NOTE | ~2017-02-22 | EC ---
PATIENT:STEW AARON DATE OF SERVICE: 02/22/17 SEX: M MEDICAL RECORD: [id number] DATE OF : [birth year] LOCATION:[facility] AGE OF PATIENT: 71 ADMISSION DATE: 02/22/17 REFERRING PHYSICIAN: INTERPRETING PHYSICIAN: EDWIN CHAVEZ MD ECHOCARDIOGRAM REPORT ECHO CHARGES 4 ECHO COMPLETE CLINICAL DIAGNOSIS: CHF ECHOCARDIOGRAPHIC MEASUREMENTS (adult normal given) AC root (d.<3.7cm) 4.0 cm LV Septum d (<1.2 cm> 1.6 cm Valve Excursion 2.5 cm LV Septum (systole) 2.5 cm Left Atria (s.<4.0cm> 3.7 cm LVPW d(<1.2cm) 1.4 cm RV (d.<2.3cm) 2.2 cm LVPW (sytole) 2.1 cm LV diastole(<5.6CM) 5.9 cm MV E-F(>70mm/sec) cm LV systole 3.4 cm LVOT Diameter 2.2 cm MV exc.(>10mm) cm Est.ejection fraction (50-75%) % Pericardial Effusion N DOPPLER: LVIT cm/sec A 74.0 cm/sec E 118 cm/sec LA cm/sec RVSP 36.1 mmHg LVOT 136 cm/sec AOP1/2T m/s Asc. Ao 196 cm/sec RVOT 132 cm/sec RA cm/sec PA 124 cm/sec AV Gradient Peak 15.3 mmHg AV Mean 7.8 mmHg AV Area 2.4 cm MV Gradient Peak 6.5 mmHg MV Mean 2.7 mmHg MV Area cm COMMENTS: External Grinder Tool: Ashkan ARAGONOE Refrigerator Assembler: 3 Dr. Smith TAPE# PACS DATE OF SERVICE: 02/23/2017 Adequate 2D echo, color flow and spectral Doppler, and M-mode. LVH is present. LV internal dimensions are upper limits of normal 5.9 cm. LV function appears normal; however, estimated EF greater than 55%. Aortic valve sclerosis without stenosis by Doppler interrogation. The left atrium is normal at 3.7 cm. Mitral valve shows no prolapse. Trace MR. Right-sided chamber size is grossly normal. Trace TR. TRANSINT:[id number] Voice Confirmation ID: [id number] DOCUMENT ID: [id number] ECHOCARDIOGRAM REPORT [id number] STEW AARON GREGORY A MD at 1517 CC: [id number] DICTATION DATE: 02/23/17 1129 DIRECTOR MACHINE: 02/23/17 1142 ADM IN [facility] [address] [place] [id number]
--- NOTE | ~2017-02-22 | OP ---
PATIENT NAME: STEW AARON MEDICAL RECORD: [id number] :49 LOCATION:D.M2 D.2108 ADMISSION DATE:02/22/17 SURGEON: DOMINIC LYNCH MD DATE OF OPERATION: 02/27/2017 DATE OF SERVICE: 02/27/2017 PROCEDURES: 1. PTCA stent LAD. 2. Left heart catheterization. 3. Selective coronary angiography. 4. Left ventriculogram. INDICATION: Angina and coronary artery disease. PROCEDURE IN DETAIL: After informed consent was obtained and after a detailed explanation of risks, benefits as well as alternative therapies, the patient elected to proceed with angiogram and angioplasty. The right radial area was prepped and draped in normal sterile fashion. The right radial artery was cannulated via modified Seldinger technique with placement of a 6-Bhutanese sheath. All catheters exchanged through this sheath. FINDINGS: Left ventriculogram was performed in the standard 30-degree ADAME view, reveals good cardiac wall motion throughout all segments. Overall ejection fraction estimated at 60%. SELECTIVE CORONARY ANGIOGRAPHY: 1. Left main showed no significant angiographic disease. 2. Left anterior descending has a 75% stenosis in the mid vessel. 3. Left circumflex is totally occluded. Distal circumflex fills via left to left collaterals. 4. Right coronary has mild irregularities, but no flow-limiting stenosis. PTCA STENT OF THE LAD: The stent used is a 2.75 x 18 mm Integrity. Result was 0% residual stenosis. OVERALL IMPRESSION: Successful percutaneous transluminal coronary angioplasty stent of the left anterior descending going from 75% initial stenosis to 0% residual stenosis. TRANSINT:[id number] Voice Confirmation ID: [id number] DOCUMENT ID: [id number] DOMINIC LYNCH MD at 1546 CC: [id number] DICTATION DATE: 02/27/17 1352 WANT AD CLERK: 02/27/17 1520 ADM IN [place] [id number] [place] [address]
[2017-02-22 17:37] LABS: BASOPHILS 0.1 % (0-2); EOSINOPHILS 0 % (0-7); HEMATOCRIT 27.2 % (42.0-54.0); HEMOGLOBIN 8.7 g/dL (13.5-17.5); IMMATURE GRANULOCYTES 0.3 % (0-5); LYMPHOCYTES 9.2 % (15-50); MCH 27.8 pg (26.0-34.0); MEAN PLATELET VOLUME 10.3 fL (7.4-10.4); MONOCYTES 5.9 % (2-11); NEUTROPHILS 84.5 % (40-80); RBC 3.13 10x6/uL (4.20-6.10); RDW 13.8 % (11.5-14.5); WBC 12.9 10x3/uL (4.8-10.8)
[2017-02-22 17:40] LABS: MCV 86.9 fL (80.0-100.0); PLATELET COUNT 241 10x3/uL (130-400)
[2017-02-22 19:02] LABS: ALBUMIN 2.5 g/dL (3.4-5.0); ALKALINE PHOSPHATASE 67 U/L (46-116); ALT (SGPT) 9 U/L (10-68); BILIRUBIN - TOTAL 0.37 mg/dL (0.2-1.3); CALC OSMOLALITY 288 mosm/kg (275-300); CALCIUM 8.7 mg/dL (8.5-10.1); CARBON DIOXIDE 26.1 mmol/L (21.0-32.0); CHLORIDE - SERUM 102 mmol/L (98-107); CKMB 0.7 U/L (0.0-3.6); CREATINE KINASE 62 UL (21-232); CREATININE - SERUM 1.9 mg/dL (0.6-1.3); GLUCOSE 190 mg/dL (74-106); PRO BNP 10489 pg/mL (0-125); PROTEIN - SERUM 7.2 g/dL (6.4-8.2); SODIUM 138 mmol/L (136-145); UREA NITROGEN 35 mg/dL (7-18); eGFR NON AFRICAN AMERICAN 37 mL/min (90-120)
[2017-02-22 19:03] LABS: POTASSIUM - SERUM 4.2 mmol/L (3.5-5.1)
[2017-02-22 19:06] LABS: TROPONIN-I 0.208 ng/mL (0.000-0.060)
[2017-02-23] MEDS ORDERED: ACIDOPHILUS LAC1 CAP PO (00:23)
[2017-02-23] MEDS ORDERED: VIBRAMYCIN 100100 MG PO (00:24)
[2017-02-23] MEDS ORDERED: SENNA8.6 MG PO (00:34)
[2017-02-23] MEDS ORDERED: ZOFRAN4 MG PO (00:37)
[2017-02-23] MEDS ORDERED: ULTRAM50 MG PO (00:40)
[2017-02-23] MEDS ORDERED: ACETAMINOPHEN325 MG PO (00:42)
[2017-02-23 00:44] VITALS: BP 140/56; BMI 32.9
[2017-02-23 04:00] VITALS: BP 146/61
[2017-02-23 09:33] VITALS: BP 149/57
[2017-02-23 12:23] VITALS: BMI 32.8
[2017-02-23 13:03] VITALS: BP 152/60
[2017-02-23 16:32] VITALS: BP 142/60
[2017-02-23 20:00] VITALS: BP 145/68
[2017-02-24 04:00] VITALS: BP 145/70
[2017-02-24 09:00] VITALS: BP 146/52
[2017-02-24 12:25] VITALS: BP 167/63
[2017-02-24 16:15] VITALS: BP 122/62
[2017-02-24 20:49] VITALS: BP 118/44
[2017-02-24 23:44] VITALS: BP 142/54
[2017-02-25 08:10] VITALS: BP 137/57
[2017-02-25 09:20] LABS: BASOPHILS 0.3 % (0-2); EOSINOPHILS 0 % (0-7); HEMATOCRIT 29.7 % (42.0-54.0); HEMOGLOBIN 9.5 g/dL (13.5-17.5); IMMATURE GRANULOCYTES 0.3 % (0-5); LYMPHOCYTES 25.1 % (15-50); MCH 28.2 pg (26.0-34.0); MCV 88.1 fL (80.0-100.0); MEAN PLATELET VOLUME 10.3 fL (7.4-10.4); MONOCYTES 9.5 % (2-11); NEUTROPHILS 64.8 % (40-80); RBC 3.37 10x6/uL (4.20-6.10); RDW 13.9 % (11.5-14.5); WBC 9.4 10x3/uL (4.8-10.8)
[2017-02-25 09:25] LABS: PLATELET COUNT 313 10x3/uL (130-400)
[2017-02-25 09:45] LABS: ALBUMIN 2.6 g/dL (3.4-5.0); ANION GAP 9.7 mmol/L (8-16); BILIRUBIN - TOTAL 0.25 mg/dL (0.2-1.3); CALCIUM 8.2 mg/dL (8.5-10.1); CARBON DIOXIDE 33.7 mmol/L (21.0-32.0); CREATININE - SERUM 1.9 mg/dL (0.6-1.3); POTASSIUM - SERUM 3.4 mmol/L (3.5-5.1); PROTEIN - SERUM 7.2 g/dL (6.4-8.2)
[2017-02-25 16:42] VITALS: Ht 188 cm; Wt 113.7 kg
[2017-02-25 17:05] VITALS: BP 141/66
[2017-02-25 20:00] VITALS: BP 137/54
[2017-02-26] VITALS: BP 124/54
[2017-02-26 04:00] VITALS: BP 137/45
[2017-02-26 04:44] LABS: BASOPHILS 0.2 % (0-2); EOSINOPHILS 0 % (0-7); HEMATOCRIT 29.6 % (42.0-54.0); HEMOGLOBIN 9.4 g/dL (13.5-17.5); IMMATURE GRANULOCYTES 0.2 % (0-5); LYMPHOCYTES 25.4 % (15-50); MCH 27.9 pg (26.0-34.0); MCHC 31.8 g/dL (31.0-37.0); MCV 87.8 fL (80.0-100.0); MEAN PLATELET VOLUME 10.2 fL (7.4-10.4); MONOCYTES 9.6 % (2-11); NEUTROPHILS 64.6 % (40-80); PLATELET COUNT 328 10x3/uL (130-400); RBC 3.37 10x6/uL (4.20-6.10); RDW 13.8 % (11.5-14.5); WBC 8.2 10x3/uL (4.8-10.8)
[2017-02-26 05:06] LABS: ALBUMIN 2.4 g/dL (3.4-5.0); ANION GAP 8.6 mmol/L (8-16); BILIRUBIN - TOTAL 0.3 mg/dL (0.2-1.3); CALCIUM 8.6 mg/dL (8.5-10.1); CARBON DIOXIDE 32.5 mmol/L (21.0-32.0); CREATININE - SERUM 2.1 mg/dL (0.6-1.3); POTASSIUM - SERUM 3.1 mmol/L (3.5-5.1)
[2017-02-26 05:59] LABS: ERYTHROCYTE SEDIMENTATION RATE 86 mm/hr (0-20)
[2017-02-26 08:22] VITALS: BP 124/65
[2017-02-26 11:53] VITALS: BP 149/62
[2017-02-26 16:19] VITALS: BP 117/53
[2017-02-26 20:00] VITALS: BP 136/52
[2017-02-27] VITALS: BP 101/49
[2017-02-27 04:00] VITALS: BP 160/60
[2017-02-27 04:56] LABS: BASOPHILS 0.3 % (0-2); EOSINOPHILS 0 % (0-7); HEMATOCRIT 30.3 % (42.0-54.0); HEMOGLOBIN 9.5 g/dL (13.5-17.5); IMMATURE GRANULOCYTES 0.4 % (0-5); LYMPHOCYTES 24.9 % (15-50); MCH 27.9 pg (26.0-34.0); MCHC 31.4 g/dL (31.0-37.0); MCV 88.9 fL (80.0-100.0); MEAN PLATELET VOLUME 10.3 fL (7.4-10.4); MONOCYTES 8.5 % (2-11); NEUTROPHILS 65.9 % (40-80); PLATELET COUNT 343 10x3/uL (130-400); RBC 3.41 10x6/uL (4.20-6.10)
[2017-02-27 05:19] LABS: ALBUMIN 2.5 g/dL (3.4-5.0); ANION GAP 10.9 mmol/L (8-16); BILIRUBIN - TOTAL 0.3 mg/dL (0.2-1.3); CALCIUM 8.3 mg/dL (8.5-10.1); CARBON DIOXIDE 32.5 mmol/L (21.0-32.0); CREATININE - SERUM 2.1 mg/dL (0.6-1.3); POTASSIUM - SERUM 3.4 mmol/L (3.5-5.1); PROTEIN - SERUM 7.2 g/dL (6.4-8.2)
[2017-02-27 08:18] VITALS: BP 134/41
[2017-02-27 11:40] VITALS: BP 151/63
[2017-02-27 21:04] VITALS: BP 115/43
[2017-02-28 00:52] VITALS: BP 117/67
[2017-02-28 05:10] LABS: BASOPHILS 0.3 % (0-2); EOSINOPHILS 0 % (0-7); HEMATOCRIT 29.2 % (42.0-54.0); HEMOGLOBIN 9.2 g/dL (13.5-17.5); IMMATURE GRANULOCYTES 0.3 % (0-5); LYMPHOCYTES 23.4 % (15-50); MCHC 31.5 g/dL (31.0-37.0); MCV 88.8 fL (80.0-100.0); MEAN PLATELET VOLUME 10.2 fL (7.4-10.4); MONOCYTES 7.2 % (2-11); NEUTROPHILS 68.8 % (40-80); PLATELET COUNT 304 10x3/uL (130-400); RBC 3.29 10x6/uL (4.20-6.10); RDW 14.3 % (11.5-14.5); WBC 9.3 10x3/uL (4.8-10.8)
[2017-02-28 05:21] VITALS: BP 110/47
[2017-02-28 05:35] LABS: ALBUMIN 2.5 g/dL (3.4-5.0); ANION GAP 10.9 mmol/L (8-16); BILIRUBIN - TOTAL 0.32 mg/dL (0.2-1.3); CALCIUM 8.1 mg/dL (8.5-10.1); CARBON DIOXIDE 33.4 mmol/L (21.0-32.0); POTASSIUM - SERUM 3.3 mmol/L (3.5-5.1)
[2017-02-28 05:39] LABS: CREATININE - SERUM 2.9 mg/dL (0.6-1.3)
[2017-02-28 08:00] VITALS: BP 120/39
[2017-02-28 12:00] VITALS: BP 112/65
[2017-02-28 20:00] VITALS: BP 141/48
[2017-03-01] VITALS: BP 136/57
[2017-03-01 04:00] VITALS: BP 127/46
[2017-03-01 05:03] LABS: BASOPHILS 0.2 % (0-2); EOSINOPHILS 0 % (0-7); HEMATOCRIT 29.1 % (42.0-54.0); HEMOGLOBIN 9.4 g/dL (13.5-17.5); IMMATURE GRANULOCYTES 0.5 % (0-5); LYMPHOCYTES 16.5 % (15-50); MCH 28.2 pg (26.0-34.0); MCHC 32.3 g/dL (31.0-37.0); MCV 87.4 fL (80.0-100.0); MEAN PLATELET VOLUME 10.2 fL (7.4-10.4); MONOCYTES 6.6 % (2-11); NEUTROPHILS 76.2 % (40-80); PLATELET COUNT 331 10x3/uL (130-400); RBC 3.33 10x6/uL (4.20-6.10); RDW 13.8 % (11.5-14.5); WBC 10.1 10x3/uL (4.8-10.8)
[2017-03-01 05:35] LABS: ALBUMIN 2.5 g/dL (3.4-5.0); ANION GAP 12.5 mmol/L (8-16); BILIRUBIN - TOTAL 0.2 mg/dL (0.2-1.3); CALCIUM 8.4 mg/dL (8.5-10.1); CREATININE - SERUM 2.5 mg/dL (0.6-1.3); POTASSIUM - SERUM 3.5 mmol/L (3.5-5.1); PROTEIN - SERUM 7.1 g/dL (6.4-8.2)
[2017-03-01 08:00] VITALS: BP 136/44
[2017-03-01 12:00] VITALS: BP 103/43
[2017-03-01 16:00] VITALS: BP 155/47
[2017-03-01 20:00] VITALS: BP 152/72
[2017-03-02] VITALS: BP 124/35
[2017-03-02 04:00] VITALS: BP 127/43
[2017-03-02 04:56] LABS: BASOPHILS 0.4 % (0-2); EOSINOPHILS 0 % (0-7); HEMATOCRIT 31.1 % (42.0-54.0); HEMOGLOBIN 9.7 g/dL (13.5-17.5); IMMATURE GRANULOCYTES 0.5 % (0-5); LYMPHOCYTES 31.1 % (15-50); MCH 27.6 pg (26.0-34.0); MCHC 31.2 g/dL (31.0-37.0); MCV 88.6 fL (80.0-100.0); MEAN PLATELET VOLUME 10.1 fL (7.4-10.4); MONOCYTES 8.3 % (2-11); NEUTROPHILS 59.7 % (40-80); PLATELET COUNT 328 10x3/uL (130-400); RBC 3.51 10x6/uL (4.20-6.10); RDW 14.1 % (11.5-14.5)
[2017-03-02 05:11] LABS: ALBUMIN 2.6 g/dL (3.4-5.0); ANION GAP 10.6 mmol/L (8-16); BILIRUBIN - TOTAL 0.3 mg/dL (0.2-1.3); CALCIUM 8.8 mg/dL (8.5-10.1); CREATININE - SERUM 1.7 mg/dL (0.6-1.3); POTASSIUM - SERUM 3.6 mmol/L (3.5-5.1); PROTEIN - SERUM 7.3 g/dL (6.4-8.2)
[2017-03-02 07:58] VITALS: BP 144/63
[2017-03-02 12:22] VITALS: BP 144/60
[2017-03-02 16:35] VITALS: BP 158/69
[2017-03-02 22:39] VITALS: BP 121/47
[2017-03-03 06:16] VITALS: BP 154/53
[2017-03-03 07:54] VITALS: BP 137/48
[2017-03-03 12:15] VITALS: BP 135/51
[2017-03-03 15:26] VITALS: BP 111/54
[2017-03-03 21:12] VITALS: BP 140/55
[2017-03-04 00:48] VITALS: BP 142/57
[2017-03-04 05:33] VITALS: BP 113/50
[2017-03-04 07:46] VITALS: BP 145/54
[2017-03-04 12:51] VITALS: BP 139/44
[2017-03-04 15:48] VITALS: BP 164/60
[2017-03-04 21:02] VITALS: BP 155/58
[2017-03-05 00:13] VITALS: BP 142/49
[2017-03-05 08:14] VITALS: BP 160/47
[2017-03-05 12:09] VITALS: BP 146/46
[2017-03-05 15:23] LABS: AEROBE ID Final report (())
[2017-03-05 16:05] VITALS: BP 168/53
[2017-03-05 20:18] VITALS: BP 166/62
[2017-03-06 00:27] VITALS: BP 148/68
[2017-03-06 04:50] VITALS: BP 118/36
[2017-03-06 05:31] LABS: BASOPHILS 0.3 % (0-2); EOSINOPHILS 0.2 % (0-7); HEMATOCRIT 29.3 % (42.0-54.0); HEMOGLOBIN 9.2 g/dL (13.5-17.5); IMMATURE GRANULOCYTES 0.2 % (0-5); LYMPHOCYTES 25.7 % (15-50); MCH 27.9 pg (26.0-34.0); MCHC 31.4 g/dL (31.0-37.0); MCV 88.8 fL (80.0-100.0); MEAN PLATELET VOLUME 10.5 fL (7.4-10.4); MONOCYTES 6.9 % (2-11); NEUTROPHILS 66.7 % (40-80); PLATELET COUNT 317 10x3/uL (130-400); RDW 13.7 % (11.5-14.5); WBC 8.9 10x3/uL (4.8-10.8)
[2017-03-06 05:45] LABS: ALBUMIN 2.5 g/dL (3.4-5.0); ANION GAP 11.3 mmol/L (8-16); BILIRUBIN - TOTAL 0.19 mg/dL (0.2-1.3); CALCIUM 8.6 mg/dL (8.5-10.1); CARBON DIOXIDE 28.2 mmol/L (21.0-32.0); CREATININE - SERUM 1.5 mg/dL (0.6-1.3); POTASSIUM - SERUM 3.5 mmol/L (3.5-5.1); PROTEIN - SERUM 6.9 g/dL (6.4-8.2)
[2017-03-06 08:16] VITALS: BP 124/36
[2017-03-06 14:12] VITALS: BP 182/70
[2017-03-06 15:20] VITALS: BP 200/45
[2017-03-06 21:16] VITALS: BP 158/65
[2017-03-07 00:23] VITALS: BP 130/52
[2017-03-07 05:21] VITALS: BP 123/66
[2017-03-07 08:30] VITALS: BP 128/49
[2017-03-07 11:47] VITALS: BP 164/50
[2017-03-07 16:50] VITALS: BP 168/65
[2017-03-07 20:00] VITALS: BP 150/61
[2017-03-08 04:00] VITALS: BP 163/69
[2017-03-08 07:54] VITALS: BP 115/56
[2017-03-08 12:46] VITALS: BP 142/59
[2017-03-08 16:11] VITALS: BP 170/67
[2017-03-08 20:58] VITALS: BP 169/59
[2017-03-09 05:12] LABS: BASOPHILS 0.3 % (0-2); EOSINOPHILS 0.4 % (0-7); HEMATOCRIT 29.1 % (42.0-54.0); HEMOGLOBIN 9.2 g/dL (13.5-17.5); IMMATURE GRANULOCYTES 0.3 % (0-5); LYMPHOCYTES 28.8 % (15-50); MCHC 31.6 g/dL (31.0-37.0); MCV 88.4 fL (80.0-100.0); MEAN PLATELET VOLUME 10.6 fL (7.4-10.4); MONOCYTES 9.5 % (2-11); NEUTROPHILS 60.7 % (40-80); PLATELET COUNT 285 10x3/uL (130-400); RBC 3.29 10x6/uL (4.20-6.10); RDW 13.7 % (11.5-14.5); WBC 7.9 10x3/uL (4.8-10.8)
[2017-03-09 05:40] LABS: ALBUMIN 2.5 g/dL (3.4-5.0); ANION GAP 9.3 mmol/L (8-16); BILIRUBIN - TOTAL 0.17 mg/dL (0.2-1.3); CALCIUM 8.4 mg/dL (8.5-10.1); CARBON DIOXIDE 28.4 mmol/L (21.0-32.0); CREATININE - SERUM 1.4 mg/dL (0.6-1.3); POTASSIUM - SERUM 3.7 mmol/L (3.5-5.1); PROTEIN - SERUM 6.7 g/dL (6.4-8.2)
[2017-03-09 05:54] VITALS: BP 120/40
[2017-03-09 08:49] VITALS: BP 152/49
[2017-03-09 12:34] VITALS: BP 150/46
[2017-03-09 16:46] VITALS: BP 160/50
[2017-03-09 20:00] VITALS: BP 147/55
[2017-03-10 04:24] LABS: BASOPHILS 0.4 % (0-2); EOSINOPHILS 1.2 % (0-7); HEMATOCRIT 29.5 % (42.0-54.0); HEMOGLOBIN 9.3 g/dL (13.5-17.5); IMMATURE GRANULOCYTES 0.3 % (0-5); LYMPHOCYTES 31.4 % (15-50); MCH 27.8 pg (26.0-34.0); MCHC 31.5 g/dL (31.0-37.0); MCV 88.1 fL (80.0-100.0); MEAN PLATELET VOLUME 10.4 fL (7.4-10.4); MONOCYTES 7.6 % (2-11); NEUTROPHILS 59.1 % (40-80); PLATELET COUNT 310 10x3/uL (130-400); RBC 3.35 10x6/uL (4.20-6.10); RDW 13.9 % (11.5-14.5); WBC 7.8 10x3/uL (4.8-10.8)
[2017-03-10 04:49] LABS: ANION GAP 10.9 mmol/L (8-16); CALCIUM 8.5 mg/dL (8.5-10.1); CARBON DIOXIDE 26.9 mmol/L (21.0-32.0); CREATININE - SERUM 1.4 mg/dL (0.6-1.3); POTASSIUM - SERUM 3.8 mmol/L (3.5-5.1)
[2017-03-10 05:52] VITALS: BP 123/38
[2017-03-10 08:08] VITALS: BP 157/59
[2017-03-10 12:36] VITALS: BP 151/56
[2017-03-10 17:00] VITALS: BP 187/82
[2017-03-11 01:13] VITALS: BP 135/58
[2017-03-11 04:59] LABS: BASOPHILS 0.4 % (0-2); EOSINOPHILS 1.5 % (0-7); HEMATOCRIT 29.6 % (42.0-54.0); HEMOGLOBIN 9.5 g/dL (13.5-17.5); IMMATURE GRANULOCYTES 0.3 % (0-5); MCH 28.3 pg (26.0-34.0); MCHC 32.1 g/dL (31.0-37.0); MCV 88.1 fL (80.0-100.0); MEAN PLATELET VOLUME 10.7 fL (7.4-10.4); MONOCYTES 8.6 % (2-11); NEUTROPHILS 63.2 % (40-80); PLATELET COUNT 308 10x3/uL (130-400); RBC 3.36 10x6/uL (4.20-6.10); RDW 13.9 % (11.5-14.5); WBC 7.5 10x3/uL (4.8-10.8)
[2017-03-11 05:23] LABS: CALCIUM 8.5 mg/dL (8.5-10.1); CARBON DIOXIDE 26.7 mmol/L (21.0-32.0); CREATININE - SERUM 1.4 mg/dL (0.6-1.3); POTASSIUM - SERUM 3.7 mmol/L (3.5-5.1)
[2017-03-11 05:36] VITALS: BP 110/64
[2017-03-11 08:00] VITALS: BP 128/59
[2017-03-11 12:00] VITALS: BP 139/55
[2017-03-11 16:00] VITALS: BP 194/79
[2017-03-12 03:54] VITALS: BP 149/77
[2017-03-12] MEDS ORDERED: HUMULIN R100 U/ML SC (07:55)
[2017-03-12] MEDS ORDERED: LANTUS INSULIN10 ML SC (07:55)
[2017-03-12 08:30] VITALS: BP 124/46
[2017-03-12] MEDS ORDERED: CIPRO500 MG PO (12:05)
[2017-03-12 12:06] VITALS: BP 133/68
[2017-03-12] MEDS ORDERED: VANCOMYCIN 1 GM/1 G1 IV (12:06)
== END 2017-03-12 15:50 | DRG 249 ==
LOC: D.ER 16:18 → D.MS 23:10 → D.M2 23:10
PROVIDERS: Family Medicine; Internal Medicine Interventional Cardiology
PROC: B2111ZZ Fluoroscopy of Multiple Coronary Arteries using Low Osmolar Contrast (ICD-10-PCS; 2017-02-27)
PROC: B2151ZZ Fluoroscopy of Left Heart using Low Osmolar Contrast (ICD-10-PCS; 2017-02-27)
PROC: 02703DZ Dilation of Coronary Artery, One Artery with Intraluminal Device, Percutaneous Approach (ICD-10-PCS; principal; 2017-02-27 13:00)
PROC: 4A023N7 Measurement of Cardiac Sampling and Pressure, Left Heart, Percutaneous Approach (ICD-10-PCS; 2017-02-27 13:00)
PROC: 0QBM0ZZ Excision of Left Tarsal, Open Approach (ICD-10-PCS; 2017-03-03)
PROC: 3E0V329 Introduction of Other Anti-infective into Bones, Percutaneous Approach (ICD-10-PCS; 2017-03-03)
PROC: 02HV33Z Insertion of Infusion Device into Superior Vena Cava, Percutaneous Approach (ICD-10-PCS; 2017-03-11)
PROC: B548ZZA Ultrasonography of Superior Vena Cava, Guidance (ICD-10-PCS; 2017-03-11)
DX: I13.0 Hypertensive heart and chronic kidney disease with heart failure and stage 1 through stage 4 chronic kidney disease, or unspecified chronic kidney disease (principal); M86.172 Other acute osteomyelitis, left ankle and foot; N17.9 Acute kidney failure, unspecified; I50.9 Heart failure, unspecified; E11.69 Type 2 diabetes mellitus with other specified complication; I25.119 Atherosclerotic heart disease of native coronary artery with unspecified angina pectoris; E11.22 Type 2 diabetes mellitus with diabetic chronic kidney disease; N18.3 Chronic kidney disease, stage 3 (moderate); D64.9 Anemia, unspecified; Z79.4 Long term (current) use of insulin; E11.40 Type 2 diabetes mellitus with diabetic neuropathy, unspecified; E11.51 Type 2 diabetes mellitus with diabetic peripheral angiopathy without gangrene; E78.5 Hyperlipidemia, unspecified; R94.31 Abnormal electrocardiogram [ECG] [EKG]; Z86.73 Personal history of transient ischemic attack (TIA), and cerebral infarction without residual deficits; B95.62 Methicillin resistant Staphylococcus aureus infection as the cause of diseases classified elsewhere

== ENCOUNTER 2017-04-09 00:38 | Inpatient (IN) | payer MEDICARE, MEDICAID ==
[~2017-04-09] VITALS: Ht 188 cm; Wt 112.9 kg
[~2017-04-09 00:38] MED LIST changes: +ACETAMINOPHEN325 MG PO; +ACIDOPHILUS LAC1 CAP PO; +CIPRO500 MG PO; +SENNA8.6 MG PO; +ULTRAM50 MG PO; +VANCOMYCIN 1 GM/1 G1 IV; +VIBRAMYCIN 100100 MG PO; +ZOFRAN4 MG PO
[2017-04-09 01:46] LABS: BASOPHILS 0.3 % (0-2); EOSINOPHILS 3.8 % (0-7); HEMATOCRIT 24.5 % (42.0-54.0); HEMOGLOBIN 7.6 g/dL (13.5-17.5); IMMATURE GRANULOCYTES 0.1 % (0-5); LYMPHOCYTES 22.3 % (15-50); MCH 26.6 pg (26.0-34.0); MCV 85.7 fL (80.0-100.0); MEAN PLATELET VOLUME 9.5 fL (7.4-10.4); MONOCYTES 9.7 % (2-11); NEUTROPHILS 63.8 % (40-80); PLATELET COUNT 274 10x3/uL (130-400); RBC 2.86 10x6/uL (4.20-6.10); WBC 6.8 10x3/uL (4.8-10.8)
[2017-04-09 01:57] LABS: ALBUMIN 2.7 g/dL (3.4-5.0); ANION GAP 12.5 mmol/L (8-16); BILIRUBIN - TOTAL 0.2 mg/dL (0.2-1.3); CALCIUM 8.2 mg/dL (8.5-10.1); CARBON DIOXIDE 26.5 mmol/L (21.0-32.0); CREATININE - SERUM 2.3 mg/dL (0.6-1.3); INR 1.12 (0.85-1.17); PROTEIN - SERUM 6.8 g/dL (6.4-8.2)
[2017-04-09 04:38] VITALS: BP 163/60; BMI 32.0
[2017-04-09] MEDS ORDERED: LANTUS SOL100 UNIT/1 SC (05:37)
[2017-04-09 06:03] VITALS: BP 163/60
[2017-04-09 11:00] VITALS: BP 137/50
[2017-04-09 13:08] VITALS: BMI 31.9
[2017-04-09 16:23] VITALS: BP 160/78
[2017-04-09 20:00] VITALS: BP 150/62
[2017-04-09 20:46] LABS: HEMATOCRIT 28.6 % (42.0-54.0); HEMOGLOBIN 9.2 g/dL (13.5-17.5)
[2017-04-09 23:58] VITALS: BP 156/68
[2017-04-10 04:00] VITALS: BP 169/73
[2017-04-10 05:43] LABS: BASOPHILS 0.3 % (0-2); EOSINOPHILS 4.9 % (0-7); HEMATOCRIT 31.8 % (42.0-54.0); HEMOGLOBIN 10.3 g/dL (13.5-17.5); IMMATURE GRANULOCYTES 0.5 % (0-5); LYMPHOCYTES 10.6 % (15-50); MCH 27.8 pg (26.0-34.0); MCHC 32.4 g/dL (31.0-37.0); MCV 85.7 fL (80.0-100.0); MEAN PLATELET VOLUME 10.3 fL (7.4-10.4); MONOCYTES 7.7 % (2-11); PLATELET COUNT 291 10x3/uL (130-400); RDW 13.9 % (11.5-14.5)
[2017-04-10 05:44] LABS: RBC 3.71 10x6/uL (4.20-6.10); WBC 10.5 10x3/uL (4.8-10.8)
[2017-04-10 06:01] LABS: ALBUMIN 2.6 g/dL (3.4-5.0); BILIRUBIN - TOTAL 0.3 mg/dL (0.2-1.3); CALCIUM 8.2 mg/dL (8.5-10.1); CARBON DIOXIDE 28.2 mmol/L (21.0-32.0); CREATININE - SERUM 1.9 mg/dL (0.6-1.3); PROTEIN - SERUM 6.9 g/dL (6.4-8.2)
[2017-04-10 06:08] LABS: ANION GAP 10.9 mmol/L (8-16); POTASSIUM - SERUM 3.1 mmol/L (3.5-5.1)
[2017-04-10 08:13] VITALS: BP 124/79
[2017-04-10 12:13] VITALS: BP 148/53
[2017-04-10 17:20] VITALS: BP 138/69
[2017-04-10 22:58] VITALS: Ht 188 cm; Wt 112.9 kg
== END 2017-04-10 20:32 | DRG 378 ==
LOC: D.ER 00:38 → D.MS 02:06 → OBSVTIME 02:06 → D.MS 02:06
PROVIDERS: Family Medicine; Nurse Practitioner Family
DX: K92.2 Gastrointestinal hemorrhage, unspecified (principal); M86.9 Osteomyelitis, unspecified; D64.9 Anemia, unspecified; I12.9 Hypertensive chronic kidney disease with stage 1 through stage 4 chronic kidney disease, or unspecified chronic kidney disease; E11.22 Type 2 diabetes mellitus with diabetic chronic kidney disease; N18.3 Chronic kidney disease, stage 3 (moderate); Z79.4 Long term (current) use of insulin; E11.69 Type 2 diabetes mellitus with other specified complication; L97.529 Non-pressure chronic ulcer of other part of left foot with unspecified severity

== ENCOUNTER → 2017-04-17 10:03 | Outpatient (CLI) | payer MEDICARE, MEDICAID ==
[2017-04-10 22:58] VITALS: BMI 31.9
== END | disposition home or self-care (01) ==
LOC: D.LABREF 10:03
DX: R53.83 Other fatigue (principal)

== ENCOUNTER 2017-04-27 16:17 | Emergency (ER) | payer MEDICARE, MEDICAID ==
[2017-04-10 22:58] VITALS: BMI 31.9
[2017-04-27 17:06] LABS: BASOPHILS 0.3 % (0-2); EOSINOPHILS 0.2 % (0-7); HEMATOCRIT 33.3 % (42.0-54.0); HEMOGLOBIN 10.8 g/dL (13.5-17.5); IMMATURE GRANULOCYTES 0.3 % (0-5); LYMPHOCYTES 6.9 % (15-50); MCH 27.3 pg (26.0-34.0); MCHC 32.4 g/dL (31.0-37.0); MCV 84.3 fL (80.0-100.0); MEAN PLATELET VOLUME 10.1 fL (7.4-10.4); MONOCYTES 5.9 % (2-11); NEUTROPHILS 86.4 % (40-80); RBC 3.95 10x6/uL (4.20-6.10); RDW 13.9 % (11.5-14.5); WBC 13.4 10x3/uL (4.8-10.8)
[2017-04-27 17:19] LABS: PLATELET COUNT 418 10x3/uL (130-400)
== END 2017-04-27 20:50 | disposition home or self-care (01) ==
LOC: D.ER 16:17
PROVIDERS: Family Medicine
DX: L76.22 Postprocedural hemorrhage of skin and subcutaneous tissue following other procedure (principal); I12.9 Hypertensive chronic kidney disease with stage 1 through stage 4 chronic kidney disease, or unspecified chronic kidney disease; N18.9 Chronic kidney disease, unspecified; E11.9 Type 2 diabetes mellitus without complications; Z79.4 Long term (current) use of insulin

== ENCOUNTER 2017-05-11 14:24 | Inpatient (IN) | payer MEDICARE, MEDICAID ==
[~2017-05-11] VITALS: Ht 188 cm; Wt 112.9 kg
--- NOTE | ~2017-05-11 | OP ---
PATIENT NAME: STEW CAVANAUGH MEDICAL RECORD: [id number] :49 LOCATION:D.MS [place]2239 ADMISSION DATE:05/12/17 SURGEON: LUISA BRUCE MD DATE OF OPERATION: 05/23/2017 PREOPERATIVE DIAGNOSIS: Nonviable left lower extremity with osteomyelitis and terminal infection to the foot and ankle. POSTOPERATIVE DIAGNOSIS: Nonviable left lower extremity with osteomyelitis and terminal infection to the foot and ankle. PROCEDURE: Left above-knee amputation. SURGEON: Luisa Bruce MD ANESTHESIA: General. INTRAOPERATIVE COMPLICATIONS: None. SUMMARY OF PATHOLOGIC FINDINGS: Essentially none. INDICATIONS: Mr. Cavanaugh is a 71-year-old gentleman who has been battling the wound that include multiple irrigation and debridement trials with antibiotic beads done by another physician, was essentially consulted for below-knee amputation. The patient agreed and wished to proceed with the operation. OPERATIVE SUMMARY IN DETAIL: After obtaining the appropriate preoperative orthopedic surgery consent as well as anesthetic consultation, evaluation and clearance, the patient was brought to the operating room and placed on the operating table in supine position. After adequate general laryngeal mask was administered, tourniquet was placed about the proximal aspect of the left lower extremity. Left lower extremity was then prepped and draped in routine sterile fashion. Leg was elevated and exsanguinated, and tourniquet was inflated to 350 mmHg. A routine incision was drawn and incision was made with a large posterior flap taken down to the level of the tibia. Dissection was carried down to the fibula as well, both the tibia and the fibula were osteotomized, the fibula higher in an angle. Soft tissues were then completely incised using the amputation knife. At this point, major vessels were identified, high ligated. Tourniquet was then deflated, any further bleeders were also clamped and ligated or cauterized, irrigation was then followed by closure of the posterior gastroc flap to the anterior periosteum and fascial plane. This was followed by closure of the subcutaneous layer and finally closure with skin dagoberto. Sterile dressings were applied. The patient was awakened, taken to recovery room in stable condition. All final needle and sponge counts were correct. TRANSINT:[id number] Voice Confirmation ID: [id number] DOCUMENT ID: [id number] OPERATIVE REPORT [id number] STEW CAVANAUGH MD, JAMES KEVIN at 1026 CC: [id number] DICTATION DATE: 05/23/17940 POLO COACH: 05/23/17957 ADM IN [place] [id number] [place] [id number]
[2017-05-11 15:09] LABS: BASOPHILS 0.2 % (0-2); EOSINOPHILS 0.6 % (0-7); HEMOGLOBIN 10.1 g/dL (13.5-17.5); IMMATURE GRANULOCYTES 0.4 % (0-5); LYMPHOCYTES 7.7 % (15-50); MCH 26.2 pg (26.0-34.0); MCHC 31.6 g/dL (31.0-37.0); MCV 83.1 fL (80.0-100.0); MEAN PLATELET VOLUME 10.2 fL (7.4-10.4); MONOCYTES 4.9 % (2-11); NEUTROPHILS 86.2 % (40-80); PLATELET COUNT 484 10x3/uL (130-400); RBC 3.85 10x6/uL (4.20-6.10); RDW 14.4 % (11.5-14.5); WBC 18.8 10x3/uL (4.8-10.8)
[2017-05-11 15:41] LABS: ALBUMIN 2.7 g/dL (3.4-5.0); BILIRUBIN - TOTAL 0.32 mg/dL (0.2-1.3); CALCIUM 9.3 mg/dL (8.5-10.1); CARBON DIOXIDE 26.6 mmol/L (21.0-32.0); CREATININE - SERUM 2.5 mg/dL (0.6-1.3); POTASSIUM - SERUM 3.6 mmol/L (3.5-5.1); PROTEIN - SERUM 8.8 g/dL (6.4-8.2)
[2017-05-11 18:27] LABS: INR 0.98 (0.85-1.17); PROTIME 12.6 SECONDS (11.6-15.0)
[2017-05-11 18:33] LABS: APPEARANCE CLEAR (CLEAR); BILIRUBIN NEGATIVE (NEGATIVE); COLOR YELLOW (YELLOW); GLUCOSE 1000 mg/dL (NEGATIVE); KETONE NEGATIVE (NEGATIVE); NITRITE NEGATIVE (NEGATIVE); PROTEIN TRACE mg/dL (NEGATIVE); SPECIFIC GRAVITY 1.015 (1.005-1.020); UROBILINOGEN NORMAL (NORMAL)
[2017-05-11 18:36] LABS: CREATINE KINASE 38 UL (21-232); PRO BNP 3970 pg/mL (0-125)
[2017-05-12 04:24] LABS: BASOPHILS 0.1 % (0-2); EOSINOPHILS 0.2 % (0-7); HEMATOCRIT 27.7 % (42.0-54.0); HEMOGLOBIN 8.7 g/dL (13.5-17.5); IMMATURE GRANULOCYTES 0.4 % (0-5); LYMPHOCYTES 11.4 % (15-50); MCH 26.1 pg (26.0-34.0); MCHC 31.4 g/dL (31.0-37.0); MCV 83.2 fL (80.0-100.0); MEAN PLATELET VOLUME 10.3 fL (7.4-10.4); NEUTROPHILS 79.9 % (40-80); PLATELET COUNT 456 10x3/uL (130-400); RBC 3.33 10x6/uL (4.20-6.10); RDW 14.6 % (11.5-14.5)
[2017-05-12 04:34] LABS: WBC 12.6 10x3/uL (4.8-10.8)
[2017-05-12 04:36] LABS: ANION GAP 11.9 mmol/L (8-16); CALCIUM 8.1 mg/dL (8.5-10.1); CARBON DIOXIDE 29.7 mmol/L (21.0-32.0); CREATININE - SERUM 2.7 mg/dL (0.6-1.3); POTASSIUM - SERUM 3.6 mmol/L (3.5-5.1)
[2017-05-12 05:56] VITALS: BP 109/42; BMI 32.0
[2017-05-12 08:15] VITALS: BP 101/57
[2017-05-12 11:59] VITALS: BP 131/52
[2017-05-12 13:55] VITALS: BMI 31.9
[2017-05-12 14:35] LABS: ERYTHROCYTE SEDIMENTATION RATE 91 mm/hr (0-20)
[2017-05-12 15:48] VITALS: BP 135/47
[2017-05-12 16:29] LABS: HEMATOCRIT 24.1 % (42.0-54.0); HEMOGLOBIN 7.7 g/dL (13.5-17.5)
[2017-05-12 17:48] LABS: CREATININE - URINE 53.5 mg/dL (30-125); PRO/CRE RATIO URINE 1.2 mg/g; PROTEIN - URINE 61.9 mg/dL (0.0-11.9)
[2017-05-12 17:50] LABS: APPEARANCE CLEAR (CLEAR); BILIRUBIN NEGATIVE (NEGATIVE); COLOR YELLOW (YELLOW); GLUCOSE 1000 mg/dL (NEGATIVE); KETONE NEGATIVE (NEGATIVE); NITRITE NEGATIVE (NEGATIVE); PROTEIN TRACE mg/dL (NEGATIVE); RED CELLS - URINE OCC /hpf (0-5); UROBILINOGEN NORMAL (NORMAL)
[2017-05-12 17:52] LABS: BACTERIA MODERATE /hpf (NONE SEEN); YEAST <1+ /hpf (NONE SEEN)
[2017-05-12 20:00] VITALS: BP 140/59
[2017-05-13 01:15] VITALS: Ht 188 cm; Wt 112.9 kg
[2017-05-13 04:00] VITALS: BP 124/37
[2017-05-13 04:45] LABS: BASOPHILS 0.4 % (0-2); EOSINOPHILS 3.5 % (0-7); HEMATOCRIT 24.9 % (42.0-54.0); HEMOGLOBIN 7.8 g/dL (13.5-17.5); IMMATURE GRANULOCYTES 0.6 % (0-5); LYMPHOCYTES 25.3 % (15-50); MCH 25.8 pg (26.0-34.0); MCHC 31.3 g/dL (31.0-37.0); MCV 82.5 fL (80.0-100.0); MEAN PLATELET VOLUME 10.2 fL (7.4-10.4); MONOCYTES 9.9 % (2-11); NEUTROPHILS 60.3 % (40-80); PLATELET COUNT 372 10x3/uL (130-400); RBC 3.02 10x6/uL (4.20-6.10); RDW 14.7 % (11.5-14.5)
[2017-05-13 04:46] LABS: WBC 7.2 10x3/uL (4.8-10.8)
[2017-05-13 04:52] LABS: ALBUMIN 2.1 g/dL (3.4-5.0); ANION GAP 11.4 mmol/L (8-16); BILIRUBIN - TOTAL 0.3 mg/dL (0.2-1.3); CALCIUM 7.5 mg/dL (8.5-10.1); CARBON DIOXIDE 25.1 mmol/L (21.0-32.0); CREATININE - SERUM 2.1 mg/dL (0.6-1.3); POTASSIUM - SERUM 3.5 mmol/L (3.5-5.1); PROTEIN - SERUM 6.7 g/dL (6.4-8.2)
[2017-05-13 08:02] VITALS: BP 113/47
[2017-05-13 12:50] VITALS: BP 173/71
[2017-05-13 20:00] VITALS: BP 143/64; BP 74/45
[2017-05-14] VITALS: BP 136/80
[2017-05-14 04:00] VITALS: BP 133/60
[2017-05-14 04:10] LABS: BASOPHILS 0.2 % (0-2); EOSINOPHILS 2.9 % (0-7); IMMATURE GRANULOCYTES 0.3 % (0-5); LYMPHOCYTES 14.3 % (15-50); MCH 26.8 pg (26.0-34.0); MCHC 32.7 g/dL (31.0-37.0); MEAN PLATELET VOLUME 10.2 fL (7.4-10.4); NEUTROPHILS 74.3 % (40-80); PLATELET COUNT 372 10x3/uL (130-400); RDW 14.4 % (11.5-14.5)
[2017-05-14 04:11] LABS: HEMATOCRIT 30.9 % (42.0-54.0); HEMOGLOBIN 10.1 g/dL (13.5-17.5); RBC 3.77 10x6/uL (4.20-6.10); WBC 9.5 10x3/uL (4.8-10.8)
[2017-05-14 04:28] LABS: ALBUMIN 2.1 g/dL (3.4-5.0); ANION GAP 14.2 mmol/L (8-16); BILIRUBIN - TOTAL 0.45 mg/dL (0.2-1.3); CALCIUM 8.2 mg/dL (8.5-10.1); CARBON DIOXIDE 23.2 mmol/L (21.0-32.0); CREATININE - SERUM 1.6 mg/dL (0.6-1.3); POTASSIUM - SERUM 3.4 mmol/L (3.5-5.1); PROTEIN - SERUM 7.1 g/dL (6.4-8.2)
[2017-05-14 07:58] VITALS: BP 134/58
[2017-05-14 09:18] LABS: SPE - A/G RATIO 0.6 (0.7-1.7); SPE - ALBUMIN 2.5 g/dL (2.9-4.4); SPE - ALPHA-1 GLOBULIN 0.3 g/dL (0.0-0.4); SPE - BETA GLOBULIN 1.2 g/dL (0.7-1.3); SPE - GAMMA GLOBULIN 1.7 g/dL (0.4-1.8); SPE - M-SPIKE Not Observed g/dL (Not Observed); SPE - TOTAL PROTEIN 6.8 g/dL (6.0-8.5)
[2017-05-14 12:23] VITALS: BP 172/61
[2017-05-14 15:55] VITALS: BP 172/77
[2017-05-14 20:00] VITALS: BP 163/67
[2017-05-15] VITALS: BP 154/64
[2017-05-15 04:00] VITALS: BP 166/71
[2017-05-15 06:25] LABS: BASOPHILS 0.2 % (0-2); EOSINOPHILS 3.5 % (0-7); HEMATOCRIT 31.1 % (42.0-54.0); HEMOGLOBIN 9.8 g/dL (13.5-17.5); IMMATURE GRANULOCYTES 0.2 % (0-5); LYMPHOCYTES 17.1 % (15-50); MCH 26.2 pg (26.0-34.0); MCHC 31.5 g/dL (31.0-37.0); MCV 83.2 fL (80.0-100.0); MEAN PLATELET VOLUME 10.1 fL (7.4-10.4); MONOCYTES 8.7 % (2-11); NEUTROPHILS 70.3 % (40-80); PLATELET COUNT 354 10x3/uL (130-400); RBC 3.74 10x6/uL (4.20-6.10); RDW 14.4 % (11.5-14.5); WBC 8.5 10x3/uL (4.8-10.8)
[2017-05-15 06:42] LABS: ALBUMIN 2.1 g/dL (3.4-5.0); ANION GAP 11.2 mmol/L (8-16); BILIRUBIN - TOTAL 0.4 mg/dL (0.2-1.3); CALCIUM 8.2 mg/dL (8.5-10.1); CARBON DIOXIDE 25.2 mmol/L (21.0-32.0); CREATININE - SERUM 1.6 mg/dL (0.6-1.3); POTASSIUM - SERUM 3.4 mmol/L (3.5-5.1); PROTEIN - SERUM 6.8 g/dL (6.4-8.2)
[2017-05-15 07:28] LABS: UPE RAND - ALBUMIN 50.3 % (()); UPE RAND - ALPHA 1 GLOBULIN 2.8 % (()); UPE RAND - BETA GLOBULIN 19.5 % (()); UPE RAND - GAMMA GLOBULIN 15.4 % (())
[2017-05-15 09:13] VITALS: BP 163/72
[2017-05-15 12:29] VITALS: BP 155/75
[2017-05-15 16:15] VITALS: BP 164/77
[2017-05-15 20:00] VITALS: BP 174/72
[2017-05-16 04:00] VITALS: BP 157/81
[2017-05-16 08:07] VITALS: BP 154/75
[2017-05-16 10:47] LABS: BASOPHILS 0.3 % (0-2); EOSINOPHILS 3.3 % (0-7); HEMATOCRIT 30.7 % (42.0-54.0); HEMOGLOBIN 9.7 g/dL (13.5-17.5); IMMATURE GRANULOCYTES 0.3 % (0-5); LYMPHOCYTES 19.1 % (15-50); MCH 26.4 pg (26.0-34.0); MCHC 31.6 g/dL (31.0-37.0); MCV 83.4 fL (80.0-100.0); MEAN PLATELET VOLUME 9.4 fL (7.4-10.4); MONOCYTES 6.6 % (2-11); NEUTROPHILS 70.4 % (40-80); PLATELET COUNT 302 10x3/uL (130-400); RBC 3.68 10x6/uL (4.20-6.10); RDW 14.4 % (11.5-14.5); WBC 7.3 10x3/uL (4.8-10.8)
[2017-05-16 11:09] LABS: ANION GAP 11.4 mmol/L (8-16); BILIRUBIN - TOTAL 0.19 mg/dL (0.2-1.3); CALCIUM 8.1 mg/dL (8.5-10.1); CREATININE - SERUM 1.4 mg/dL (0.6-1.3); POTASSIUM - SERUM 3.4 mmol/L (3.5-5.1); PROTEIN - SERUM 6.6 g/dL (6.4-8.2)
[2017-05-16 16:24] VITALS: BP 174/56
[2017-05-16 20:00] VITALS: BP 172/80
[2017-05-17] VITALS: BP 156/60
[2017-05-17 04:00] VITALS: BP 154/68
[2017-05-17 05:08] LABS: BASOPHILS 0.4 % (0-2); EOSINOPHILS 3.9 % (0-7); HEMATOCRIT 31.9 % (42.0-54.0); HEMOGLOBIN 10.1 g/dL (13.5-17.5); IMMATURE GRANULOCYTES 0.1 % (0-5); LYMPHOCYTES 18.7 % (15-50); MCH 26.6 pg (26.0-34.0); MCHC 31.7 g/dL (31.0-37.0); MCV 84.2 fL (80.0-100.0); MEAN PLATELET VOLUME 9.7 fL (7.4-10.4); MONOCYTES 8.4 % (2-11); NEUTROPHILS 68.5 % (40-80); PLATELET COUNT 310 10x3/uL (130-400); RBC 3.79 10x6/uL (4.20-6.10); RDW 14.6 % (11.5-14.5); WBC 7.2 10x3/uL (4.8-10.8)
[2017-05-17 05:27] LABS: ANION GAP 13.6 mmol/L (8-16); BILIRUBIN - TOTAL 0.24 mg/dL (0.2-1.3); CARBON DIOXIDE 22.6 mmol/L (21.0-32.0); CREATININE - SERUM 1.3 mg/dL (0.6-1.3); POTASSIUM - SERUM 3.2 mmol/L (3.5-5.1); PROTEIN - SERUM 6.6 g/dL (6.4-8.2)
[2017-05-17 08:18] VITALS: BP 147/56
[2017-05-17 12:42] VITALS: BP 134/61
[2017-05-17 16:22] VITALS: BP 157/78
[2017-05-17 17:07] LABS: AEROBE ID Final report (())
[2017-05-17 21:31] VITALS: BP 153/69
[2017-05-18 00:50] VITALS: BP 176/84
[2017-05-18 05:09] LABS: BASOPHILS 0.5 % (0-2); EOSINOPHILS 3.5 % (0-7); HEMATOCRIT 30.1 % (42.0-54.0); HEMOGLOBIN 9.6 g/dL (13.5-17.5); IMMATURE GRANULOCYTES 0.5 % (0-5); LYMPHOCYTES 16.8 % (15-50); MCH 26.4 pg (26.0-34.0); MCHC 31.9 g/dL (31.0-37.0); MCV 82.9 fL (80.0-100.0); MEAN PLATELET VOLUME 9.8 fL (7.4-10.4); MONOCYTES 8.1 % (2-11); NEUTROPHILS 70.6 % (40-80); PLATELET COUNT 306 10x3/uL (130-400); RBC 3.63 10x6/uL (4.20-6.10); RDW 14.5 % (11.5-14.5); WBC 8.6 10x3/uL (4.8-10.8)
[2017-05-18 05:26] LABS: ANION GAP 9.4 mmol/L (8-16); BILIRUBIN - TOTAL 0.18 mg/dL (0.2-1.3); CARBON DIOXIDE 26.6 mmol/L (21.0-32.0); CREATININE - SERUM 1.4 mg/dL (0.6-1.3); PROTEIN - SERUM 6.5 g/dL (6.4-8.2)
[2017-05-18 05:43] VITALS: BP 186/84
[2017-05-18 09:59] VITALS: BP 129/49
[2017-05-18 11:55] VITALS: BP 130/58
[2017-05-18 16:48] VITALS: BP 167/75
[2017-05-18 20:00] VITALS: BP 167/63
[2017-05-19 04:00] VITALS: BP 155/64
[2017-05-19 04:22] LABS: BASOPHILS 0.4 % (0-2); EOSINOPHILS 4.7 % (0-7); HEMATOCRIT 29.8 % (42.0-54.0); HEMOGLOBIN 9.8 g/dL (13.5-17.5); IMMATURE GRANULOCYTES 0.3 % (0-5); LYMPHOCYTES 19.2 % (15-50); MCH 27.3 pg (26.0-34.0); MCHC 32.9 g/dL (31.0-37.0); MEAN PLATELET VOLUME 10.1 fL (7.4-10.4); MONOCYTES 6.9 % (2-11); NEUTROPHILS 68.5 % (40-80); PLATELET COUNT 305 10x3/uL (130-400); RBC 3.59 10x6/uL (4.20-6.10); RDW 14.9 % (11.5-14.5); WBC 7.8 10x3/uL (4.8-10.8)
[2017-05-19 04:35] LABS: ANION GAP 11.2 mmol/L (8-16); BILIRUBIN - TOTAL 0.27 mg/dL (0.2-1.3); CARBON DIOXIDE 25.6 mmol/L (21.0-32.0); CREATININE - SERUM 1.5 mg/dL (0.6-1.3); PROTEIN - SERUM 6.4 g/dL (6.4-8.2)
[2017-05-19 04:49] LABS: POTASSIUM - SERUM 2.8 mmol/L (3.5-5.1)
[2017-05-19 08:32] VITALS: BP 114/48
[2017-05-19 13:41] VITALS: BP 113/67
[2017-05-19 13:53] VITALS: BP 183/86
[2017-05-19 16:32] VITALS: BP 168/71
[2017-05-19 20:00] VITALS: BP 176/79
[2017-05-20 04:00] VITALS: BP 145/62
[2017-05-20 08:00] LABS: BASOPHILS 0.3 % (0-2); EOSINOPHILS 4.4 % (0-7); HEMATOCRIT 30.2 % (42.0-54.0); HEMOGLOBIN 9.6 g/dL (13.5-17.5); IMMATURE GRANULOCYTES 0.1 % (0-5); LYMPHOCYTES 18.9 % (15-50); MCH 26.7 pg (26.0-34.0); MCHC 31.8 g/dL (31.0-37.0); MCV 84.1 fL (80.0-100.0); MEAN PLATELET VOLUME 9.2 fL (7.4-10.4); NEUTROPHILS 70.3 % (40-80); PLATELET COUNT 255 10x3/uL (130-400); RBC 3.59 10x6/uL (4.20-6.10); RDW 15.1 % (11.5-14.5); WBC 7.8 10x3/uL (4.8-10.8)
[2017-05-20 08:03] VITALS: BP 154/65
[2017-05-20 08:21] LABS: ANION GAP 11.9 mmol/L (8-16); BILIRUBIN - TOTAL 0.17 mg/dL (0.2-1.3); CALCIUM 8.5 mg/dL (8.5-10.1); CARBON DIOXIDE 25.6 mmol/L (21.0-32.0); CREATININE - SERUM 1.4 mg/dL (0.6-1.3); POTASSIUM - SERUM 3.5 mmol/L (3.5-5.1); PROTEIN - SERUM 6.5 g/dL (6.4-8.2)
[2017-05-20 11:56] VITALS: BP 160/62
[2017-05-20 17:02] VITALS: BP 170/80
[2017-05-20 20:00] VITALS: BP 170/63
[2017-05-21] VITALS: BP 151/49
[2017-05-21 04:00] VITALS: BP 157/50
[2017-05-21 04:13] LABS: BASOPHILS 0.3 % (0-2); EOSINOPHILS 4.5 % (0-7); HEMATOCRIT 30.8 % (42.0-54.0); HEMOGLOBIN 9.7 g/dL (13.5-17.5); IMMATURE GRANULOCYTES 0.2 % (0-5); LYMPHOCYTES 18.7 % (15-50); MCH 26.6 pg (26.0-34.0); MCHC 31.5 g/dL (31.0-37.0); MCV 84.6 fL (80.0-100.0); MEAN PLATELET VOLUME 10.2 fL (7.4-10.4); MONOCYTES 9.1 % (2-11); NEUTROPHILS 67.2 % (40-80); PLATELET COUNT 294 10x3/uL (130-400); RBC 3.64 10x6/uL (4.20-6.10); RDW 15.5 % (11.5-14.5)
[2017-05-21 04:26] LABS: BILIRUBIN - TOTAL 0.22 mg/dL (0.2-1.3); CALCIUM 8.1 mg/dL (8.5-10.1); CARBON DIOXIDE 26.3 mmol/L (21.0-32.0); CREATININE - SERUM 1.4 mg/dL (0.6-1.3); POTASSIUM - SERUM 3.3 mmol/L (3.5-5.1); PROTEIN - SERUM 6.5 g/dL (6.4-8.2)
[2017-05-21 09:20] VITALS: BP 169/49
[2017-05-21 13:17] VITALS: BP 170/53
[2017-05-21 17:38] VITALS: BP 168/54
[2017-05-21 20:00] VITALS: BP 180/72
[2017-05-22] VITALS: BP 135/47
[2017-05-22 04:00] VITALS: BP 126/55
[2017-05-22 04:24] LABS: BASOPHILS 0.4 % (0-2); EOSINOPHILS 4.7 % (0-7); HEMATOCRIT 29.3 % (42.0-54.0); HEMOGLOBIN 9.3 g/dL (13.5-17.5); IMMATURE GRANULOCYTES 0.2 % (0-5); LYMPHOCYTES 19.3 % (15-50); MCH 26.8 pg (26.0-34.0); MCHC 31.7 g/dL (31.0-37.0); MCV 84.4 fL (80.0-100.0); MEAN PLATELET VOLUME 10.1 fL (7.4-10.4); NEUTROPHILS 66.4 % (40-80); PLATELET COUNT 276 10x3/uL (130-400); RBC 3.47 10x6/uL (4.20-6.10); RDW 15.6 % (11.5-14.5); WBC 8.1 10x3/uL (4.8-10.8)
[2017-05-22 04:46] LABS: ALBUMIN 1.9 g/dL (3.4-5.0); ANION GAP 11.4 mmol/L (8-16); BILIRUBIN - TOTAL 0.29 mg/dL (0.2-1.3); CALCIUM 7.8 mg/dL (8.5-10.1); CARBON DIOXIDE 25.9 mmol/L (21.0-32.0); CREATININE - SERUM 1.2 mg/dL (0.6-1.3); POTASSIUM - SERUM 3.3 mmol/L (3.5-5.1); PROTEIN - SERUM 6.3 g/dL (6.4-8.2)
[2017-05-22 08:05] VITALS: BP 151/43
[2017-05-22 12:05] VITALS: BP 181/63
[2017-05-22 17:02] VITALS: BP 107/71
[2017-05-22 23:02] VITALS: BP 172/70
[2017-05-23 02:45] VITALS: BP 159/55
[2017-05-23 04:32] VITALS: BP 161/50
[2017-05-23 10:13] VITALS: BP 145/69
[2017-05-23 16:25] LABS: HEMATOCRIT 28.4 % (42.0-54.0); HEMOGLOBIN 9.1 g/dL (13.5-17.5)
[2017-05-23 22:58] VITALS: BP 166/71
[2017-05-24 01:21] VITALS: BP 143/51
[2017-05-24 05:11] LABS: BASOPHILS 0.2 % (0-2); EOSINOPHILS 0.5 % (0-7); HEMATOCRIT 28.5 % (42.0-54.0); HEMOGLOBIN 8.9 g/dL (13.5-17.5); IMMATURE GRANULOCYTES 0.2 % (0-5); LYMPHOCYTES 13.8 % (15-50); MCH 26.7 pg (26.0-34.0); MCHC 31.2 g/dL (31.0-37.0); MCV 85.6 fL (80.0-100.0); MEAN PLATELET VOLUME 10.2 fL (7.4-10.4); MONOCYTES 7.1 % (2-11); NEUTROPHILS 78.2 % (40-80); PLATELET COUNT 238 10x3/uL (130-400); RBC 3.33 10x6/uL (4.20-6.10); RDW 15.8 % (11.5-14.5); WBC 9.3 10x3/uL (4.8-10.8)
[2017-05-24 05:44] VITALS: BP 154/54
[2017-05-24 05:45] LABS: ALBUMIN 1.9 g/dL (3.4-5.0); ANION GAP 9.9 mmol/L (8-16); BILIRUBIN - TOTAL 0.29 mg/dL (0.2-1.3); CALCIUM 8.1 mg/dL (8.5-10.1); CARBON DIOXIDE 26.3 mmol/L (21.0-32.0); CREATININE - SERUM 1.3 mg/dL (0.6-1.3); POTASSIUM - SERUM 4.2 mmol/L (3.5-5.1); PROTEIN - SERUM 6.3 g/dL (6.4-8.2)
[2017-05-24 08:32] VITALS: BP 159/69
[2017-05-24 12:07] VITALS: BP 178/72
[2017-05-24 16:22] LABS: HEMATOCRIT 26.6 % (42.0-54.0); HEMOGLOBIN 8.4 g/dL (13.5-17.5)
[2017-05-24 23:07] VITALS: BP 176/63
[2017-05-25 05:06] VITALS: BP 143/49
[2017-05-25 05:12] LABS: BASOPHILS 0.3 % (0-2); EOSINOPHILS 3.4 % (0-7); HEMATOCRIT 26.9 % (42.0-54.0); HEMOGLOBIN 8.2 g/dL (13.5-17.5); IMMATURE GRANULOCYTES 0.3 % (0-5); LYMPHOCYTES 18.8 % (15-50); MCH 26.4 pg (26.0-34.0); MCHC 30.5 g/dL (31.0-37.0); MCV 86.5 fL (80.0-100.0); MEAN PLATELET VOLUME 10.8 fL (7.4-10.4); MONOCYTES 10.5 % (2-11); NEUTROPHILS 66.7 % (40-80); PLATELET COUNT 239 10x3/uL (130-400); RBC 3.11 10x6/uL (4.20-6.10); RDW 16.1 % (11.5-14.5)
[2017-05-25 05:27] LABS: WBC 6.9 10x3/uL (4.8-10.8)
[2017-05-25 06:08] LABS: ALBUMIN 1.8 g/dL (3.4-5.0); ANION GAP 11.5 mmol/L (8-16); BILIRUBIN - TOTAL 0.25 mg/dL (0.2-1.3); CREATININE - SERUM 1.2 mg/dL (0.6-1.3); PROTEIN - SERUM 6.2 g/dL (6.4-8.2)
[2017-05-25 06:12] LABS: POTASSIUM - SERUM 3.5 mmol/L (3.5-5.1)
[2017-05-25 08:11] VITALS: BP 145/60
[2017-05-25 12:21] VITALS: BP 152/64
[2017-05-25 20:38] VITALS: BP 167/72
[2017-05-26 00:44] VITALS: BP 168/74
[2017-05-26 04:30] VITALS: BP 122/47
[2017-05-26 08:19] VITALS: BP 126/69
[2017-05-26 09:12] LABS: HEMATOCRIT 26.7 % (42.0-54.0); HEMOGLOBIN 8.2 g/dL (13.5-17.5)
[2017-05-26 11:47] VITALS: BP 159/58
[2017-05-26 16:03] VITALS: BP 178/76
[2017-05-26 22:18] VITALS: BP 132/54
[2017-05-27 04:29] VITALS: BP 159/46
[2017-05-27] MEDS ORDERED: PERCOCET 10/3251 TA1 PO (08:38)
[2017-05-27] MEDS ORDERED: ELIQUIS2.5 MG PO (08:38)
[2017-05-27 09:16] VITALS: BP 152/75
[2017-05-27 21:09] VITALS: BP 174/84
[2017-05-28 01:38] VITALS: BP 184/74
[2017-05-28 04:42] VITALS: BP 180/76
[2017-05-28 08:43] LABS: HEMATOCRIT 29.8 % (42.0-54.0); HEMOGLOBIN 9.5 g/dL (13.5-17.5)
[2017-05-28 08:51] LABS: CALCIUM 8.1 mg/dL (8.5-10.1); CARBON DIOXIDE 13.2 mmol/L (21.0-32.0); CHLORIDE - SERUM 106 mmol/L (98-107); SODIUM 140 mmol/L (136-145); UREA NITROGEN 7 mg/dL (7-18); eGFR NON AFRICAN AMERICAN 79 mL/min (90-120)
[2017-05-28 08:52] LABS: CALC OSMOLALITY 279 mosm/kg (275-300); GLUCOSE 144 mg/dL (74-106)
[2017-05-28 08:54] LABS: POTASSIUM - SERUM 2.9 mmol/L (3.5-5.1)
[2017-05-28 09:37] VITALS: BP 165/73
[2017-05-28 12:20] VITALS: BP 180/87
[2017-05-28 17:05] VITALS: BP 187/81
[2017-05-28 21:39] VITALS: BP 185/72
[2017-05-29 05:34] VITALS: BP 175/56
[2017-05-29 07:55] VITALS: BP 185/63
[2017-05-29 11:49] VITALS: BP 182/78
[2017-05-29 15:37] VITALS: BP 194/95
[2017-05-29 22:49] VITALS: BP 192/80
[2017-05-30 02:50] VITALS: BP 158/61
[2017-05-30 05:54] VITALS: BP 168/70
[2017-05-30 07:41] VITALS: BP 154/77
[2017-05-30 11:10] VITALS: BP 186/69
[2017-05-30 15:16] VITALS: BP 180/75
[2017-05-30 22:24] VITALS: BP 191/81
[2017-05-31 05:25] VITALS: BP 146/61
[2017-05-31 06:01] LABS: BASOPHILS 0.5 % (0-2); EOSINOPHILS 6.5 % (0-7); HEMATOCRIT 31.2 % (42.0-54.0); HEMOGLOBIN 9.9 g/dL (13.5-17.5); IMMATURE GRANULOCYTES 0.4 % (0-5); LYMPHOCYTES 26.1 % (15-50); MCH 26.9 pg (26.0-34.0); MCHC 31.7 g/dL (31.0-37.0); MCV 84.8 fL (80.0-100.0); MEAN PLATELET VOLUME 10.2 fL (7.4-10.4); MONOCYTES 8.9 % (2-11); NEUTROPHILS 57.6 % (40-80); PLATELET COUNT 293 10x3/uL (130-400); RBC 3.68 10x6/uL (4.20-6.10); RDW 16.1 % (11.5-14.5); WBC 5.7 10x3/uL (4.8-10.8)
[2017-05-31 06:28] LABS: ALBUMIN 1.9 g/dL (3.4-5.0); ANION GAP 9.6 mmol/L (8-16); BILIRUBIN - TOTAL 0.3 mg/dL (0.2-1.3); CARBON DIOXIDE 29.6 mmol/L (21.0-32.0); CREATININE - SERUM 1.1 mg/dL (0.6-1.3); POTASSIUM - SERUM 3.2 mmol/L (3.5-5.1); PROTEIN - SERUM 6.5 g/dL (6.4-8.2)
[2017-05-31 10:00] VITALS: BP 162/65
[2017-05-31 11:30] VITALS: BP 175/75
[2017-05-31 15:30] VITALS: BP 183/85
[2017-05-31 21:51] VITALS: BP 175/59
[2017-06-01 01:33] VITALS: BP 178/58
[2017-06-01 05:05] VITALS: BP 184/68
[2017-06-01 09:38] VITALS: BP 190/74
[2017-06-01 15:04] VITALS: BP 199/82
[2017-06-01 18:59] VITALS: BP 207/93
== END 2017-06-01 20:39 | disposition home health service (06) | DRG 854 ==
LOC: OBSVTIME → D.ER 14:24 → OBSVTIME 22:26 → D.EDHOLD 22:26 → D.ER 22:26 → D.MS 23:29 → OBSVTIME 23:29 → D.MS 05-12 15:18
PROVIDERS: Emergency Medicine; Family Medicine; Internal Medicine Nephrology; Nurse Practitioner Family; Orthopaedic Surgery
PROC: 0Y6J0Z3 Detachment at Left Lower Leg, Low, Open Approach (ICD-10-PCS; principal; 2017-05-23 08:00)
DX: A41.9 Sepsis, unspecified organism (principal); N17.9 Acute kidney failure, unspecified; M86.672 Other chronic osteomyelitis, left ankle and foot; I13.0 Hypertensive heart and chronic kidney disease with heart failure and stage 1 through stage 4 chronic kidney disease, or unspecified chronic kidney disease; K92.2 Gastrointestinal hemorrhage, unspecified; E11.52 Type 2 diabetes mellitus with diabetic peripheral angiopathy with gangrene; I96 Gangrene, not elsewhere classified; L03.116 Cellulitis of left lower limb; E11.65 Type 2 diabetes mellitus with hyperglycemia; E11.69 Type 2 diabetes mellitus with other specified complication; S92.002A Unspecified fracture of left calcaneus, initial encounter for closed fracture; X58.XXXA Exposure to other specified factors, initial encounter; Z91.19 Patient's noncompliance with other medical treatment and regimen; E11.22 Type 2 diabetes mellitus with diabetic chronic kidney disease; N18.3 Chronic kidney disease, stage 3 (moderate); I50.9 Heart failure, unspecified; D63.8 Anemia in other chronic diseases classified elsewhere; D50.9 Iron deficiency anemia, unspecified; E86.0 Dehydration

== ENCOUNTER 2017-07-11 22:25 | Inpatient (IN) | payer MEDICARE, MEDICAID ==
[~2017-07-11] VITALS: Ht 188 cm; Wt 68.2 kg
--- NOTE | ~2017-07-11 | EC ---
PATIENT:STEW AARON DATE OF SERVICE: 07/12/17 SEX: M MEDICAL RECORD: [id number] DATE OF : [birth year] LOCATION:D. D.211 AGE OF PATIENT: 71 ADMISSION DATE: 07/12/17 REFERRING PHYSICIAN: INTERPRETING PHYSICIAN: RICHARD HOWARD MD ECHOCARDIOGRAM REPORT ECHO CHARGES 4 ECHO COMPLETE Date: 07/13 CLINICAL DIAGNOSIS: SYNCOPE ECHOCARDIOGRAPHIC MEASUREMENTS (adult normal given) AC root (d.<3.7cm) 3.8 cm LV Septum d (<1.2 cm> 2.0 cm Valve Excursion 2.0 cm LV Septum (systole) 2.5 cm Left Atria (s.<4.0cm> 4.2 cm LVPW d(<1.2cm) 1.8 cm RV (d.<2.3cm) 2.5 cm LVPW (sytole) 2.3 cm LV diastole(<5.6CM) 4.9 cm MV E-F(>70mm/sec) cm LV systole 2.8 cm LVOT Diameter 2.0 cm MV exc.(>10mm) cm Est.ejection fraction (50-75%) % DOPPLER: LVIT cm/sec A 76.0 cm/sec E 42.0 cm/sec LA cm/sec RVSP mmHg LVOT 133 cm/sec AOP1/2T m/s Asc. Ao 148 cm/sec RVOT 115 cm/sec RA cm/sec PA 111 cm/sec AV Gradient Peak 8.8 mmHg AV Mean 4.0 mmHg AV Area 3.4 cm MV Gradient Peak 3.8 mmHg MV Mean 0.82 mmHg MV Area cm COMMENTS: Web Interface Developer: 1 ALLYN WINFIELD Sr Technical Sales Consultant: 4 Dr. Howard TAPE# PACS Pericardial Effusion N DATE OF SERVICE: PROCEDURE: Transthoracic echocardiogram. FINDINGS: 1. Left ventricle is difficult to visualize. Overall, it appears that there is normal LV systolic function, ejection fraction is 50% to 55%. There is no obvious regional wall motion abnormalities. Inflow characteristics are consistent with diastolic dysfunction and there is a suggestion of left ventricular hypertrophy. ECHOCARDIOGRAM REPORT [id number] STEW AARON 2. The left atrium is mildly dilated, otherwise normal function. 3. The aortic valve is normal. 4. The mitral valve is difficult to visualize, but grossly normal. 5. The tricuspid valve is difficult to visualize, but otherwise structurally normal. The RVSP appears to be normal. 6. The right ventricle and right atrium are normal in size, normal structure. 7. The pulmonic valve is normal. CONCLUSIONS: The patient has evidence of hypertensive heart disease. Otherwise, normal structure and function of the heart for the patient's stated age. TRANSINT:[id number] Voice Confirmation ID: [id number] DOCUMENT ID: [id number] RICHARD HOWARD MD at 0942 CC: [id number] DICTATION DATE: 07/14/17 0741 COMPUTER AIDED DESIGN OPERATOR: 07/14/17 1149 ADM IN [facility] [address] [place] [address]
--- NOTE | ~2017-07-11 | HP ---
PATIENT: STEW AARON MEDICAL RECORD: [id number] ACCOUNT: [id number] LOCATION:[facility].2109 : 47 ADMISSION DATE: 07/12/17 HISTORY AND PHYSICAL EXAMINATION HISTORY OF PRESENT ILLNESS: A 71-year-old male brought into the Emergency Room with a reported possible syncopal episode, generalized weakness, uncontrolled diabetes. PAST MEDICAL HISTORY: Significant for chronic kidney disease, dehydration, generalized weakness, hyperlipidemia, hypertension, poor control and poor compliance with insulin-dependent diabetes, left BKA. ALLERGIES: No known drug allergies. CURRENT MEDICATIONS: Listed as Triglide 160 mg daily, lisinopril 5 mg daily, simvastatin 40 mg daily, Lantus 90 units at bedtime, Plavix 75 mg daily, Coreg 6.25 mg b.i.d., and aspirin 325 mg daily. REVIEW OF SYSTEMS: GENERAL: No acute change in weight or appetite. HEENT: No cephalgia, visual changes, tinnitus, epistaxis, or dysphagia. CARDIOVASCULAR: Denies chest pain. Denies palpitations. PULMONARY: Denies hemoptysis. Denies night sweats. GASTROINTESTINAL: Denies hematemesis, hematochezia, or melena. GENITOURINARY: Denies dysuria. MUSCULOSKELETAL: Left BKA. Limited mobility. NEUROLOGIC: No present focal deficits. The patient reports does not believe he actually passed out, just felt lightheaded and has been weak. PHYSICAL EXAMINATION: VITAL SIGNS: Temperature 97.9, blood pressure is 105/54, heart rate 65, respirations 18, O2 sats 93% on room air. GENERAL: Alert, oriented, answers appropriately. No acute distress. Resting in bed. HEENT: Head: Normocephalic, atraumatic. Eyes: Pupils equal, round, reactive. Ears: Canals patent. TMs are intact. Nose: Nares patent without drainage. Throat: No erythema. No exudates. NECK: Supple. No lymphadenopathy. No JVD. HEART: Regular rate and rhythm. No S3 or S4. No rub. LUNGS: Clear to auscultation bilaterally. Breathing is nonlabored. ABDOMEN: Soft, nontender. Bowel sounds in all 4 quadrants. EXTREMITIES: Left BKA. No edema. NEUROLOGIC: No appreciable focal deficits. LABORATORY DATA: Chemistry shows a sodium of 141, potassium 3.1, chloride 103, bicarbonate 28.1, BUN 24, creatinine 1.9. ABG: PH of 7.419, pCO2 of 38.1, pO2 of 81. Urinalysis: Yellow, clear, glucose 1000. Urine drug screen negative. Lactic acid 1.6. CBC: White count 11.1, hemoglobin 15, hematocrit 44, platelets 193. ProBNP 2339. Lipase 737. CT of the abdomen: No significant acute abnormalities. He has a nonobstructive renal calculi. No other significant pathology. CT of the chest, PE protocol: No evidence of PE. CT of the head: No acute intracranial abnormality. ASSESSMENT AND PLAN: HISTORY AND PHYSICAL [id number] STEW AARON 1. Uncontrolled insulin-dependent diabetes, generalized weakness, questionable syncopal event, unable to care for himself at home, chronic kidney disease. 2. Abnormal EKG. We will cycle enzymes. Cardiology evaluation. TRANSINT:[id number] Voice Confirmation ID: [id number] DOCUMENT ID: [id number] BIRGIT ORONA DO at 1312 CC: [id number] DICTATION DATE: 07/12/17 1216 BODY TECHNICIAN/PAINTER: 07/12/17 1255 ADM IN [facility] [address] [id number]
[~2017-07-11 22:25] MED LIST changes: +ELIQUIS2.5 MG PO; +PERCOCET 10/3251 TA1 PO
[2017-07-11 22:48] LABS: BASOPHILS 0.2 % (0-2); EOSINOPHILS 1.1 % (0-7); IMMATURE GRANULOCYTES 0.4 % (0-5); MCH 29.5 pg (26.0-34.0); MCHC 34.1 g/dL (31.0-37.0); MCV 86.4 fL (80.0-100.0); MONOCYTES 5.1 % (2-11); NEUTROPHILS 85.2 % (40-80); PLATELET COUNT 193 10x3/uL (130-400); RBC 5.09 10x6/uL (4.20-6.10); RDW 14.6 % (11.5-14.5); WBC 11.1 10x3/uL (4.8-10.8)
[2017-07-11 23:13] LABS: ALBUMIN 3.1 g/dL (3.4-5.0); ALKALINE PHOSPHATASE 162 U/L (46-116); ALT (SGPT) 17 U/L (10-68); CALCIUM 8.8 mg/dL (8.5-10.1); CARBON DIOXIDE 28.2 mmol/L (21.0-32.0); CHLORIDE - SERUM 98 mmol/L (98-107); CREATINE KINASE 94 UL (21-232); CREATININE - SERUM 1.4 mg/dL (0.6-1.3); LIPASE 737 U/L (73-393); PRO BNP 2339 pg/mL (0-125); PROTEIN - SERUM 7.5 g/dL (6.4-8.2); SODIUM 133 mmol/L (136-145); TROPONIN-I < 0.017 ng/mL (0.000-0.060); UREA NITROGEN 22 mg/dL (7-18); eGFR NON AFRICAN AMERICAN 53 mL/min (90-120)
[2017-07-11 23:14] LABS: INR 0.93 (0.85-1.17); PROTIME 12.1 SECONDS (11.6-15.0)
[2017-07-11 23:14] LABS: CALC OSMOLALITY 304 mosm/kg (275-300); POTASSIUM - SERUM 4.8 mmol/L (3.5-5.1)
[2017-07-11 23:15] LABS: APTT 23.6 SECONDS (22.8-39.4)
[2017-07-11 23:15] LABS: GLUCOSE 740 mg/dL (74-106)
[2017-07-11 23:17] LABS: D-DIMER-QUANTITATIVE 1.68 ug/mLFEU (0.20-0.54)
[2017-07-11 23:20] LABS: APPEARANCE CLEAR (CLEAR); COLOR YELLOW (YELLOW); GLUCOSE 1000 mg/dL (NEGATIVE); NITRITE NEGATIVE (NEGATIVE); PROTEIN NEGATIVE (NEGATIVE); SPECIFIC GRAVITY 1.015 (1.005-1.020)
[2017-07-11 23:21] LABS: BILIRUBIN NEGATIVE (NEGATIVE); KETONE SMALL mg/dL (NEGATIVE); UROBILINOGEN NORMAL (NORMAL)
[2017-07-11 23:22] LABS: KETONE - SERUM SMALL mg/dL (NEGATIVE)
[2017-07-11 23:27] LABS: UDS - AMPHET NEGATIVE QUAL (NEGATIVE); UDS - BARB NEGATIVE QUAL (NEGATIVE); UDS - BENZO NEGATIVE QUAL (NEGATIVE); UDS - COCAINE NEGATIVE QUAL (NEGATIVE); UDS - OPIATE NEGATIVE QUAL (NEGATIVE); UDS - PCP NEGATIVE QUAL (NEGATIVE); UDS - THC NEGATIVE QUAL (NEGATIVE)
[2017-07-12 02:18] LABS: CARBON DIOXIDE 28.1 mmol/L (21.0-32.0)
[2017-07-12 02:27] LABS: CREATININE - SERUM 1.9 mg/dL (0.6-1.3); POTASSIUM - SERUM 3.1 mmol/L (3.5-5.1)
[2017-07-12 04:47] VITALS: BP 144/74; BMI 32.1
[2017-07-12 05:00] VITALS: BP 93/51
[2017-07-12 09:07] VITALS: BP 105/54
[2017-07-12 12:51] VITALS: BP 131/64
[2017-07-12 16:41] VITALS: BP 129/56
[2017-07-12 20:00] VITALS: BP 129/69
[2017-07-13 01:00] VITALS: BP 153/58
[2017-07-13 04:00] VITALS: BP 101/44
[2017-07-13 04:38] LABS: BASOPHILS 0.4 % (0-2); EOSINOPHILS 4.1 % (0-7); HEMATOCRIT 37.5 % (42.0-54.0); HEMOGLOBIN 12.8 g/dL (13.5-17.5); IMMATURE GRANULOCYTES 0.2 % (0-5); MCH 28.8 pg (26.0-34.0); MCHC 34.1 g/dL (31.0-37.0); MCV 84.5 fL (80.0-100.0); MEAN PLATELET VOLUME 11.6 fL (7.4-10.4); MONOCYTES 7.2 % (2-11); NEUTROPHILS 63.1 % (40-80); PLATELET COUNT 182 10x3/uL (130-400); RBC 4.44 10x6/uL (4.20-6.10); RDW 15.1 % (11.5-14.5); WBC 8.9 10x3/uL (4.8-10.8)
[2017-07-13 04:42] LABS: INR 0.99 (0.85-1.17); PROTIME 12.7 SECONDS (11.6-15.0)
[2017-07-13 04:43] LABS: APTT 20.9 SECONDS (22.8-39.4)
[2017-07-13 04:56] LABS: ALBUMIN 2.6 g/dL (3.4-5.0); ALKALINE PHOSPHATASE 106 U/L (46-116); ALT (SGPT) 15 U/L (10-68); CALCIUM 8.6 mg/dL (8.5-10.1); CARBON DIOXIDE 27.4 mmol/L (21.0-32.0); CHLORIDE - SERUM 101 mmol/L (98-107); CKMB 1.4 U/L (0.0-3.6); CREATININE - SERUM 1.8 mg/dL (0.6-1.3); MAGNESIUM - SERUM 1.9 mg/dL (1.8-2.4); PHOSPHOROUS 4.2 mg/dL (2.5-4.9); POTASSIUM - SERUM 3.1 mmol/L (3.5-5.1); PROTEIN - SERUM 6.3 g/dL (6.4-8.2); SODIUM 138 mmol/L (136-145); TROPONIN-I 0.032 ng/mL (0.000-0.060); UREA NITROGEN 26 mg/dL (7-18); eGFR NON AFRICAN AMERICAN 40 mL/min (90-120)
[2017-07-13 04:58] LABS: CALC OSMOLALITY 292 mosm/kg (275-300); GLUCOSE 319 mg/dL (74-106)
[2017-07-13 08:52] VITALS: BP 147/82
[2017-07-13 12:57] VITALS: Ht 188 cm; Wt 68.2 kg
[2017-07-13 16:15] VITALS: BP 162/72
[2017-07-13 20:03] VITALS: BP 137/64
[2017-07-14] VITALS: BP 146/53
[2017-07-14 04:00] VITALS: BP 139/57
[2017-07-14 05:44] LABS: BASOPHILS 0.2 % (0-2); EOSINOPHILS 4.3 % (0-7); HEMATOCRIT 37.3 % (42.0-54.0); HEMOGLOBIN 12.7 g/dL (13.5-17.5); IMMATURE GRANULOCYTES 0.3 % (0-5); MCH 28.9 pg (26.0-34.0); MEAN PLATELET VOLUME 11.4 fL (7.4-10.4); NEUTROPHILS 60.2 % (40-80); PLATELET COUNT 185 10x3/uL (130-400); RBC 4.39 10x6/uL (4.20-6.10); RDW 15.1 % (11.5-14.5); WBC 8.7 10x3/uL (4.8-10.8)
[2017-07-14 06:15] LABS: ALBUMIN 2.5 g/dL (3.4-5.0); ANION GAP 9.7 mmol/L (8-16); BILIRUBIN - TOTAL 0.2 mg/dL (0.2-1.3); CALCIUM 8.9 mg/dL (8.5-10.1); CARBON DIOXIDE 30.2 mmol/L (21.0-32.0); CREATININE - SERUM 1.7 mg/dL (0.6-1.3); PROTEIN - SERUM 6.3 g/dL (6.4-8.2)
[2017-07-14 06:25] LABS: POTASSIUM - SERUM 2.9 mmol/L (3.5-5.1)
[2017-07-14 07:43] VITALS: BP 125/51
[2017-07-14 11:21] VITALS: BP 116/51
[2017-07-14 15:19] VITALS: BP 163/64
[2017-07-14 20:00] VITALS: BP 92/58
[2017-07-15] VITALS: BP 115/33
[2017-07-15 04:00] VITALS: BP 112/70
[2017-07-15 09:10] VITALS: BP 113/44
[2017-07-15 12:00] VITALS: BP 136/52
[2017-07-15 15:43] LABS: BASOPHILS 0.1 % (0-2); EOSINOPHILS 3.3 % (0-7); HEMATOCRIT 42.9 % (42.0-54.0); HEMOGLOBIN 14.6 g/dL (13.5-17.5); IMMATURE GRANULOCYTES 0.2 % (0-5); LYMPHOCYTES 18.8 % (15-50); MCH 29.3 pg (26.0-34.0); MCV 86.1 fL (80.0-100.0); MEAN PLATELET VOLUME 10.8 fL (7.4-10.4); NEUTROPHILS 70.6 % (40-80); PLATELET COUNT 176 10x3/uL (130-400); RBC 4.98 10x6/uL (4.20-6.10); WBC 8.5 10x3/uL (4.8-10.8)
[2017-07-15 16:32] LABS: ALBUMIN 3.1 g/dL (3.4-5.0); ALKALINE PHOSPHATASE 97 U/L (46-116); ALT (SGPT) 12 U/L (10-68); BILIRUBIN - TOTAL 0.34 mg/dL (0.2-1.3); CALC OSMOLALITY 283 mosm/kg (275-300); CALCIUM 10.1 mg/dL (8.5-10.1); CARBON DIOXIDE 28.8 mmol/L (21.0-32.0); CHLORIDE - SERUM 102 mmol/L (98-107); CKMB 0.9 U/L (0.0-3.6); CREATINE KINASE 22 UL (21-232); CREATININE - SERUM 1.4 mg/dL (0.6-1.3); GLUCOSE 121 mg/dL (74-106); MAGNESIUM - SERUM 1.9 mg/dL (1.8-2.4); PROTEIN - SERUM 7.1 g/dL (6.4-8.2); SODIUM 140 mmol/L (136-145); UREA NITROGEN 24 mg/dL (7-18); eGFR NON AFRICAN AMERICAN 53 mL/min (90-120)
[2017-07-15 16:34] LABS: POTASSIUM - SERUM 3.6 mmol/L (3.5-5.1); TROPONIN-I < 0.017 ng/mL (0.000-0.060)
[2017-07-15 16:37] VITALS: BP 148/58
[2017-07-15 20:31] LABS: CREATINE KINASE 22 UL (21-232); TROPONIN-I 0.018 ng/mL (0.000-0.060)
[2017-07-15 21:08] VITALS: BP 132/57
[2017-07-16] VITALS: BP 106/44; BP 132/49
[2017-07-16 02:51] LABS: BASOPHILS 0.1 % (0-2); EOSINOPHILS 3.1 % (0-7); HEMATOCRIT 37.3 % (42.0-54.0); HEMOGLOBIN 12.6 g/dL (13.5-17.5); IMMATURE GRANULOCYTES 0.4 % (0-5); LYMPHOCYTES 26.2 % (15-50); MCH 28.9 pg (26.0-34.0); MCHC 33.8 g/dL (31.0-37.0); MCV 85.6 fL (80.0-100.0); MEAN PLATELET VOLUME 10.9 fL (7.4-10.4); MONOCYTES 10.8 % (2-11); NEUTROPHILS 59.4 % (40-80); PLATELET COUNT 182 10x3/uL (130-400); RBC 4.36 10x6/uL (4.20-6.10); WBC 8.4 10x3/uL (4.8-10.8)
[2017-07-16 03:14] LABS: ALBUMIN 2.6 g/dL (3.4-5.0); ALKALINE PHOSPHATASE 78 U/L (46-116); ALT (SGPT) 12 U/L (10-68); CALC OSMOLALITY 286 mosm/kg (275-300); CALCIUM 8.8 mg/dL (8.5-10.1); CARBON DIOXIDE 28.3 mmol/L (21.0-32.0); CHLORIDE - SERUM 103 mmol/L (98-107); CKMB 0.5 U/L (0.0-3.6); CREATINE KINASE 16 UL (21-232); CREATININE - SERUM 1.5 mg/dL (0.6-1.3); POTASSIUM - SERUM 3.3 mmol/L (3.5-5.1); PROTEIN - SERUM 6.6 g/dL (6.4-8.2); SODIUM 139 mmol/L (136-145); TROPONIN-I 0.018 ng/mL (0.000-0.060); UREA NITROGEN 23 mg/dL (7-18); eGFR NON AFRICAN AMERICAN 49 mL/min (90-120)
[2017-07-16 03:23] LABS: GLUCOSE 190 mg/dL (74-106)
[2017-07-16 04:00] VITALS: BP 132/49
[2017-07-16 08:27] VITALS: BP 115/58
[2017-07-16 13:12] VITALS: BP 122/43
[2017-07-16 16:51] VITALS: BP 150/58
[2017-07-16 20:33] VITALS: BP 135/51
[2017-07-17 01:00] VITALS: BP 120/45
[2017-07-17 04:00] VITALS: BP 118/48
[2017-07-17 08:39] VITALS: BP 130/53
[2017-07-17 12:17] VITALS: BP 139/57
== END 2017-07-17 19:19 | disposition home health service (06) | DRG 700 ==
LOC: D.ER 22:25 → D.EDHOLD 07-12 01:59 → D.M2 07-12 01:59
PROVIDERS: Family Medicine
DX: E11.22 Type 2 diabetes mellitus with diabetic chronic kidney disease (principal); E11.65 Type 2 diabetes mellitus with hyperglycemia; I12.9 Hypertensive chronic kidney disease with stage 1 through stage 4 chronic kidney disease, or unspecified chronic kidney disease; N18.3 Chronic kidney disease, stage 3 (moderate); Z79.4 Long term (current) use of insulin; Z89.512 Acquired absence of left leg below knee; R94.31 Abnormal electrocardiogram [ECG] [EKG]; E78.5 Hyperlipidemia, unspecified; E86.0 Dehydration; I25.10 Atherosclerotic heart disease of native coronary artery without angina pectoris; Z87.891 Personal history of nicotine dependence

== ENCOUNTER 2017-07-25 17:30 | Inpatient (IN) | payer MEDICARE, MEDICAID ==
[~2017-07-25] VITALS: Ht 182.9 cm; Wt 90.9 kg
--- NOTE | ~2017-07-25 | OP ---
PATIENT NAME: STEW AARON MEDICAL RECORD: [id number] :49 LOCATION:D. D.2131 ADMISSION DATE:07/25/17 SURGEON: LUISA LANG MD DATE OF OPERATION: 07/27/2017 SURGEON: Luisa Lang MD (JJ) DIRECTOR FOOD AND BEVERAGE: Michael Kaba APN PREOPERATIVE DIAGNOSIS: Cellulitis and abscess of left buttock. POSTOPERATIVE DIAGNOSIS: Multiloculated complex abscess with cellulitis of the left buttock. ANESTHESIA: General. SPECIMENS: None. PROCEDURE: Incision and drainage of multiloculated complex abscess with cellulitis 8 x 6 x 4 cm. Case was grossly contaminated. OPERATIVE COURSE: After consent was obtained, the patient was taken to the operating room and placed in the supine position on the operating table. Next, general anesthesia was given via endotracheal intubation. After the patient was placed in the left lateral decubitus position, a timeout was taken to confirm the correct patient and procedure. An elliptical skin incision was made over the indurated tissue approximately 6 cm in length and there was an immediate return of 50 to 60 cc of purulent drainage. Wound cultures were obtained and sent for microbiology and Gram stain. The loculations were taken down with a combination of blunt dissection and sharp scissor dissection. All necrotic tissue was debrided using sharp scissor excision. The abscess cavity was 8 cm in length, 6 cm in width and 4 cm in depth. The abscess cavity extended to the muscular layer through the subcutaneous tissue and into the muscle layer of the posterior on the right buttock. The wound was copiously irrigated and suctioned. The wound was then packed with Kerlix that was soaked in iodine and hydrogen peroxide. It was covered with sterile gauze dressings. At the end of the case, all needle and instrument counts were correct. No complications occurred. The patient was extubated and transported to the PACU in stable condition. TRANSINT:[id number] Voice Confirmation ID: [id number] DOCUMENT ID: [id number] LUISA LANG MD at 2256 CC: [id number] DICTATION DATE: 07/27/17 1220 RANGE MECHANIC: 07/27/17 1239 [place] [address]
[2017-07-25 18:29] LABS: BASOPHILS 0.3 % (0-2); EOSINOPHILS 1.9 % (0-7); HEMATOCRIT 41.3 % (42.0-54.0); IMMATURE GRANULOCYTES 0.4 % (0-5); LYMPHOCYTES 8.9 % (15-50); MCH 29.4 pg (26.0-34.0); MCHC 33.9 g/dL (31.0-37.0); MCV 86.8 fL (80.0-100.0); MEAN PLATELET VOLUME 10.5 fL (7.4-10.4); MONOCYTES 6.2 % (2-11); NEUTROPHILS 82.3 % (40-80); RBC 4.76 10x6/uL (4.20-6.10); WBC 13.8 10x3/uL (4.8-10.8)
[2017-07-25 18:30] LABS: PLATELET COUNT 271 10x3/uL (130-400)
[2017-07-25 18:43] LABS: ALBUMIN 2.2 g/dL (3.4-5.0); ANION GAP 10.4 mmol/L (8-16); BILIRUBIN - TOTAL 0.28 mg/dL (0.2-1.3); CALCIUM 8.8 mg/dL (8.5-10.1); CARBON DIOXIDE 29.9 mmol/L (21.0-32.0); CREATININE - SERUM 1.7 mg/dL (0.6-1.3); POTASSIUM - SERUM 3.3 mmol/L (3.5-5.1); PROTEIN - SERUM 7.4 g/dL (6.4-8.2)
[2017-07-25 19:05] LABS: APPEARANCE CLEAR (CLEAR); BILIRUBIN NEGATIVE (NEGATIVE); COLOR YELLOW (YELLOW); GLUCOSE 1000 mg/dL (NEGATIVE); KETONE SMALL mg/dL (NEGATIVE); NITRITE NEGATIVE (NEGATIVE); PROTEIN 2+ mg/dL (NEGATIVE); SPECIFIC GRAVITY 1.015 (1.005-1.020); UROBILINOGEN NORMAL (NORMAL)
[2017-07-25 19:06] LABS: RED CELLS - URINE 0-5 /hpf (0-5)
[2017-07-25 19:07] LABS: BACTERIA FEW /hpf (NONE SEEN)
[2017-07-25 19:08] LABS: YEAST OCC /hpf (NONE SEEN)
[2017-07-26] VITALS: BP 143/54
[2017-07-26 04:00] VITALS: BP 126/51
[2017-07-26 06:33] LABS: BASOPHILS 0.2 % (0-2); EOSINOPHILS 3.1 % (0-7); HEMATOCRIT 34.4 % (42.0-54.0); HEMOGLOBIN 11.4 g/dL (13.5-17.5); IMMATURE GRANULOCYTES 0.3 % (0-5); LYMPHOCYTES 9.9 % (15-50); MCH 28.4 pg (26.0-34.0); MCHC 33.1 g/dL (31.0-37.0); MCV 85.8 fL (80.0-100.0); MEAN PLATELET VOLUME 10.5 fL (7.4-10.4); MONOCYTES 7.5 % (2-11); PLATELET COUNT 267 10x3/uL (130-400); RBC 4.01 10x6/uL (4.20-6.10); RDW 14.1 % (11.5-14.5); WBC 13.7 10x3/uL (4.8-10.8)
[2017-07-26 07:19] LABS: ANION GAP 14.1 mmol/L (8-16); CARBON DIOXIDE 23.9 mmol/L (21.0-32.0); CREATININE - SERUM 1.5 mg/dL (0.6-1.3)
[2017-07-26 08:44] VITALS: BP 103/37
[2017-07-26 11:42] VITALS: BP 133/45
[2017-07-26 15:23] VITALS: BP 187/61
[2017-07-26 20:00] VITALS: BP 90/33
[2017-07-27] VITALS: BP 94/44
[2017-07-27 04:00] VITALS: BP 142/57
[2017-07-27 04:29] LABS: BASOPHILS 0.2 % (0-2); EOSINOPHILS 3.5 % (0-7); HEMATOCRIT 33.4 % (42.0-54.0); HEMOGLOBIN 11.2 g/dL (13.5-17.5); IMMATURE GRANULOCYTES 0.3 % (0-5); LYMPHOCYTES 11.3 % (15-50); MCH 28.6 pg (26.0-34.0); MCHC 33.5 g/dL (31.0-37.0); MCV 85.2 fL (80.0-100.0); MEAN PLATELET VOLUME 10.5 fL (7.4-10.4); MONOCYTES 8.2 % (2-11); NEUTROPHILS 76.5 % (40-80); PLATELET COUNT 264 10x3/uL (130-400); RBC 3.92 10x6/uL (4.20-6.10); RDW 14.2 % (11.5-14.5); WBC 13.3 10x3/uL (4.8-10.8)
[2017-07-27 04:39] LABS: ALBUMIN 1.7 g/dL (3.4-5.0); BILIRUBIN - TOTAL 0.2 mg/dL (0.2-1.3); CALCIUM 7.8 mg/dL (8.5-10.1); MAGNESIUM - SERUM 1.3 mg/dL (1.8-2.4); PHOSPHOROUS 2.6 mg/dL (2.5-4.9)
[2017-07-27 04:40] LABS: CREATININE - SERUM 1.9 mg/dL (0.6-1.3)
[2017-07-27 04:41] LABS: ANION GAP 9.7 mmol/L (8-16); POTASSIUM - SERUM 2.7 mmol/L (3.5-5.1)
[2017-07-27 08:19] VITALS: BP 131/45
[2017-07-27 10:40] VITALS: BMI 27.7
[2017-07-27 13:23] VITALS: BP 125/51
[2017-07-27 15:00] VITALS: BP 152/60
[2017-07-27 20:50] VITALS: BP 142/61
[2017-07-28 01:02] VITALS: BP 108/48
[2017-07-28 05:05] LABS: BASOPHILS 0.3 % (0-2); EOSINOPHILS 4.4 % (0-7); HEMATOCRIT 32.9 % (42.0-54.0); HEMOGLOBIN 10.8 g/dL (13.5-17.5); IMMATURE GRANULOCYTES 0.4 % (0-5); LYMPHOCYTES 16.4 % (15-50); MCH 28.6 pg (26.0-34.0); MCHC 32.8 g/dL (31.0-37.0); MEAN PLATELET VOLUME 10.5 fL (7.4-10.4); MONOCYTES 7.7 % (2-11); NEUTROPHILS 70.8 % (40-80); PLATELET COUNT 270 10x3/uL (130-400); RBC 3.77 10x6/uL (4.20-6.10); RDW 14.5 % (11.5-14.5); WBC 11.3 10x3/uL (4.8-10.8)
[2017-07-28 05:30] VITALS: BP 127/54
[2017-07-28 05:36] LABS: ALBUMIN 1.6 g/dL (3.4-5.0); ANION GAP 14.4 mmol/L (8-16); BILIRUBIN - TOTAL 0.24 mg/dL (0.2-1.3); CALCIUM 7.6 mg/dL (8.5-10.1); CARBON DIOXIDE 24.2 mmol/L (21.0-32.0); POTASSIUM - SERUM 3.6 mmol/L (3.5-5.1); PROTEIN - SERUM 5.7 g/dL (6.4-8.2)
[2017-07-28 05:37] LABS: MCV 87.3 fL (80.0-100.0)
[2017-07-28 07:43] VITALS: BP 152/60
[2017-07-28 15:50] VITALS: BP 143/75
[2017-07-28 20:00] VITALS: BP 170/72
[2017-07-29] VITALS: BP 136/46
[2017-07-29 04:00] VITALS: BP 165/59
[2017-07-29 05:19] LABS: BASOPHILS 0.2 % (0-2); EOSINOPHILS 4.3 % (0-7); HEMATOCRIT 33.2 % (42.0-54.0); HEMOGLOBIN 10.9 g/dL (13.5-17.5); IMMATURE GRANULOCYTES 0.6 % (0-5); LYMPHOCYTES 14.5 % (15-50); MCH 28.7 pg (26.0-34.0); MCHC 32.8 g/dL (31.0-37.0); MCV 87.4 fL (80.0-100.0); MEAN PLATELET VOLUME 10.4 fL (7.4-10.4); MONOCYTES 6.8 % (2-11); NEUTROPHILS 73.6 % (40-80); PLATELET COUNT 259 10x3/uL (130-400); RDW 14.5 % (11.5-14.5); WBC 10.3 10x3/uL (4.8-10.8)
[2017-07-29 05:48] LABS: ALBUMIN 1.5 g/dL (3.4-5.0); ANION GAP 13.1 mmol/L (8-16); BILIRUBIN - TOTAL 0.2 mg/dL (0.2-1.3); CALCIUM 7.6 mg/dL (8.5-10.1); CARBON DIOXIDE 23.9 mmol/L (21.0-32.0); CREATININE - SERUM 2.2 mg/dL (0.6-1.3); PROTEIN - SERUM 5.6 g/dL (6.4-8.2)
[2017-07-29 08:02] VITALS: BP 136/75
[2017-07-29 10:38] VITALS: BP 131/69
[2017-07-29 17:38] VITALS: BP 136/68
[2017-07-29 20:00] VITALS: BP 152/64
[2017-07-30] VITALS: BP 129/46
[2017-07-30 04:00] VITALS: BP 131/60
[2017-07-30 08:05] VITALS: BP 148/50
[2017-07-30 11:49] VITALS: BP 142/54
[2017-07-30 16:05] VITALS: BP 110/84
[2017-07-30 21:16] VITALS: BP 164/56
[2017-07-31 01:25] VITALS: BP 138/61
[2017-07-31 04:56] VITALS: BP 122/55
[2017-07-31 07:41] VITALS: BP 126/50
[2017-07-31 11:21] VITALS: BP 151/78
[2017-07-31 16:13] VITALS: BP 149/65
[2017-07-31 21:10] VITALS: BP 170/72
[2017-08-01 01:12] VITALS: BP 144/54
[2017-08-01 05:40] VITALS: BP 130/72
[2017-08-01 07:39] VITALS: BP 142/71
[2017-08-01 11:14] VITALS: BP 136/64
[2017-08-01 14:41] VITALS: BP 133/75
[2017-08-01 20:00] VITALS: BP 154/64
[2017-08-02] VITALS: BP 133/50
[2017-08-02 04:00] VITALS: BP 154/58
[2017-08-02 07:37] LABS: BASOPHILS 0.1 % (0-2); EOSINOPHILS 3.5 % (0-7); HEMATOCRIT 32.9 % (42.0-54.0); HEMOGLOBIN 10.6 g/dL (13.5-17.5); IMMATURE GRANULOCYTES 0.8 % (0-5); LYMPHOCYTES 14.7 % (15-50); MCH 28.6 pg (26.0-34.0); MCHC 32.2 g/dL (31.0-37.0); MCV 88.7 fL (80.0-100.0); MEAN PLATELET VOLUME 9.9 fL (7.4-10.4); MONOCYTES 8.9 % (2-11); PLATELET COUNT 247 10x3/uL (130-400); RBC 3.71 10x6/uL (4.20-6.10); RDW 14.7 % (11.5-14.5); WBC 9.6 10x3/uL (4.8-10.8)
[2017-08-02 07:49] LABS: CALCIUM 7.6 mg/dL (8.5-10.1); CARBON DIOXIDE 24.1 mmol/L (21.0-32.0); POTASSIUM - SERUM 4.1 mmol/L (3.5-5.1); VANCOMYCIN - RANDOM 14.3 ug/mL (10.0-20.0)
[2017-08-02 08:25] VITALS: BP 141/68
[2017-08-02 12:21] VITALS: BP 134/69
[2017-08-02 15:29] VITALS: BP 139/72
[2017-08-02 20:00] VITALS: BP 149/58
[2017-08-03] VITALS: BP 135/54
[2017-08-03 04:00] VITALS: BP 160/57
[2017-08-03 08:02] VITALS: BP 138/64
[2017-08-03 12:56] VITALS: BP 132/69
[2017-08-03 15:08] VITALS: BP 138/62
[2017-08-03 20:00] VITALS: BP 98/64
[2017-08-04] VITALS: BP 132/57
[2017-08-04 03:47] VITALS: Ht 182.9 cm; Wt 90.9 kg
[2017-08-04 04:00] VITALS: BP 146/52
[2017-08-04 04:42] LABS: BASOPHILS 0.3 % (0-2); EOSINOPHILS 2.6 % (0-7); HEMATOCRIT 31.3 % (42.0-54.0); HEMOGLOBIN 10.1 g/dL (13.5-17.5); IMMATURE GRANULOCYTES 0.8 % (0-5); LYMPHOCYTES 15.7 % (15-50); MCH 28.7 pg (26.0-34.0); MCHC 32.3 g/dL (31.0-37.0); MCV 88.9 fL (80.0-100.0); MEAN PLATELET VOLUME 10.1 fL (7.4-10.4); NEUTROPHILS 71.6 % (40-80); PLATELET COUNT 283 10x3/uL (130-400); RBC 3.52 10x6/uL (4.20-6.10); RDW 14.6 % (11.5-14.5); WBC 7.7 10x3/uL (4.8-10.8)
[2017-08-04 04:53] LABS: ANION GAP 10.7 mmol/L (8-16); CALCIUM 7.4 mg/dL (8.5-10.1); CARBON DIOXIDE 25.9 mmol/L (21.0-32.0); POTASSIUM - SERUM 3.6 mmol/L (3.5-5.1)
[2017-08-04 07:49] VITALS: BP 183/54
[2017-08-04 11:22] VITALS: BP 172/72
[2017-08-04] MEDS ORDERED: BACTRIM DS TABL1 TAB PO (12:33)
[2017-08-04 15:22] VITALS: BP 147/52
== END 2017-08-04 17:33 | DRG 638 ==
LOC: D.ER 17:30 → D.EDHOLD 21:00 → D.M2 21:00
PROVIDERS: Family Medicine; Nurse Practitioner Family; Surgery
PROC: 0HB8XZZ Excision of Buttock Skin, External Approach (ICD-10-PCS; 2017-07-27)
PROC: 0H98XZZ Drainage of Buttock Skin, External Approach (ICD-10-PCS; principal; 2017-07-27 10:30)
DX: E11.628 Type 2 diabetes mellitus with other skin complications (principal); L03.317 Cellulitis of buttock; I13.0 Hypertensive heart and chronic kidney disease with heart failure and stage 1 through stage 4 chronic kidney disease, or unspecified chronic kidney disease; E11.22 Type 2 diabetes mellitus with diabetic chronic kidney disease; N18.3 Chronic kidney disease, stage 3 (moderate); I50.9 Heart failure, unspecified; Z79.4 Long term (current) use of insulin; E11.40 Type 2 diabetes mellitus with diabetic neuropathy, unspecified; I25.10 Atherosclerotic heart disease of native coronary artery without angina pectoris; B95.62 Methicillin resistant Staphylococcus aureus infection as the cause of diseases classified elsewhere; Z86.73 Personal history of transient ischemic attack (TIA), and cerebral infarction without residual deficits; Z91.19 Patient's noncompliance with other medical treatment and regimen

== ENCOUNTER 2017-09-11 22:00 | Emergency (ER) | payer MEDICARE, MEDICAID ==
[~2017-09-11] VITALS: Ht 182.9 cm; Wt 113.6 kg
[2017-09-11 22:17] VITALS: Ht 182.9 cm; Wt 113.6 kg
[2017-09-11 22:53] LABS: APPEARANCE CLEAR (CLEAR); BILIRUBIN NEGATIVE (NEGATIVE); COLOR YELLOW (YELLOW); GLUCOSE 1000 mg/dL (NEGATIVE); KETONE SMALL mg/dL (NEGATIVE); NITRITE NEGATIVE (NEGATIVE); PROTEIN NEGATIVE (NEGATIVE); SPECIFIC GRAVITY 1.005 (1.005-1.020); UROBILINOGEN NORMAL (NORMAL)
[2017-09-11 22:59] LABS: BASOPHILS 0.3 % (0-2); EOSINOPHILS 3.1 % (0-7); HEMATOCRIT 37.6 % (42.0-54.0); HEMOGLOBIN 12.1 g/dL (13.5-17.5); IMMATURE GRANULOCYTES 0.4 % (0-5); LYMPHOCYTES 10.6 % (15-50); MCHC 32.2 g/dL (31.0-37.0); MCV 90.2 fL (80.0-100.0); MEAN PLATELET VOLUME 11.3 fL (7.4-10.4); MONOCYTES 5.6 % (2-11); PLATELET COUNT 259 10x3/uL (130-400); RBC 4.17 10x6/uL (4.20-6.10); RDW 13.3 % (11.5-14.5); WBC 13.6 10x3/uL (4.8-10.8)
[2017-09-11 23:15] LABS: APTT 23.3 SECONDS (22.8-39.4); INR 0.97 (0.85-1.17); PROTIME 12.5 SECONDS (11.6-15.0)
[2017-09-11 23:27] LABS: KETONE - SERUM NEGATIVE (NEGATIVE)
[2017-09-11 23:30] LABS: D-DIMER-QUANTITATIVE 4.46 ug/mLFEU (0.20-0.54)
[2017-09-11 23:32] LABS: ALBUMIN 2.2 g/dL (3.4-5.0); ALKALINE PHOSPHATASE 139 U/L (46-116); ALT (SGPT) 14 U/L (10-68); BILIRUBIN - TOTAL 0.23 mg/dL (0.2-1.3); CALCIUM 8.4 mg/dL (8.5-10.1); CARBON DIOXIDE 30.4 mmol/L (21.0-32.0); CHLORIDE - SERUM 98 mmol/L (98-107); CKMB 1.5 U/L (0.0-3.6); CREATINE KINASE 36 UL (21-232); CREATININE - SERUM 1.6 mg/dL (0.6-1.3); MAGNESIUM - SERUM 1.7 mg/dL (1.8-2.4); PHOSPHOROUS 3.2 mg/dL (2.5-4.9); POTASSIUM - SERUM 3.4 mmol/L (3.5-5.1); PROTEIN - SERUM 6.9 g/dL (6.4-8.2); SODIUM 137 mmol/L (136-145); THYROID STIMULATING HORMONE 2.12 uIU/mL (0.36-3.74); UREA NITROGEN 22 mg/dL (7-18); eGFR NON AFRICAN AMERICAN 46 mL/min (90-120)
[2017-09-11 23:33] LABS: CALC OSMOLALITY 311 mosm/kg (275-300); GLUCOSE 731 mg/dL (74-106)
[2017-09-11 23:34] LABS: TROPONIN-I 0.109 ng/mL (0.000-0.060)
[2017-09-12 03:22] VITALS: BP 160/76
== END 2017-09-12 03:22 | disposition other institution (70) ==
LOC: D.ER 22:00
PROVIDERS: Family Medicine
DX: R56.9 Unspecified convulsions (principal)